=== PATIENT | female | born 1940 | race Caucasian/White ===

== ENCOUNTER 2019-07-29 11:47 | Outpatient (CLI) | payer MEDICARE, SELFPAY ==
--- NOTE | ~2019-07-29 | MM_ITS ---
MM screen RT diag LT w mariano DATE: 07/29/2019 12:14 INDICATION: Microcalcification follow-up TECHNIQUE: Digital ML, MLO and cc Tomosynthesis with composite 2-D views. COMPARISON: 03/07/2019, 08/14/2018 left diagnostic digital mammogram examinations 07/25/2018, 07/17/2017, 07/15/2016 bilateral digital screening mammogram examinations FINDINGS: Bilateral scattered benign calcifications including some regional secretory benign-appearin g calcifications on the left. No suspicious mass or architectural distortion, malignant calcification , skin thickening or retraction or significant new or developing density is detected. IMPRESSION: BI-RADS Category 2: Benign Recommendation: Routine mammographic screening Reviewed, dictated and finalized at Location A. Reviewed, dictated and finalized at location A. 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
== END 2019-07-29 11:48 | disposition home or self-care (01) ==
PROVIDERS: PCP Internal Medicine; Visit Provider Internal Medicine
DX: Z12.31 Encounter for screening mammogram for malignant neoplasm of breast (principal); R92.8 Other abnormal and inconclusive findings on diagnostic imaging of breast
CPT/HCPCS: 77063; 77065; 77067

== ENCOUNTER 2020-12-29 09:45 | Outpatient (CLI) | payer MEDICARE, SELFPAY ==
--- NOTE | ~2020-12-29 | MM_ITS ---
EXAMINATION: MM screening elicia BI w mariano HISTORY: Screening TECHNIQUE: Craniocaudal and mediolateral oblique 3-D tomosynthesis images were obtained and synthetic 2-D images were generated. CAD analysis was submitted and interpreted. COMPARISON: Comparison to multiple prior studies sequentially, with oldest reviewed study dated 06/29. BREAST PARENCHYMAL COMPOSITION: There are scattered areas of fibroglandular density. FINDINGS: There are developing clustered indeterminate calcifications upper outer quadrant of the rig ht breast. The left breast is stable without evidence for malignancy. IMPRESSION: 1. Developing clustered indeterminate right breast calcifications, upper outer quadrant. 2. Magnification views are recommended. BI-RADS Category 0: Incomplete: Needs additional imaging evaluation. Reviewed, dictated and finalized at location A.
--- NOTE | ~2020-12-29 | DEXA_ITS ---
CORRECTED REPORT Ordering provider changed to Josemanuel Huynh MD [id number] Bone Density Report Name: Roselyn Otero Age: 80 Sex: Female Ethnicity: White Date of : 1940 Indication: postmenopausal; height loss; hysterectomy; Referring Provider: Mick, Magalie Hickman Study: Bone densitometry was performed. Exam Date: December 29, 2020 Accession number: [id number] Bone Density: Region BMD T-score Z-score Classification AP Spine (L1-L4) 0.980 -0.6 2.1 Normal Femoral Neck (Left) 0.611 -2.1 0.2 Osteopenia Total Hip (Left) 0.764 -1.5 0.7 Osteopenia Total Hip Bilateral Avg 0.744 -1.7 0.6 Osteopenia Femoral Neck (Right) 0.676 -1.6 0.8 Osteopenia Total Hip (Right) 0.724 -1.8 0.4 Osteopenia World Health Organization criteria for BMD impression classify patients as: Normal (T-score at or above -1.0), Osteopenia (T-score between -1.0 and -2.5), or Osteoporosis (T-score at or below -2.5). 10-year Fracture Risk(1): Major Osteoporotic Fracture 16% Hip Fracture 5.1% Reported Risk Factors: [place] (), Neck BMD=0.611, BMI=28.6 (1) FRAX(R) Version 3.08. Fracture probability calculated for an untreated patient. Fracture probability may be lower if the patient has received treatment. Previous Exams: Region Exam Age BMD T-score BMD Change BMD Change Date g/cm2 vs Baseline vs Previous AP Spine(L1-L4) 12/29/2020 80 0.980 -0.6 0.009(0.9%)# 0.009(0.9%)# 08/23/2013 73 0.971 -0.7 Total Hip(Left) 12/29/2020 80 0.764 -1.5 -0.126(-14.1%) -0.126(-14.1%) 08/23/2013 73 0.889 -0.4 Total Hip(Right) 12/29/2020 80 0.724 -1.8 -0.177(-19.6%) -0.177(-19.6%) 08/23/2013 73 0.901 -0.3 *Denotes significance at 95% confidence level, LSC for AP Spine = 0.022 g/cm2, LSC for Total Hip = 0.027 g/cm2 Clinical Information Provided by Patient: Has the following medical conditions: Hysterectomy, PRIMARY BILIARY CIRRHOSIS Patient maximum height was 64 Menopause Age: 49 No regular weight bearing exercise Does not regularly consume dairy products Drinks caffeinated beverages Onset of menses at age 10 Number of children 2 Impression: The patient has low bone mass, based on the Left Femoral Neck T-score. The patient has an estimated ten-year risk of hip fracture of 5.1% and an estimated ten-year risk of major fracture of 16%, based on the WHO FRAX algorithm. No significant bone loss was observed. D
== END 2020-12-29 09:46 | disposition home or self-care (01) ==
PROVIDERS: PCP Internal Medicine; Visit Provider Nurse Practitioner Obstetrics & Gynecology
DX: Z12.31 Encounter for screening mammogram for malignant neoplasm of breast (principal); Z78.0 Asymptomatic menopausal state; K74.3 Primary biliary cirrhosis; R92.8 Other abnormal and inconclusive findings on diagnostic imaging of breast; M85.852 Other specified disorders of bone density and structure, left thigh; M85.851 Other specified disorders of bone density and structure, right thigh; M85.88 Other specified disorders of bone density and structure, other site
CPT/HCPCS: 77063; 77067; 77080

== ENCOUNTER 2021-02-11 12:23 | Outpatient (CLI) | payer MEDICARE, SELFPAY ==
--- NOTE | ~2021-02-11 | MM_ITS ---
EXAMINATION: MM diagnostic mammo unilat RT HISTORY: Indeterminate right breast calcifications on screening mammogram TECHNIQUE: Additional views of the right breast were performed. CAD analysis was submitted and interp reted. COMPARISON: 12/29/2020, 09/05/2018, 07/25/2018 BREAST PARENCHYMAL COMPOSITION: The breasts are almost entirely fatty. FINDINGS: There are grouped calcifications in the far posterior third of the upper outer quadrant emiliano ast at 11:00 location 16 cm from the nipple which are too few in number to characterize morphological ly but appear to be round. No associated mass or architectural distortion is identified. IMPRESSION: 1. Probably benign right breast calcifications. 2. Recommend 6 month follow-up right diagnostic mammogram. BI-RADS category 3, probably benign findings. Reviewed, dictated and finalized at location A.
== END 2021-02-11 12:24 | disposition home or self-care (01) ==
LOC: ANHIMG 12:25
PROVIDERS: PCP Internal Medicine; Visit Provider Nurse Practitioner Obstetrics & Gynecology
DX: R92.8 Other abnormal and inconclusive findings on diagnostic imaging of breast (principal)
CPT/HCPCS: 77065

== ENCOUNTER 2021-10-28 12:26 | Outpatient (CLI) | payer MEDICARE, SELFPAY ==
--- NOTE | ~2021-10-28 | MM_ITS ---
EXAMINATION: MM diagnostic mammo unilat RT HISTORY: Six-month follow-up for probably benign right breast calcifications TECHNIQUE: Craniocaudal, mediolateral, and mediolateral oblique views of the right breast are obtaine d without and with magnification views. CAD analysis was submitted and interpreted. COMPARISON: 02/11/2021, 12/29/2020,07/25/2018 BREAST PARENCHYMAL COMPOSITION: The breasts are almost entirely fatty. FINDINGS: There are stable grouped calcifications in the far posterior third of the upper outer quadr ant of the breast at the 11:00 location 16 cm from the nipple. These appear to be round in morphology but remain too few in number to characterize. No associated mass or architectural distortion has dev eloped. IMPRESSION: 1. Probably benign right breast calcifications. 2. Recommend 6 month follow-up diagnostic mammogram. BI-RADS category 3, probably benign findings. Reviewed, dictated and finalized at location A. 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
== END 2021-10-28 12:27 | disposition home or self-care (01) ==
PROVIDERS: PCP Internal Medicine; Visit Provider Nurse Practitioner Obstetrics & Gynecology
DX: R92.8 Other abnormal and inconclusive findings on diagnostic imaging of breast (principal)
CPT/HCPCS: 77065

== ENCOUNTER 2022-02-27 14:56 | Emergency (ER) | payer MEDICARE, SELFPAY ==
--- NOTE | 2022-02-27 15:03 | ED.SOB ---
HPI - SOB/Dyspnea General Chief Complaint: Shortness of Breath/Dyspnea Stated Complaint: sob Time Seen by Provider: 02/27/22 15:03 Source: patient and RN notes reviewed Mode of arrival: ambulatory Limitations: no limitations History of Present Illness HPI Narrative: 81-year-old female presents to the [facility] with complaints of chest pain and shortness of breath that is been progressively getting worse over the last 5 to 7 days. Denies any cardiac history. denies any respiratory disease. Patient drove herself to the clinic, was unable to walk past the first chairs in waiting room, had to sit down and catch her breath. Patient sats in low 90s, patient tachypneic MD elicited complaint: shortness of breath and chest pain (Left-sided) Exacerbating factors: exertion and movement Related Data Home Medications Medication Instructions Recorded Confirmed colestipol 1 gram tablet 2 gm PO BID 08/07/19 02/14/22 magnesium oxide 400 mg PO DAILY 08/16/19 02/14/22 calcium carbonate 600 mg calcium 600 mg PO BID 07/17/20 02/14/22 (1,500 mg) tablet (Calcium) cholecalciferol (vitamin D3) 25 25 mcg PO DAILY 07/17/20 02/14/22 mcg (1,000 unit) capsule (Vitamin D3) ursodiol 300 mg capsule 600 mg PO BID 07/17/20 02/14/22 Allergies Allergy/AdvReac Type Severity Reaction Status Date / Time shrimp Allergy Mild nausea, Verified 02/27/22 15:52 vomiting SHELLFISH Allergy Unknown N&V Uncoded 02/27/22 15:52 Review of Systems Review of Systems: All systems reviewed & are unremarkable except as noted in HPI and below Constitutional: Constitutional: Reports no additional constitutional complaints, Denies chills and Denies fever(s) Eyes: Eyes: Reports no additional eye complaints ENT: Reports system reviewed and no additional complaints, except as documented Cardiovascular: Cardiovascular: Reports as per HPI, Reports chest pain and Reports rapid heart rate Respiratory: Respiratory: Reports as per HPI, Denies cough, Reports dyspnea, Reports dyspnea on exertion, Denies stridor and Denies wheezing Gastrointestinal: Gastrointestinal: Reports no additional gastrointestinal complaints Musculoskeletal: Musculoskeletal: Reports no additional musculoskeletal complaints Integumentary/Breasts: Skin/Breast: Reports system reviewed and no additional complaints, except as docu Neurologic: Reports system reviewed and no additional complaints, except as documented Psychiatric: Psychiatric: Reports no additional psychiatric complaints Allergic/Immunologic: Allergic/Immunologic: Reports no additional allergic/immunologic complaints [facility] Past Medical History Medical History Adult hypothyroidism Benign essential hypertension Carpal tunnel syndrome Fatigue Personal history of gout Primary biliary cholangitis Sleep apnea, unspecified Surgical History Surgical History H/O: hysterectomy History of bladder surgery History of cholecystectomy History of colon resection History of total right knee replacement Family History Family History Sibling Family history of rheumatoid arthritis Family history of heart disease in male family member before age 55 Family history of obesity Hypertension Family history of diabetes mellitus in first degree relative Mother Family history of osteoarthritis Family history of congestive heart failure Hypertension Family history of arthritis Father Cerebrovascular accident Family history of diabetes mellitus in first degree relative Other Diabetes mellitus Family history of cardiovascular disease Social History Social History Smoking packs per day: 2 Smoking cigarettes per day: 40.0 Years smoked: 30 Smoking pack-years: 60.00 Smoking status: Former smoker Tobacco
[2022-02-27 15:04] VITALS: BP 115/56; PULSE 107; RESP 16; TEMP 36.5; O2SAT 94
--- NOTE | 2022-02-27 15:42 | PC.NURSE ---
requested son to be called and updated on status, transferred to [facility], and son given information.
== END 2022-02-27 15:24 | disposition short-term general hospital (02) ==
PROVIDERS: Emergency Provider Nurse Practitioner
DX: R07.9 Chest pain, unspecified (principal); R06.02 Shortness of breath; E03.9 Hypothyroidism, unspecified; I10 Essential (primary) hypertension; Z87.891 Personal history of nicotine dependence
CPT/HCPCS: 99215; G0463

== ENCOUNTER 2022-02-27 15:41 | Inpatient (IN) | payer MEDICARE, SELFPAY ==
[2022-02-27] VITALS (15 sets, daily range): BP systolic 101–137; BP diastolic 40–86; PULSE 89–149; RESP 18–28; TEMP 36.3–36.7; O2SAT 92–98; BMI 28.5
--- NOTE | ~2022-02-27 | US_ITS ---
EXAMINATION: US venous doppler [facility] DATE: 03/01/2022 10:45 INDICATION: Shortness of breath. Elevated d-dimer. TECHNIQUE: Grayscale ultrasound images without and with compression and Doppler ultrasound images of the bilateral lower extremity veins were obtained. COMPARISON: None. FINDINGS: The visualized portions of right common femoral vein, profunda (deep) femoral vein, femoral vein, pop liteal vein, posterior tibial veins, peroneal veins, gastrocnemius vein and greater saphenous vein ou tflow are patent. The visualized portions of left common femoral vein, profunda femoral vein, femoral vein, popliteal v ein, posterior tibial veins, peroneal veins, gastrocnemius vein and greater saphenous vein outflow ar e patent. IMPRESSION: 1. No deep venous thrombosis in either lower limb. Reviewed, dictated and finalized at location A.
--- NOTE | ~2022-02-27 | NM_ITS ---
EXAMINATION: NM pulmonary perfusion DATE: 03/01/2022 11:17 INDICATION: Soreness of breath with elevated d-dimer. TECHNIQUE: 5.6 mCi Tc-99m MAA by intravenous route. Scintigraphic images of the chest were obtained. COMPARISON: Chest radiograph dated 03/01/[address] dated 02/27/2022 FINDINGS: There is a large perfusion defect involving the anterior segment of the left upper lobe with correspo nding consolidation on prior chest radiograph and CT. Digital large unmatched perfusion defect in the anteromedial basilar segment of the left lower lobe. Unmatched moderate-sized perfusion defects in t he posterior aspect of the apical posterior segment of the left upper lobe and small in the superior segment of the left lower lobe. Moderate-sized unmatched perfusion defect at the superior segment of the right lower lobe and at the medial segment of the right middle lobe. IMPRESSION: 1. High probability for pulmonary embolism. Reviewed, dictated and finalized at location A.
--- NOTE | ~2022-02-27 | CT_ITS ---
EXAMINATION: CT diagnostic chest wo con DATE: 02/27/2022 17:42 INDICATION: abnormal chest xray TECHNIQUE: Computed tomography (CT) of the chest was performed without intravenous contrast. Automate d exposure control and iterative reconstruction technique were employed. The dose-length product was 135.82 mGy-cm. COMPARISON: X-ray chest, same date. CT chest 12/22/2016. FINDINGS: CHEST: Thoracic aorta: No dilation. Arch calcification. Lung parenchyma and airways: Motion artifact in the lungs. Consolidation with air bronchograms in the anterior segment of the left upper lobe. Background of possible mosaic attenuation and tree-in-bud o pacities, may reflect chronic changes such as bronchiolitis but poorly visualized due to motion. Thoracic inlet, axillae and chest wall: No thyroid or soft tissue mass. No axillary lymphadenopathy. Mediastinum: Mediastinal lymphadenopathy. Heart and pericardium: Normal heart size. No pericardial effusion. Coronary artery calcifications: Mild. Pleura: No effusion or mass. Upper abdomen: No significant finding. Thoracic bones: No acute osseous finding in the chest. IMPRESSION: Segmental left upper lobe consolidation, likely representing pneumonia. This finding should be follow ed to ensure resolution, after appropriate therapy and time interval. Reviewed, dictated and finalized at location K. IMPRESSION: Segmental left upper lobe consolidation, likely representing pneumonia. This fi nding should be followed to ensure resolution, after appropriate therapy and ti me interval.
--- NOTE | ~2022-02-27 | XR_ITS ---
EXAMINATION: XR chest 1V portable Exam Date/Time: 02/27/2022 15:55 CDT HISTORY: CP and SOB Comparison: X-ray chest 02/18/[address] chest 12/22/2016. RESULT: Lines, tubes, and devices: None. Lungs and pleura: Ill-defined left suprahilar consolidation. Emphysematous and senescent changes. Cardiomediastinal silhouette: Stable cardiomediastinal silhouette. Other: No acute osseous or upper abdominal finding. IMPRESSION: Left suprahilar opacity may reflect the consolidation of pneumonia or a suprahilar mass. Consider CT of the chest with contrast for further evaluation. Reviewed, dictated and finalized at location K. IMPRESSION: Left suprahilar opacity may reflect the consolidation of pneumonia or a suprahi lar mass. Consider CT of the chest with contrast for further evaluation.
--- NOTE | ~2022-02-27 | XR_ITS ---
EXAMINATION: XR chest 2V DATE: 03/01/2022 11:15 INDICATION: Shortness of breath TECHNIQUE: AP and lateral views of the chest are obtained. COMPARISON: 02/27/2022 FINDINGS: Left upper lobe airspace opacities persist with slight improvement. No pleural effusion or pneumothorax. The cardiomediastinal silhouette is normal. There is mild thoracic spondylosis. Calcifi ed pulmonary nodules and calcified left hilar lymph nodes are consistent with old granulomatous disea se. IMPRESSION: 1. Left upper lobe pneumonia with slight improvement. Reviewed, dictated and finalized at location B.
--- NOTE | 2022-02-27 15:51 | ECG_ITS ---
Measurements Intervals [place] Rate: 99 P: 73 AL: 145 QRS: -43 QRSD: 107 T: 84 QT: 332 QTc: 427 Interpretive Statements SINUS RHYTHM LEFT AXIS DEVIATION CANNOT RULE OUT SEPTAL INFARCT, AGE INDETERMINATE BORDERLINE ST-T WAVE ABNORMALITY- HIGH LATERAL LEADS BASELINE ARTIFACT- I, II, AVR ABNORMAL ECG Electronically Signed On 02-27-2022 17:25:12 CDT by Escobar Howell D.O.
[2022-02-27 16:02] LABS: Hematocrit 37.6 % (37.0-47.0); Mean Corpuscular HGB Conc 31.9 g/dl (32-36); Mean Corpuscular Hemoglobin 25.8 pg (26-34); Mean Corpuscular Volume 80.7 fl (80-100); Mean Platelet Volume 11.4 fl (7.4-10.4); Platelet Count Result 266 k/mm3 (150-375); Red Blood Count 4.66 M/mm3 (4.2-5.4); Red Cell Distribution Width 16.8 % (11.5-14.5); White Blood Count 45.7 K/mm3 (4.5-10.0)
[2022-02-27 16:11] LABS: Alanine Aminotransferase 18 U/L (6-35); Albumin Level 3.2 g/dL (3.5-5.1); Alkaline Phosphatase 172 U/L (38-126); Anion Gap 7 mmol/L (8-16); Aspartate Amino Transferase 20 U/L (14-36); Bilirubin,Total 1.1 mg/dL (0.2-1.3); Blood Urea Nitrogen 31 mg/dL (7-17); Calcium 9.6 mg/dL (8.4-10.2); Carbon Dioxide 23 mmol/L (22-30); Chloride 104 mmol/L (98-107); Estimated CRCL calculation 20 ml/min; Estimated Glomerular Filt Rate 27; Glucose 96 mg/dL (65-110); Lipase 12 U/L (23-300); Potassium 4.6 mmol/L (3.4-5.0); Sodium 134 mmol/L (137-145)
[2022-02-27 16:21] LABS: INR 1.2; Partial Thromboplastin Time 24.5 SECONDS (22.3-36.8); Prothrombin Time 14.7 Seconds (11.1-14.7)
[2022-02-27 16:23] LABS: Troponin I < 0.012 ng/mL (0.000-0.034)
[2022-02-27 16:37] LABS: Band Neutrophils Percent 9 % (0-6); Lymphocytes Absolute Manual 0.45 K/mm3 (1.1-4.5); Metamyelocytes Percent 2 %; Monocytes Absolute Manual 2.28 K/mm3 (0.1-0.90); Monocytes Percent Manual 5 % (3-9); Neutrophils Absolute Manual 42.04 K/mm3 (1.7-7.2); Neutrophils Percent Manual 83 % (46-73); Total Cells Counted 100
[2022-02-27 16:38] LABS: Anisocytosis 1+ (NORMAL); Burr Cells 1+ (NORMAL); Platelet Estimate Adequate (Adequate); SARS-CoV-2 RNA PCR Negative
[2022-02-27 16:49] LABS: NT Pro B Type Natriuretic Pept 4200 pg/mL (5-100)
[2022-02-27 17:02] LABS: Alveolar/Arterial O2 Gradient 52.8 mmHg; Base Excess ABG -4.4 mEq/l (+/-2.0); Fractional Inspired Oxygen 21 %; HCO3 ABG 19.6 mEq/l (22.0-26.0); Oxygen Content ABG 15.6 %vol (16.0-22.0); Oxygen Saturation ABG 90.2 % (95.0-100.0); Oxyhemoglobin 88.5 % THb (90.0-100.0); PCO2 ABG 32.8 mmHg (35.0-45.0); PO2 ABG 57.7 mmHg (80.0-100.0); PO2 FiO2 Ratio Arterial Blood 2.75 %; Total Hemoglobin 12.5 g/dL (12.0-18.0); pH ABG 7.394 (7.350-7.450)
[2022-02-27 17:03] LABS: Device ROOM AIR; Modified Allen's Test Pass; Site Drawn RIGHT RADIAL
[2022-02-27 17:19] LABS: D Dimer 2.69 ug/mL (<0.48)
--- NOTE | 2022-02-27 17:29 | PC.NURSE ---
Pt to CT scan via stretcher at this time.
[2022-02-27] MEDS: FUROSEMIDE INJ 40 MG/4 ML VIAL IV PUSH (17:36)
--- NOTE | 2022-02-27 17:47 | ED.CHESTPAIN ---
HPI - Chest Pain General Chief Complaint: Chest Pain Stated Complaint: CP LEFT SIDE FROM URGENT CARE Time Seen by Provider: 02/27/22 15:53 History of Present Illness HPI narrative: cp for a week with cough and sob getting worse wiht exertion went to [facility] and sent here for ? ekg chagspike but on arrival no ekg mayuri no fever/sick contacts or travel or leg pain or swelling Related Data Home Medications Medication Instructions Recorded Confirmed colestipol 1 gram tablet 2 gm PO BID 08/07/19 02/14/22 magnesium oxide 400 mg PO DAILY 08/16/19 02/14/22 calcium carbonate 600 mg calcium 600 mg PO BID 07/17/20 02/14/22 (1,500 mg) tablet (Calcium) cholecalciferol (vitamin D3) 25 25 mcg PO DAILY 07/17/20 02/14/22 mcg (1,000 unit) capsule (Vitamin D3) ursodiol 300 mg capsule 600 mg PO BID 07/17/20 02/14/22 Allergies Allergy/AdvReac Type Severity Reaction Status Date / Time shrimp Allergy Mild nausea, Verified 02/27/22 15:52 vomiting SHELLFISH Allergy Unknown N&V Uncoded 02/27/22 15:52 Review of Systems Constitutional: Comments: CONSTITUTIONAL: Denies fever, chills, or sweats. EYES: Denies visual changes, redness, or discharge. ENT: Denies rhinorrhea, congestion, sore throat, or otalgia. CARDIOVASCULAR: has chest pain, palpitations, or edema. RESPIRATORY: hascough or dyspnea. GASTROINTESTINAL: Denies abdominal pain, nausea, vomiting, or diarrhea. GENITOURINARY: Denies dysuria or hematuria. SKIN: Denies rash or itching. MUSCULOSKELETAL: Denies back pain, joint pain, or myalgia. NEUROLOGIC: Denies headache, numbness, or weakness. PSYCHIATRIC: Denies anxiety or depression. [facility] Past Medical History Medical History Adult hypothyroidism Benign essential hypertension Carpal tunnel syndrome Fatigue Personal history of gout Primary biliary cholangitis Sleep apnea, unspecified Surgical History Surgical History H/O: hysterectomy History of bladder surgery History of cholecystectomy History of colon resection History of total right knee replacement Family History Family History Sibling Family history of rheumatoid arthritis Family history of heart disease in male family member before age 55 Family history of obesity Hypertension Family history of diabetes mellitus in first degree relative Mother Family history of osteoarthritis Family history of congestive heart failure Hypertension Family history of arthritis Father Cerebrovascular accident Family history of diabetes mellitus in first degree relative Other Diabetes mellitus Family history of cardiovascular disease Social History Social History Smoking packs per day: 2 Smoking cigarettes per day: 40.0 Years smoked: 30 Smoking pack-years: 60.00 Smoking status: Former smoker Tobacco type: cigarettes Second hand tobacco smoke exposure: No Smoking end date: 08/28/87 Alcohol intake: former Substance use: never Substance use type: does not use Exam Const: Other: APPEARANCE: Well appearing, no pain in distress, well-nourished. Head normocephalic atraumtaic. EYES: PERRLA/EOMI, conjunctivae very clear. NOSE: Normal no drainage EARS:TMS clear Harry Mendez, with good light reflex. THROAT: Pharynx clear, no exudate. NECK: Supple. No adenopathy, no masses. RESPIRATORY: Airway patent, repsirations nonlabored. Clear to auscultation bilaterally, no rales, rhonchi, wheezing. CARDIOVASCULAR: Regular rate and rhythm without murmurs rubs or gallops. ABDOMINAL: Soft, nontender, nondistended, no hepatosplenomegally MUSCULOSKELETAl: Moves all extremities. Strenght/ROM intact, No edema, No calf tenderness. NEURO: Alert. Cranial nerves II through XII intact. Good gait. Good coordination SKIN:: Warm, dry. Normal Color PSY
--- NOTE | 2022-02-27 18:02 | PM.IMHP ---
H&P: HPI History of Present Illness Date/Time: Patient was placed observation status for expected length of stay less than 23 hours for management, will plan to re-evaluate tomorrow for improvement. 02/27/22 18:02 Chief Complaint: Shortness of breath Narrative: Ms. Otero is a is here old female who presented to an outside urgent care with complaints of chest discomfort and shortness of breath. Patient was sent here to the emergency room for questionable EKG changes. Upon arrival to emergency room never no significant EKG changes. Patient's main complaint was shortness of breath. Patient states she has had shortness of breath with exertion for years, but since Monday she has had shortness of breath at rest. Patient denies any abnormal cough. Patient states she has a chronic dry cough with no sputum production. Patient denies any fever or chills at home. Patient states that she does have a constant pain to her left breast from the lateral breast over to her nipple and coughing makes the pain worse. Patient denies any history of COPD or asthma. Patient denies any history of coronary artery disease or myocardial infarction. Patient denies any sick contacts and any recent travel. Patient states she has been taking all medication without any difficulty. Upon evaluation emergency room patient was noted to have a significantly elevated white blood cell count of 45.7. Patient denies any history of cancer or any leukemia or lymphoma. Patient had chest x-ray that showed left suprahilar opacity may reflect the consolidation of pneumonia or suprahilar mass. Consider CT of the chest with contrast for further evaluation. Patient was unable to undergo CT the chest with contrast secondary to kidney function, so she did undergo CT without contrast. CTA chest without contrast shows segmental left upper lobe consolidation, likely representing pneumonia. This finding should be followed to ensure resolution, after appropriate therapy and time interval. Patient has a known history of hypothyroidism, hypertension, chronic fatigue, gout, and history of tobacco abuse. Review of Systems Review of Systems: A 12 point review of systems was completed patient all pertinent positive and negative per HPI the remainder are unremarkable. [facility] Past Medical History Medical History Adult hypothyroidism Benign essential hypertension Carpal tunnel syndrome Fatigue Personal history of gout Primary biliary cholangitis Sleep apnea, unspecified Surgical History Surgical History H/O: hysterectomy History of bladder surgery History of cholecystectomy History of colon resection History of total right knee replacement Family History Family History Sibling Family history of rheumatoid arthritis Family history of heart disease in male family member before age 55 Family history of obesity Hypertension Family history of diabetes mellitus in first degree relative Mother Family history of osteoarthritis Family history of congestive heart failure Hypertension Family history of arthritis Father Cerebrovascular accident Family history of diabetes mellitus in first degree relative Other Diabetes mellitus Family history of cardiovascular disease Social History Social History Smoking packs per day: 2.5 Smoking cigarettes per day: 50.0 Years smoked: 35 Smoking pack-years: 87.50 Smoking status: Former smoker Tobacco type: cigarettes Second hand tobacco smoke exposure: No Smoking end date: 08/28/87 Alcohol intake: never Substance use: never Substance use type: does not use Spiritual care concerns: No Meds Home Medications and Allergies Home Medications Medication Instructions Recorded Confirmed Type col
[2022-02-27] MEDS: ENOXAPARIN 80 MG/0.8 ML SYRINGE 70 MG SUB-Q (18:16)
[2022-02-27 18:26] LABS: CRP 24.6 mg/dL (<1.0)
[2022-02-27 18:26] LABS: Lactic Acid Reflex 3.1 mmol/L (0.7-2.0)
[2022-02-27 18:39] LABS: Troponin I < 0.012 ng/mL (0.000-0.034)
--- NOTE | 2022-02-27 19:15 | PC.NURSE ---
Assumed care of pt at this time. Pt alert and upright on stretcher, updated on POC.
--- NOTE | 2022-02-27 19:45 | ADMGEN ---
This patient, Roselyn Otero, was admitted to IMU Room 213-01. Patient/family oriented to hospital policies and general routines including ID bracelet, bed and alarms, visiting hours, pain management, procedures, bathroom and other care routines, personal items, smoking policy, room service/diet, and visiting hours. Information on how to activate the Rapid Response Team has been discussed. Patient/Family are encouraged to report perceived risks to care and to ask questions if they do not understand what they are told or what they should do.
[2022-02-27] MEDS: IPRATROPIUM BR 0.02% INH SOLN 0.5 MG/2.5 ML VIAL INHALATION (21:05)
[2022-02-27] MEDS: ALBUTEROL SULFATE NEB 2.5 MG/3 ML INH INHALATION (21:05)
[2022-02-27 21:15] LABS: Reflex Lactic Acid Yes or No Add Lactic
[2022-02-27] MEDS: SODIUM CHLORIDE 0.9% IV 1,000 ML 100 ML IV CONT (21:51)
[2022-02-27 21:59] LABS: Lactic Acid 4.2 mmol/L (0.7-2.0)
[2022-02-27 22:06] LABS: Troponin I < 0.012 ng/mL (0.000-0.034)
[2022-02-28] VITALS (30 sets, daily range): BP systolic 89–122; BP diastolic 49–66; PULSE 61–150; RESP 16–115; TEMP 36.2–36.7; O2SAT 88–98
[2022-02-28] MEDS: COLESTIPOL HCL 1 GM TABLET PO ×2 (02:39→20:43)
[2022-02-28] MEDS: IPRATROPIUM BR 0.02% INH SOLN 0.5 MG/2.5 ML VIAL INHALATION ×4 (02:45→21:09)
[2022-02-28] MEDS: ALBUTEROL SULFATE NEB 2.5 MG/3 ML INH INHALATION ×4 (02:45→21:09)
--- NOTE | 2022-02-28 02:53 | ECG_ITS ---
Measurements Intervals [place] Rate: 129 P: FL: 0 QRS: -42 QRSD: 114 T: 92 QT: 306 QTc: 449 Interpretive Statements ATRIAL FIBRILLATION WITH RAPID VENTRICULAR RESPONSE LEFT AXIS DEVIATION INTRAVENTRICULAR CONDUCTION DELAY DELAYED PRECORDIAL R/S TRANSITION ST-T WAVE ABNORMALITY IN HIGH LATERAL LEADS- CONSIDER ISCHEMIA ABNORMAL ECG Electronically Signed On 03-03-2022 8:19:35 CDT by Escobar Howell D.O.
--- NOTE | 2022-02-28 03:47 | ECG_ITS ---
Measurements Intervals [place] Rate: 79 P: 64 KS: 159 QRS: -40 QRSD: 113 T: 75 QT: 377 QTc: 433 Interpretive Statements SINUS RHYTHM LEFT AXIS DEVIATION INTRAVENTRICULAR CONDUCTION DELAY BASELINE ARTIFACT- I, II, AVR, AVL BORDERLINE ECG Electronically Signed On 02-28-2022 7:42:08 CDT by Escobar Hwoell D.O.
[2022-02-28 04:30] LABS: Hematocrit 33.1 % (37.0-47.0); Hemoglobin 10.5 g/dL (12.0-15.0); Mean Corpuscular HGB Conc 31.7 g/dl (32-36); Mean Corpuscular Hemoglobin 25.6 pg (26-34); Mean Corpuscular Volume 80.7 fl (80-100); Mean Platelet Volume 12.3 fl (7.4-10.4); Platelet Count Result 181 k/mm3 (150-375); Red Cell Distribution Width 16.5 % (11.5-14.5); White Blood Count 39.2 K/mm3 (4.5-10.0)
[2022-02-28] MEDS: AMIODARONE 150 MG/D5W 100 ML 150 MG/100 ML BAG 600 MG IV CONT (04:37)
[2022-02-28 04:42] LABS: Lactic Acid Reflex 1.7 mmol/L (0.7-2.0)
[2022-02-28 04:44] LABS: Anion Gap 5 mmol/L (8-16); Blood Urea Nitrogen 39 mg/dL (7-17); Calcium 8.5 mg/dL (8.4-10.2); Carbon Dioxide 23 mmol/L (22-30); Chloride 104 mmol/L (98-107); Estimated CRCL calculation 19 ml/min; Estimated Glomerular Filt Rate 27; Glucose 90 mg/dL (65-110); Magnesium 1.5 mg/dL (1.6-2.3); Potassium 4.8 mmol/L (3.4-5.0); Sodium 132 mmol/L (137-145)
[2022-02-28] MEDS: AMIODARONE 360 MG/D5W 200 ML 360 MG/200 ML BAG 33.33 MG IV CONT (04:48)
[2022-02-28 04:56] LABS: Band Neutrophils Percent 12 % (0-6); Eosinophils Absolute Manual 0.39 K/mm3 (0.02-0.5); Eosinophils Percent Manual 1 % (0-4); Lymphocytes Absolute Manual 1.56 K/mm3 (1.1-4.5); Monocytes Absolute Manual 0.78 K/mm3 (0.1-0.90); Monocytes Percent Manual 2 % (3-9); Neutrophils Absolute Manual 36.45 K/mm3 (1.7-7.2); Neutrophils Percent Manual 81 % (46-73); Platelet Estimate Adequate (Adequate); Total Cells Counted 100
[2022-02-28 04:57] LABS: Burr Cells 2+ (NORMAL)
[2022-02-28] MEDS: LEVOTHYROXINE SODIUM 100 MCG TABLET BY MOUTH (06:55)
[2022-02-28] MEDS: SODIUM CHLORIDE 0.9% IV 1,000 ML 100 ML IV CONT ×2 (07:46→17:03)
[2022-02-28] MEDS: allopurinoL 100 MG TABLET PO (07:58)
[2022-02-28] MEDS: ursodioL 300 MG CAPSULE 600 MG PO ×2 (07:59→17:04)
[2022-02-28] MEDS: PANTOPRAZOLE 40 MG TABLET PO ×2 (07:59→17:03)
[2022-02-28] MEDS: MAGNESIUM OXIDE 400 MG TABLET PO (07:59)
[2022-02-28] MEDS: ENOXAPARIN 80 MG/0.8 ML SYRINGE 70 MG SUB-Q (08:00)
[2022-02-28] MEDS: AMIODARONE 360 MG/D5W 200 ML 360 MG/200 ML BAG 16.67 MG IV CONT ×2 (09:51→20:45)
--- NOTE | 2022-02-28 13:15 | PM.IMPN ---
Progress Note: A&P Assessment and Plan (1) Left-sided chest pain: Code(s): R07.9 - Chest pain, unspecified Status: Inactive Assessment and Plan: Troponin x3 are negative. EKG shows no acute changes. Patient's chest discomfort sounds more pleuritic in nature since it is worse with coughing. (2) Pneumonia: Code(s): J18.9 - Pneumonia, unspecified organism Status: Acute Assessment and Plan: Patient received azithromycin as well as Rocephin in the emergency room. Will continue with current regimen and monitor patient's laboratories. Will have urine for Legionella and strep pneumoniae performed. Will also place patient on nebulizer treatments every 6 hours routinely. (3) D-dimer, elevated: Code(s): R79.89 - Other specified abnormal findings of blood chemistry Status: Acute Assessment and Plan: Patient is on room air and is not hypoxic. Patient denies any recent travel. Unable to have CT with contrast secondary to patient's kidney function. Will have V/Q scan as well as venous Dopplers performed. Patient will be continued on full-dose Lovenox until these tests can be performed. (4) CKD (chronic kidney disease), stage III: Code(s): N18.30 - Chronic kidney disease, stage 3 unspecified Status: Acute Assessment and Plan: Patient's kidney function is mildly elevated above baseline. Patient's baseline creatinine is 1.1-1.2. Today's creatinine is 1.8. Will gently hydrate patient continue to monitor. Plan Shortness of breath/chest pain Abnormal EKG questionable at urgent care. EKG repeat here with acute findings Atypical chest pain troponin x3 is negative. EKG with no acute changes. Chest pain either musculoskeletal or pleuritic in origin Leukocytosis significantly elevated at 45.7 left shift with bandemia noted Left upper lobe pneumonia. Initial chest x-ray with left suprahilar opacity may reflect a consultation of pneumonia or suprahilar mass. CT chest done 02/27/2022 with segmental left upper lobe consolidation likely representing pneumonia. Patient started on Rocephin and azithromycin. Strep and Legionella ordered nebs treatment. He D-dimer elevated unable to do CT with contrast secondary to renal function. Venous Doppler and V/Q scan performed. On full-dose Lovenox for now. ABG 7.39/32/57/19. COVID swab is negative urine new pneumococcus and Legionella pending. Will order mycoplasma influenza and also a respiratory pathogen panel. Recent travel to [place]. Atrial fibrillation with rapid ventricular rate new onset. Likely related to her underlying sepsis and pneumonia. Was started on amiodarone drip. Back to sinus rhythm since 5:00 a.m. on full-dose Lovenox. Echo ordered. Cardiology consult. Elevated BNP 4200. No prior history of cardiac disorder. Get echo Elevated D-dimer V/Q scan and venous Doppler pending. Continue full-dose Lovenox until ruled out Lactic acidosis at 4.21 at admission. Normalized this morning. Sepsis related to pneumonia. Hypo magnesemia replace KASSANDRA on CKD stage 3 baseline creatinine 1.1-1.2. Admission creatinine 1.8. IV fluid started. Hypertension not on any medications at home Hypothyroidism Chronic fatigue syndrome Gout Former smoker smoked 35 years 2.5 packs per day COVID-19 88 Sleep apnea DVT prophylaxis on Lovenox Code status full code Discussed with the patient and her son at bedside. Subjective Date/time seen: 02/28/22 13:15 Interval history: HPI:Ms. Otero is a is here old female who presented to an outside urgent care with complaints of chest discomfort and shortness of breath.? Patient was sent here to the emergency room for questionable EKG changes.? Upon arrival to emergency room never no significant EKG changes.? Patient's main complaint was shortness of breath.? Patient states she has had shortness of breath with exertion for years, but since Monday she has had shortness of breath at rest.? Patient denies any ab
[2022-02-28] MEDS: MAGNESIUM SULF 1 GM/D5W 100 ML 1 GM/100 ML BAG IVPB (14:19)
[2022-02-28] MEDS: ACETAMINOPHEN 325 MG TABLET 650 MG PO (17:36)
[2022-03-01] VITALS (24 sets, daily range): BP systolic 141–152; BP diastolic 56–83; PULSE 56–86; RESP 16–32; TEMP 36.4–37.3; O2SAT 93–99
--- NOTE | 2022-03-01 | ECHO_ITS ---
Patient Info Name: Roselyn Otero Age: 81 years : 1940 Gender: Female Ht: 61 in Wt: 142 lbs BSA: 1.68 m2 HR: 67 bpm BP: 143 / 64 mmHg Heart Rhythm: Sinus Rhythm Exam Date: 03/01/2022 1:18 PM Exam Location: [facility] Patient Status: Inpatient Admit Date: 02/28/2022 Staff Ordering Physician: Jameson Sifuentes MD [employer] Hand: Yury Levine, RAFFICS, RT Attending Provider: Jameson Sifuentes MD Exam Type: CA echo doppler color flow Study Info Indications I50.9 - Heart failure, unspecified Complete two-dimensional, color flow and Doppler transthoracic echocardiogram is performed. Strain analysis performed. Summary 1. Complete two-dimensional, color flow and Doppler transthoracic echocardiogram is performed. 2. Left ventricular chamber dimension is normal. 3. Left ventricular systolic function is normal, estimated at 55-60%. 4. Right ventricular chamber dimension is normal. 5. Very small amounts of tricuspid and pulmonic valve regurgitation were noted. Left Ventricle Left ventricular chamber dimension is normal. Left ventricular systolic function is normal, estimated at 55-60%. The left ventricular diastolic function is normal. Right Ventricle Right ventricular chamber dimension is normal. Left Atria Left atrial chamber dimension is mildly enlarged. Right Atria Right atrial chamber dimension is normal. Aortic Valve The aortic valve is normal. Pulmonic Valve The pulmonic valve is normal. There is mild pulmonic regurgitation. Mitral Valve The mitral valve has normal leaflets. Tricuspid Valve The tricuspid valve leaflets are normal. There is trace tricuspid valve regurgitation. Pericardium/Pleural The pericardium appears normal. Aorta The aortic root size at the sinus of Valsalva is normal. Left Ventricular Outflow Tract Name Value Normal LVOT 2D LVOT Diameter 2.0 cm LVOT Doppler LVOT Peak Gradient 4 mmHg LVOT Mean Gradient 2 mmHg LVOT VTI 21 cm LVOT VTI/AV VTI Ratio 0.7 LVOT Stroke Volume 69 ml LVOT CO 3.6 l/min LVOT CI 2.1 l/min/m2 Mitral Valve Name Value Normal MV Doppler MV Decel [place] 363 cm/s2 MV PHT 81 ms MV Area (PHT) 2.7 cm2 4.0-5.0 MV Diastolic Function MV E Peak Velocity 101 cm/s MV A Peak Velocity 105 cm/s MV E/A 1.0 MV Decel Time 278 ms MV Annular TDI
[2022-03-01] MEDS: IPRATROPIUM BR 0.02% INH SOLN 0.5 MG/2.5 ML VIAL INHALATION ×4 (02:25→20:00)
[2022-03-01] MEDS: ALBUTEROL SULFATE NEB 2.5 MG/3 ML INH INHALATION ×4 (02:25→20:00)
[2022-03-01 05:22] LABS: Hematocrit 29.9 % (37.0-47.0); Hemoglobin 9.6 g/dL (12.0-15.0); Mean Corpuscular HGB Conc 32.1 g/dl (32-36); Mean Corpuscular Hemoglobin 25.6 pg (26-34); Mean Corpuscular Volume 79.7 fl (80-100); Mean Platelet Volume 11.2 fl (7.4-10.4); Platelet Count Result 224 k/mm3 (150-375); Red Blood Count 3.75 M/mm3 (4.2-5.4); White Blood Count 22.1 K/mm3 (4.5-10.0)
[2022-03-01 05:31] LABS: Alanine Aminotransferase 10 U/L (6-35); Albumin Level 2.3 g/dL (3.5-5.1); Alkaline Phosphatase 115 U/L (38-126); Anion Gap 7 mmol/L (8-16); Aspartate Amino Transferase 14 U/L (14-36); Bilirubin,Total 0.2 mg/dL (0.2-1.3); Blood Urea Nitrogen 36 mg/dL (7-17); Calcium 8.1 mg/dL (8.4-10.2); Carbon Dioxide 20 mmol/L (22-30); Chloride 105 mmol/L (98-107); Estimated CRCL calculation 20 ml/min; Estimated Glomerular Filt Rate 27; Glucose 112 mg/dL (65-110); Magnesium 1.8 mg/dL (1.6-2.3); Potassium 3.3 mmol/L (3.4-5.0); Sodium 132 mmol/L (137-145)
[2022-03-01 05:45] LABS: Band Neutrophils Percent 5 % (0-6); Eosinophils Absolute Manual 0.22 K/mm3 (0.02-0.5); Eosinophils Percent Manual 1 % (0-4); Lymphocytes Absolute Manual 1.32 K/mm3 (1.1-4.5); Monocytes Absolute Manual 0.66 K/mm3 (0.1-0.90); Monocytes Percent Manual 3 % (3-9); Neutrophils Absolute Manual 19.89 K/mm3 (1.7-7.2); Neutrophils Percent Manual 85 % (46-73); Platelet Estimate Adequate (Adequate); Total Cells Counted 100
[2022-03-01] MEDS: LEVOTHYROXINE SODIUM 100 MCG TABLET BY MOUTH (05:53)
[2022-03-01] MEDS: SODIUM CHLORIDE 0.9% IV 1,000 ML 100 ML IV CONT ×3 (06:58→23:04)
--- NOTE | 2022-03-01 08:11 | PM.CNCAR ---
Assessment and Plan Assessment and plan (1) Atrial fibrillation with RVR: Code(s): I48.91 - Unspecified atrial fibrillation Status: Acute Plan This is an 81-year-old lady hospitalized with left upper lobe pneumonia. She has a longstanding history of heavy cigarette smoking undoubtedly has previously undiagnosed COPD as well. She had an episode of asymptomatic atrial fibrillation yesterday in this setting. She was then treated with the IV amiodarone and is back in sinus rhythm at this time. At this moment I am going to recommend stopping the IV amiodarone if we need to use antiarrhythmic drug therapy will pick an alternative agent. We she should be started on an oral anticoagulant which I will start today. Echocardiography will be requested and we will follow up with you. Alan Chou MD [facility] History of Present Illness History of Present Illness Consult date/time: 03/01/22 08:11 Consult reason: atrial fibrillation Reason For Visit: Pneumonia, CP, Elevated BNP and DDIMER Narrative: This is an 81-year-old lady am seeing today at the request of the hospitalist because of atrial fibrillation. The patient has no prior cardiac history and is unknown to me prior to this encounter. She entered the hospital with weekend with complaints of shortness of breath and has been found to have left upper lobe pneumonia. She is on antibiotic treatment of this and has been feeling a little bit better in the last 48 hours. She has longstanding history of heavy cigarette smoking. Yesterday while in the hospital she was on telemetry and it was noted that she went into atrial fibrillation with rapid ventricular response. She was unaware of this and did not feel the sense of tachycardia or palpitations chest pain or any other new symptomatology. She was treated with intravenous amiodarone and after a brief time went back into sinus rhythm. She still has IV amiodarone running this morning and is being seen in that situation. She has no prior history of cardiac problems she denies any exertional chest pain pressure or heaviness. She says that she has to autoimmune diseases including lichen planus and hepatic cirrhosis for which she follows with the the specialist at [facility]. She denies any knowledge of hypertension or diabetes. Despite a long history of heavy smoking she says she is not known to have obvious COPD. Her chest x-ray/CT of the chest suggested a left hilar mass versus pneumonia. Follow-up imaging of this of course was recommended as well. Patient's electrocardiogram shows sinus rhythm with left anterior superior hemiblock Review of Systems Constitutional: Constitutional: Reports no additional constitutional complaints Eyes: Eyes: Reports no additional eye complaints ENT: Reports system reviewed and no additional complaints, except as documented Cardiovascular: Cardiovascular: Reports no additional cardiovascular complaints Respiratory: Respiratory: Reports dyspnea Gastrointestinal: Gastrointestinal: Reports no additional gastrointestinal complaints Musculoskeletal: Musculoskeletal: Reports no additional musculoskeletal complaints Integumentary/Breasts: Skin/Breast: Reports system reviewed and no additional complaints, except as docu Neurologic: Reports system reviewed and no additional complaints, except as documented Endocrine: Endocrine: Reports no additional endocrine complaints Hematologic/Lymphatic: Hematologic/Lymphatic: Reports no additional hematologic/lymphatic complaints Allergic/Immunologic: Allergic/Immunologic: Reports no additional allergic/immunologic complaints PMFSH Past Medical History Medical History Adult hypothyroidism Benign essential hypertension Carpal tunnel syndrome Fatigue Personal history of gout Primary biliary cholangitis Sleep apnea, unspecified Surgical History Surgical History (Reviewed 02/27/22 @ 15:
[2022-03-01] MEDS: allopurinoL 100 MG TABLET PO (09:14)
[2022-03-01] MEDS: MAGNESIUM OXIDE 400 MG TABLET PO (09:14)
[2022-03-01] MEDS: ursodioL 300 MG CAPSULE 600 MG PO ×2 (09:14→17:53)
[2022-03-01] MEDS: PANTOPRAZOLE 40 MG TABLET PO ×2 (09:14→17:54)
[2022-03-01] MEDS: POTASSIUM CHLORIDE 20 MEQ TABLET 40 MEQ PO (09:16)
--- NOTE | 2022-03-01 11:29 | PM.IMPN ---
Progress Note: A&P Assessment and Plan (1) Left-sided chest pain: Code(s): R07.9 - Chest pain, unspecified Status: Inactive Assessment and Plan: Troponin x3 are negative. EKG shows no acute changes. Patient's chest discomfort sounds more pleuritic in nature since it is worse with coughing. (2) Pneumonia: Code(s): J18.9 - Pneumonia, unspecified organism Status: Acute Assessment and Plan: Patient received azithromycin as well as Rocephin in the emergency room. Will continue with current regimen and monitor patient's laboratories. Will have urine for Legionella and strep pneumoniae performed. Will also place patient on nebulizer treatments every 6 hours routinely. (3) D-dimer, elevated: Code(s): R79.89 - Other specified abnormal findings of blood chemistry Status: Acute Assessment and Plan: Patient is on room air and is not hypoxic. Patient denies any recent travel. Unable to have CT with contrast secondary to patient's kidney function. Will have V/Q scan as well as venous Dopplers performed. Patient will be continued on full-dose Lovenox until these tests can be performed. (4) CKD (chronic kidney disease), stage III: Code(s): N18.30 - Chronic kidney disease, stage 3 unspecified Status: Acute Assessment and Plan: Patient's kidney function is mildly elevated above baseline. Patient's baseline creatinine is 1.1-1.2. Today's creatinine is 1.8. Will gently hydrate patient continue to monitor. Plan # Shortness of breath/chest pain presenting complaint # Abnormal EKG questionable at urgent care. EKG repeat here with acute findings # Atypical chest pain troponin x3 is negative. EKG with no acute changes. Chest pain either musculoskeletal or pleuritic in origin # Leukocytosis significantly elevated at 45.7 left shift with bandemia noted. Continues to improve down to 22,000 today # Left upper lobe pneumonia. Initial chest x-ray with left suprahilar opacity may reflect a consultation of pneumonia or suprahilar mass. CT chest done 02/27/2022 with segmental left upper lobe consolidation likely representing pneumonia. Patient started on Rocephin and azithromycin. Strep and Legionella ordered nebs treatment. He D-dimer elevated unable to do CT with contrast secondary to renal function. Venous Doppler and V/Q scan performed. On full-dose Lovenox for now. ABG 7.39/32/57/19. COVID swab is negative urine new pneumococcus and Legionella pending. Will order mycoplasma influenza and also a respiratory pathogen panel. Recent travel to [place]. Venous Doppler duplex is negative. V/Q scan pending today on full-dose Lovenox. Which she also requires for atrial fibrillation. # Atrial fibrillation with rapid ventricular rate new onset. Likely related to her underlying sepsis and pneumonia. Was started on amiodarone drip. Back to sinus rhythm since 5:00 a.m. 02/28/2022. On full-dose Lovenox. Echo ordered. Cardiology consulted and appreciate their recommendations. # Elevated BNP 4200. No prior history of cardiac disorder. Get echo # Elevated D-dimer V/Q scan and venous Doppler pending. Continue full-dose Lovenox until ruled out venous duplex is negative V/Q scan done pending results # Lactic acidosis at 4.21 at admission. Normalized 02/28/2022 # Sepsis related to pneumonia. # Hypo magnesemia replace # KASSANDRA on CKD stage 3 baseline creatinine 1.1-1.2. Admission creatinine 1.8. IV fluid started. Creatinine remains at 1.8. Continue to monitor # Hypertension not on any medications at home # Hypothyroidism # Chronic fatigue syndrome # Gout # Former smoker smoked 35 years 2.5 packs per day COVID-19 88 # Sleep apnea # DVT prophylaxis on Lovenox # Code status full code Subjective Date/time seen: 03/01/22 11:29 Interval history: HPI:Ms. Otero is a is here old female who presented to an outside urgent care with complaints of chest discomfort and shortness of breath.? Patien
[2022-03-01] MEDS: RIVAROXABAN 15 MG TABLET PO (17:54)
[2022-03-01] MEDS: CALCIUM CARBONATE (TUMS) 500 MG (200 MG ELEMENTAL) 400 MG PO (20:14)
[2022-03-01] MEDS: COLESTIPOL HCL 1 GM TABLET PO (20:14)
--- NOTE | 2022-03-01 20:56 | PC.NURSE ---
Report given to Zuleika TOM on med surg. Patient to room 348. All belongings taken with patient.
[2022-03-02] VITALS (16 sets, daily range): BP systolic 148–158; BP diastolic 55–78; PULSE 64–93; RESP 12–18; TEMP 36.4–36.8; O2SAT 93–100
[2022-03-02] MEDS: LEVOTHYROXINE SODIUM 100 MCG TABLET BY MOUTH (05:50)
[2022-03-02 06:26] LABS: Hematocrit 30.2 % (37.0-47.0); Mean Corpuscular HGB Conc 33.1 g/dl (32-36); Mean Corpuscular Hemoglobin 25.7 pg (26-34); Mean Corpuscular Volume 77.6 fl (80-100); Mean Platelet Volume 11.2 fl (7.4-10.4); Platelet Count Result 258 k/mm3 (150-375); Red Blood Count 3.89 M/mm3 (4.2-5.4); Red Cell Distribution Width 16.4 % (11.5-14.5); White Blood Count 14.1 K/mm3 (4.5-10.0)
[2022-03-02 07:01] LABS: Alanine Aminotransferase 11 U/L (6-35); Albumin Level 2.3 g/dL (3.5-5.1); Alkaline Phosphatase 127 U/L (38-126); Anion Gap 5 mmol/L (8-16); Aspartate Amino Transferase 26 U/L (14-36); Bilirubin,Total 0.1 mg/dL (0.2-1.3); Blood Urea Nitrogen 24 mg/dL (7-17); Carbon Dioxide 21 mmol/L (22-30); Chloride 111 mmol/L (98-107); Estimated CRCL calculation 23 ml/min; Estimated Glomerular Filt Rate 39; Glucose 96 mg/dL (65-110); Magnesium 1.8 mg/dL (1.6-2.3); Potassium 3.9 mmol/L (3.4-5.0); Sodium 137 mmol/L (137-145)
--- NOTE | 2022-03-02 07:05 | PM.PNCARD ---
Progress Note: A&P Assessment and Plan (1) Atrial fibrillation with RVR: Code(s): I48.91 - Unspecified atrial fibrillation Status: Acute Plan asymptomatic paroxysmal atrial fibrillation in this 81-year-old lady hospitalized with left upper lobe pneumonia. She also has autoimmune disorders that are chronic as well as she mentioned in the HPI. She has been anticoagulated and is maintaining sinus rhythm. If she has recurrences of atrial fibrillation we will need to resume some antiarrhythmic therapy. At this time we will see how she does while in the hospital. As I mentioned in my consult note I did not wish to keep this lady with chronic pulmonary problems on amiodarone. Alan Chou MD [facility] Subjective Date/time seen: date of service:03/02/22 07:05 Interval history: Follow-up visit in this 81-year-old woman with: Paroxysmal atrial fibrillation which is asymptomatic. She was converted to sinus rhythm with amiodarone which I stopped and she is maintaining sinus rhythm on telemetry. She was systemically anticoagulated with renally adjusted dose of Xarelto. No cardiovascular complaints this morning. Exam Const: General: comfortable and no acute distress HENMT: Mouth: Yes dry mucous membranes Eyes: Sclera: sclerae normal Neck: Neck: supple and no JVD Resp: Effort & Inspection: normal respiratory effort Other: Scant crackles at the left mid lung field, no wheezing Cardio: Rate: regular rate Rhythm: regular rhythm GI: GI Palp: Yes Soft to palpation Auscultation: normal bowel sounds Skin: General skin exam: normal color Neuro: Other: normal cognition Extrem: General: normal to inspection Objective Data Vital Signs Vital Signs: Vital Signs - 24 hr 03/01/22 08:18 03/01/22 08:10 03/01/22 08:19 Temperature Pulse Rate 70 72 Respiratory Rate 16 16 Blood Pressure Pulse Oximetry 94 Oxygen Delivery Room Air Oxygen Flow Rate 03/01/22 08:00 03/01/22 11:31 03/01/22 12:00 Temperature 37.0 C 36.4 C Pulse Rate 68 56 L Respiratory Rate 20 32 H Blood Pressure 150/83 H 146/56 H Pulse Oximetry 94 98 Oxygen Delivery Nasal Cannula Oxygen Flow Rate 1 03/01/22 12:00 03/01/22 08:00 03/01/22 12:00 Temperature Pulse Rate Respiratory Rate Blood Pressure 141/61 H Pulse Oximetry 98 98 Oxygen Delivery Nasal Cannula Nasal Cannula Oxygen Flow Rate 1 1 03/01/22 14:00 03/01/22 14:15 03/01/22 14:23 Temperature Pulse Rate 73 72 Respiratory Rate 16 16 Blood Pressure Pulse Oximetry Oxygen Delivery Nasal Cannula Oxygen Flow Rate 2 03/01/22 08:00 03/01/22 12:00 03/01/22 10:00 Temperature Pulse Rate 68 61 66 Respiratory Rate Blood Pressure Pulse Oximetry Oxygen Delivery Oxygen Flow Rate 03/01/22 14:00 03/01/22 16:00 03/01/22 16:00 Temperature 36.7 C Pulse Rate 67 77 77 Respiratory Rate 20 Blood Pressure 145/69 H Pulse Oximetry 99 Oxygen Delivery Oxygen Flow Rate 03/01/22 19:33 03/01/22 20:00 03/01/22 20:17 Temperature 36.8 C Pulse Rate 86 86 Respiratory Rate 28 H 18 Blood Pressure 145/66 H Pulse Oximetry 94 96 Oxygen Delivery Nasal Cannula Oxygen Flow Rate 1 03/01/22 20:10 03/01/22 20:00 03/01/22 20:00 Temperature Pulse Rate 81 81 84 Respiratory Rate 18 18 Blood Pressure Pulse Oximetry 96 Oxygen Delivery Nasal Cannula Oxygen Flow Rate 1 03/01/22 21:35 03/01/22 21:48 03/02/22 00:00 Temperature 37.3 C Pulse Rate 82 63 76 Respiratory Rate 22 H Blood Pressure 152/66 H Pulse Oximetry 97 Oxygen Delivery Oxygen Flow Rate 03/02/22 04:00 03/02/22 04:00 Temperature 36.7 C Pulse Rate 71 64 Respiratory Rate 16 Blood Pressure 148/78 H Pulse Oximetry 99 Oxygen Delivery Oxygen Flow Rate Intake/Output Intake/Output: Intake & Output 02/27/22 02/28/22 03/01/22 03/02/22 23:59 23:59 23:59 23:59 In
[2022-03-02 07:44] LABS: Band Neutrophils Percent 2 % (0-6); Basophils Absolute Manual 0.14 K/mm3 (0.0-0.1); Basophils Percent Manual 1 % (0-1); Eosinophils Absolute Manual 0.14 K/mm3 (0.02-0.5); Eosinophils Percent Manual 1 % (0-4); Lymphocytes Absolute Manual 2.25 K/mm3 (1.1-4.5); Metamyelocytes Percent 2 %; Monocytes Absolute Manual 0.84 K/mm3 (0.1-0.90); Monocytes Percent Manual 6 % (3-9); Neutrophils Absolute Manual 10.43 K/mm3 (1.7-7.2); Neutrophils Percent Manual 72 % (46-73); Platelet Estimate Adequate (Adequate); Total Cells Counted 100
[2022-03-02] MEDS: ursodioL 300 MG CAPSULE 600 MG PO ×2 (08:22→17:16)
[2022-03-02] MEDS: allopurinoL 100 MG TABLET PO (08:22)
[2022-03-02] MEDS: PANTOPRAZOLE 40 MG TABLET PO ×2 (08:22→17:17)
[2022-03-02] MEDS: MAGNESIUM OXIDE 400 MG TABLET PO (08:23)
[2022-03-02] MEDS: SODIUM CHLORIDE 0.9% IV 1,000 ML 100 ML IV CONT ×2 (08:23→22:11)
[2022-03-02] MEDS: ALBUTEROL SULFATE NEB 2.5 MG/3 ML INH INHALATION ×3 (10:06→20:11)
[2022-03-02] MEDS: IPRATROPIUM BR 0.02% INH SOLN 0.5 MG/2.5 ML VIAL INHALATION ×3 (10:06→20:12)
[2022-03-02] MEDS: RIVAROXABAN 15 MG TABLET PO (17:17)
--- NOTE | 2022-03-02 18:43 | PM.IMPN ---
Progress Note: A&P Assessment and Plan (1) Left-sided chest pain: Code(s): R07.9 - Chest pain, unspecified Status: Inactive Assessment and Plan: Troponin x3 are negative. EKG shows no acute changes. Patient's chest discomfort sounds more pleuritic in nature since it is worse with coughing. 03/02: asymptomatic (2) Pneumonia: Code(s): J18.9 - Pneumonia, unspecified organism Status: Acute Assessment and Plan: Patient received azithromycin as well as Rocephin in the emergency room. Will continue with current regimen and monitor patient's laboratories. Will have urine for Legionella and strep pneumoniae performed. Will also place patient on nebulizer treatments every 6 hours routinely. 03/02: cont abx (3) D-dimer, elevated: Code(s): R79.89 - Other specified abnormal findings of blood chemistry Status: Acute Assessment and Plan: Patient is on room air and is not hypoxic. Patient denies any recent travel. Unable to have CT with contrast secondary to patient's kidney function. Will have V/Q scan as well as venous Dopplers performed. Patient will be continued on full-dose Lovenox until these tests can be performed. 03/02: High probability of PE noted on V/Q scan, Dopplers negative, cont xarelto, dc lovenox (4) CKD (chronic kidney disease), stage III: Code(s): N18.30 - Chronic kidney disease, stage 3 unspecified Status: Acute Assessment and Plan: Patient's kidney function is mildly elevated above baseline. Patient's baseline creatinine is 1.1-1.2. Today's creatinine is 1.8. Will gently hydrate patient continue to monitor. 03/02: Creatinine down to 1.3 today, was 1.8 yesterday baseline appears to be between 1.1-1.3 Plan Comorbidities: 1. Hypertension not on any medications at home 2. Hypothyroidism 3. Chronic fatigue syndrome 4. Gout 5. Former smoker smoked 35 years 2.5 packs per day COVID-19 88 6. Sleep apnea DVT prophylaxis on Lovenox Code status full code Subjective Date/time seen: 03/02/22 18:43 Interval history: Patient states she feels much better than when she came in. No overnight events noted. No chest pain or shortness of breath. No nausea, vomiting or diarrhea. No fevers or chills. Review of Systems Review of Systems: 12 point review of systems was assessed and was negative except as noted in the HPI Exam Narrative: General: No acute distress, alert and oriented per baseline HEENT: Atraumatic, normocephalic, mucous membranes moist CV: Regular rate and rhythm, S1, S2 Lungs: Good air entry, crackles in left lobe Abdomen: Soft, nontender, nondistended Extremities: Normal to inspection, no edema noted Skin: No rashes noted, no lesions or wounds seen Psych: Euthymic, normal affect Objective Data Vital Signs Vital Signs: Vital Signs - 24 hr 03/01/22 19:33 03/01/22 20:00 03/01/22 20:17 Temperature 98.2 F Pulse Rate 86 86 Respiratory Rate 28 H 18 Blood Pressure 145/66 H Pulse Oximetry 94 96 Oxygen Delivery Nasal Cannula Oxygen Flow Rate 1 03/01/22 20:10 03/01/22 20:00 03/01/22 20:00 Temperature Pulse Rate 81 81 84 Respiratory Rate 18 18 Blood Pressure Pulse Oximetry 96 Oxygen Delivery Nasal Cannula Oxygen Flow Rate 1 03/01/22 21:35 03/01/22 21:48 03/02/22 00:00 Temperature 99.1 F Pulse Rate 82 63 76 Respiratory Rate 22 H Blood Pressure 152/66 H Pulse Oximetry 97 Oxygen Delivery Oxygen Flow Rate 03/02/22 04:00 03/02/22 04:00 03/02/22 10:06 Temperature 98.1 F Pulse Rate 71 64 74 Respiratory Rate 16 12 Blood Pressure 148/78 H Pulse Oximetry 99 Oxygen Delivery Oxygen Flow Rate 03/02/22 10:09 03/02/22 08:00 03/02/22 12:05 Temperature Pulse Rate 83 70 Respiratory Rate 12 Blood Pressure Pulse Oximetry 95 Oxygen Delivery Nasal Cannula Oxygen Flow Rate 1 03/02/22 08:04 03/02/22 14:34 03/02/22 14:39 Tem
[2022-03-02] MEDS: COLESTIPOL HCL 1 GM TABLET PO (20:04)
[2022-03-02 20:12] LABS: Pneumococcal Antigen Urine Not Detected (Not Detected)
[2022-03-02] MEDS: guaiFENesin/DEXTROMETHORPHAN 10 ML UDC PO (22:09)
[2022-03-03] VITALS (16 sets, daily range): BP systolic 156–160; BP diastolic 64–72; PULSE 65–94; RESP 16–20; TEMP 36.8–37.2; O2SAT 93–100
[2022-03-03] MEDS: IPRATROPIUM BR 0.02% INH SOLN 0.5 MG/2.5 ML VIAL INHALATION ×3 (02:14→20:31)
[2022-03-03] MEDS: ALBUTEROL SULFATE NEB 2.5 MG/3 ML INH INHALATION ×3 (02:14→20:31)
[2022-03-03 03:55] LABS: Legionella pneumophila Ag Ur Not Detected (Not Detected)
[2022-03-03] MEDS: LEVOTHYROXINE SODIUM 100 MCG TABLET BY MOUTH (05:44)
[2022-03-03 06:40] LABS: Estimated CRCL calculation 28 ml/min; Estimated Glomerular Filt Rate 39
--- NOTE | 2022-03-03 07:47 | PM.IMPN ---
Progress Note: A&P Assessment and Plan (1) Left-sided chest pain: Code(s): R07.9 - Chest pain, unspecified Status: Inactive Assessment and Plan: Troponin x3 are negative. EKG shows no acute changes. Patient's chest discomfort sounds more pleuritic in nature since it is worse with coughing. 03/02: asymptomatic, cardio s/o (2) Pneumonia: Code(s): J18.9 - Pneumonia, unspecified organism Status: Acute Assessment and Plan: Patient received azithromycin as well as Rocephin in the emergency room. Will continue with current regimen and monitor patient's laboratories. Will have urine for Legionella and strep pneumoniae performed. Will also place patient on nebulizer treatments every 6 hours routinely. 03/02: cont abx 03/03: 1/2 bld cx + s.pneumo, repeat bld cx pending today, vanc d/c, start levaquin 750 mg Q48h to complete 14 day course after blood cultures negative, will also need repeat chest imaging to confirm resolution in 6-8 weeks (3) D-dimer, elevated: Code(s): R79.89 - Other specified abnormal findings of blood chemistry Status: Acute Assessment and Plan: Patient is on room air and is not hypoxic. Patient denies any recent travel. Unable to have CT with contrast secondary to patient's kidney function. Will have V/Q scan as well as venous Dopplers performed. Patient will be continued on full-dose Lovenox until these tests can be performed. 03/02: High probability of PE noted on V/Q scan, Dopplers negative, cont xarelto, dc lovenox 03/03: elevated d-dimer + abnormal VQ, a/c with xarelto for at least 6 months, consider outpatient hypercoag workup (4) CKD (chronic kidney disease), stage III: Code(s): N18.30 - Chronic kidney disease, stage 3 unspecified Status: Acute Assessment and Plan: Patient's kidney function is mildly elevated above baseline. Patient's baseline creatinine is 1.1-1.2. Today's creatinine is 1.8. Will gently hydrate patient continue to monitor. 03/02: Creatinine down to 1.3 today, was 1.8 yesterday baseline appears to be between 1.1-1.3 03/03: labs pending Plan Comorbidities: 1. Hypertension not on any medications at home 2. Hypothyroidism 3. Chronic fatigue syndrome 4. Gout 5. Former smoker smoked 35 years 2.5 packs per day COVID-19 88 6. Sleep apnea DVT prophylaxis on Lovenox Code status full code Subjective Date/time seen: 03/03/22 07:47 Interval history: No overnight events noted. No chest pain or shortness of breath. No nausea, vomiting or diarrhea. No fevers or chills. Review of Systems Review of Systems: All systems reviewed & are unremarkable except as noted in HPI and below Exam Narrative: General: No acute distress, alert and oriented per baseline HEENT: Atraumatic, normocephalic, mucous membranes moist CV: Regular rate and rhythm, S1, S2 Lungs: Clear to auscultation bilaterally, no rales or crackles noted, no wheezes, good air entry Abdomen: Soft, nontender, nondistended Extremities: Normal to inspection Skin: No rashes noted, no lesions or wounds seen Psych: Euthymic, normal affect Objective Data Vital Signs Vital Signs: Vital Signs - 24 hr 03/02/22 10:06 03/02/22 10:09 03/02/22 08:00 Temperature Pulse Rate 74 83 Respiratory Rate 12 12 Blood Pressure Pulse Oximetry 95 Oxygen Delivery Nasal Cannula Oxygen Flow Rate 1 03/02/22 12:05 03/02/22 08:04 03/02/22 14:34 Temperature Pulse Rate 70 93 81 Respiratory Rate 14 Blood Pressure Pulse Oximetry Oxygen Delivery Oxygen Flow Rate 03/02/22 14:39 03/02/22 14:00 03/02/22 16:04 Temperature 98.2 F Pulse Rate 80 79 72 Respiratory Rate 12 18 Blood Pressure 158/56 H Pulse Oximetry 100 Oxygen Delivery Oxygen Flow Rate 03/02/22 20:37 03/02/22 20:00 03/03/22 00:00 Temperature 97.6 F Pulse Rate 72 75 83 Respiratory Rate 18 Blood Pressure 152/55 H Pulse Oximetry 97 Ox
[2022-03-03 07:56] LABS: Hematocrit 31.2 % (37.0-47.0); Hemoglobin 10.1 g/dL (12.0-15.0); Mean Corpuscular HGB Conc 32.4 g/dl (32-36); Mean Corpuscular Hemoglobin 25.4 pg (26-34); Mean Corpuscular Volume 78.4 fl (80-100); Mean Platelet Volume 11.1 fl (7.4-10.4); Platelet Count Result 275 k/mm3 (150-375); Red Blood Count 3.98 M/mm3 (4.2-5.4); Red Cell Distribution Width 16.4 % (11.5-14.5); White Blood Count 10.5 K/mm3 (4.5-10.0)
[2022-03-03 08:03] LABS: Alanine Aminotransferase 11 U/L (6-35); Albumin Level 2.2 g/dL (3.5-5.1); Alkaline Phosphatase 96 U/L (38-126); Anion Gap 4 mmol/L (8-16); Aspartate Amino Transferase 20 U/L (14-36); Bilirubin,Total 0.2 mg/dL (0.2-1.3); Blood Urea Nitrogen 18 mg/dL (7-17); Calcium 8.1 mg/dL (8.4-10.2); Carbon Dioxide 22 mmol/L (22-30); Chloride 111 mmol/L (98-107); Estimated CRCL calculation 30 ml/min; Estimated Glomerular Filt Rate 43; Glucose 97 mg/dL (65-110); Potassium 3.8 mmol/L (3.4-5.0); Sodium 137 mmol/L (137-145)
[2022-03-03] MEDS: ursodioL 300 MG CAPSULE 600 MG PO ×2 (08:12→17:41)
[2022-03-03] MEDS: allopurinoL 100 MG TABLET PO (08:12)
[2022-03-03] MEDS: PANTOPRAZOLE 40 MG TABLET PO ×2 (08:12→17:41)
[2022-03-03] MEDS: MAGNESIUM OXIDE 400 MG TABLET PO (08:12)
[2022-03-03 08:27] LABS: Band Neutrophils Percent 3 % (0-6); Eosinophils Absolute Manual 0.42 K/mm3 (0.02-0.5); Eosinophils Percent Manual 4 % (0-4); Lymphocytes Absolute Manual 1.57 K/mm3 (1.1-4.5); Monocytes Absolute Manual 0.52 K/mm3 (0.1-0.90); Monocytes Percent Manual 5 % (3-9); Neutrophils Absolute Manual 7.98 K/mm3 (1.7-7.2); Neutrophils Percent Manual 73 % (46-73); Total Cells Counted 100
[2022-03-03 08:28] LABS: Anisocytosis 1+ (NORMAL); Hypochromasia 1+ (NORMAL); Platelet Estimate Adequate (Adequate)
[2022-03-03 09:06] LABS: Procalcitonin 0.4 ng/mL
--- NOTE | 2022-03-03 09:56 | PM.PNCARD ---
Progress Note: A&P Assessment and Plan (1) Atrial fibrillation with RVR: Code(s): I48.91 - Unspecified atrial fibrillation Status: Acute Assessment and Plan: Asymptomatic paroxysmal atrial fibrillation in this 81-year-old lady hospitalized with left upper lobe pneumonia. She also has autoimmune disorders that are chronic as well as she mentioned in the HPI. She has been anticoagulated and is maintaining sinus rhythm. If she has recurrences of atrial fibrillation we will need to resume some antiarrhythmic therapy. We will continue to monitor her on telemetry while she is here in the hospital. Subjective Date/time seen: 03/03/22 09:56 Interval history: Sitting up on the edge of the bed comfortable and in no distress. She is feeling well. Denies any shortness of breath, chest pain. Maintaining sinus rhythm. Review of Systems Constitutional: Constitutional: Reports no additional constitutional complaints Eyes: Eyes: Reports no additional eye complaints ENT: Reports system reviewed and no additional complaints, except as documented Cardiovascular: Cardiovascular: Reports no additional cardiovascular complaints and Reports dyspnea Respiratory: Respiratory: Reports dyspnea Gastrointestinal: Gastrointestinal: Reports no additional gastrointestinal complaints Musculoskeletal: Musculoskeletal: Reports no additional musculoskeletal complaints Integumentary/Breasts: Skin/Breast: Reports system reviewed and no additional complaints, except as docu Neurologic: Reports system reviewed and no additional complaints, except as documented Endocrine: Endocrine: Reports no additional endocrine complaints Hematologic/Lymphatic: Hematologic/Lymphatic: Reports no additional hematologic/lymphatic complaints Allergic/Immunologic: Allergic/Immunologic: Reports no additional allergic/immunologic complaints Exam Const: General: comfortable and no acute distress HENMT: Head: normal to inspection Mouth: Yes moist mucous membranes and Yes dry mucous membranes Eyes: Sclera: sclerae normal Neck: Neck: supple and no JVD Resp: Effort & Inspection: normal respiratory effort Auscultation: crackles on the left and localized Cardio: Rate: regular rate Rhythm: regular rhythm Heart sounds: no murmurs GI: Auscultation: normal bowel sounds Skin: General skin exam: normal color Neuro: General: patient oriented x3 Other: normal cognition Extrem: General: normal to inspection Other: Normal pulses no edema Objective Data Vital Signs Vital Signs: Vital Signs - 24 hr 03/02/22 10:06 03/02/22 10:09 03/02/22 12:05 Temperature Pulse Rate 74 83 70 Respiratory Rate 12 12 Blood Pressure Pulse Oximetry Oxygen Delivery 03/02/22 14:34 03/02/22 14:39 03/02/22 14:00 Temperature 36.8 C Pulse Rate 81 80 79 Respiratory Rate 14 12 18 Blood Pressure 158/56 H Pulse Oximetry 100 Oxygen Delivery 03/02/22 16:04 03/02/22 20:37 03/02/22 20:00 Temperature 36.4 C Pulse Rate 72 72 75 Respiratory Rate 18 Blood Pressure 152/55 H Pulse Oximetry 97 Oxygen Delivery 03/03/22 00:00 03/03/22 02:16 03/02/22 20:13 Temperature Pulse Rate 83 82 74 Respiratory Rate 16 16 Blood Pressure Pulse Oximetry Oxygen Delivery 03/02/22 20:29 03/03/22 02:28 03/02/22 20:12 Temperature Pulse Rate 77 83 Respiratory Rate 16 16 Blood Pressure Pulse Oximetry 93 Oxygen Delivery Room Air 03/03/22 04:00 03/03/22 04:33 Temperature 36.8 C Pulse Rate 72 83 Respiratory Rate 16 Blood Pressure 160/70 H Pulse Oximetry 98 Oxygen Delivery Intake/Output Intake/Output: Intake & Output 02/28/22 03/01/22 03/02/22 03/03/22 23:59 23:59 23:59 23:59 Intake Total 4090 4462 2970 590 Output Total 2250 2050 2050 800 Balance 1840 2412 920 210 Meds/Results Medications: Active Medications Generic Name Dose Route Start Last Admin Trade Name Freq CT
[2022-03-03] MEDS: levoFLOXacin 750 MG TABLET PO (10:16)
[2022-03-03] MEDS: SODIUM CHLORIDE 0.9% IV 1,000 ML 100 ML IV CONT (10:16)
[2022-03-03] MEDS: guaiFENesin/DEXTROMETHORPHAN 10 ML UDC PO (13:23)
[2022-03-03] MEDS: LOPERAMIDE HCL 2 MG CAPSULE PO (13:23)
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
[2022-03-03] MEDS: RIVAROXABAN 15 MG TABLET PO (17:41)
[2022-03-03] MEDS: COLESTIPOL HCL 1 GM TABLET PO (20:18)
[2022-03-03 20:59] LABS: Mycoplasma IgM Antibody Titer 350 U/mL (<770)
[2022-03-04] VITALS (16 sets, daily range): BP systolic 130–179; BP diastolic 68–87; PULSE 68–86; RESP 16–18; TEMP 36.6–36.9; O2SAT 93–97
[2022-03-04] MEDS: guaiFENesin/DEXTROMETHORPHAN 10 ML UDC PO (01:05)
[2022-03-04] MEDS: LEVOTHYROXINE SODIUM 100 MCG TABLET BY MOUTH (06:05)
[2022-03-04 06:19] LABS: Hematocrit 32.2 % (37.0-47.0); Hemoglobin 10.6 g/dL (12.0-15.0); Mean Corpuscular HGB Conc 32.9 g/dl (32-36); Mean Corpuscular Hemoglobin 25.5 pg (26-34); Mean Corpuscular Volume 77.4 fl (80-100); Mean Platelet Volume 10.3 fl (7.4-10.4); Platelet Count Result 318 k/mm3 (150-375); Red Blood Count 4.16 M/mm3 (4.2-5.4); Red Cell Distribution Width 16.2 % (11.5-14.5); White Blood Count 11.1 K/mm3 (4.5-10.0)
[2022-03-04 06:29] LABS: Alanine Aminotransferase 12 U/L (6-35); Albumin Level 2.6 g/dL (3.5-5.1); Alkaline Phosphatase 101 U/L (38-126); Anion Gap 3 mmol/L (8-16); Aspartate Amino Transferase 20 U/L (14-36); Bilirubin,Total 0.3 mg/dL (0.2-1.3); Blood Urea Nitrogen 14 mg/dL (7-17); Calcium 8.6 mg/dL (8.4-10.2); Carbon Dioxide 25 mmol/L (22-30); Chloride 110 mmol/L (98-107); Estimated CRCL calculation 30 ml/min; Estimated Glomerular Filt Rate 43; Glucose 94 mg/dL (65-110); Potassium 4.2 mmol/L (3.4-5.0); Sodium 138 mmol/L (137-145)
[2022-03-04 06:57] LABS: Band Neutrophils Percent 11 % (0-6); Basophils Absolute Manual 0.11 K/mm3 (0.0-0.1); Basophils Percent Manual 1 % (0-1); Eosinophils Absolute Manual 0.33 K/mm3 (0.02-0.5); Eosinophils Percent Manual 3 % (0-4); Lymphocytes Absolute Manual 1.44 K/mm3 (1.1-4.5); Metamyelocytes Percent 4 %; Monocytes Absolute Manual 0.44 K/mm3 (0.1-0.90); Monocytes Percent Manual 4 % (3-9); Neutrophils Absolute Manual 8.32 K/mm3 (1.7-7.2); Neutrophils Percent Manual 64 % (46-73); Platelet Estimate Adequate (Adequate); Total Cells Counted 100
[2022-03-04] MEDS: ALBUTEROL SULFATE NEB 2.5 MG/3 ML INH INHALATION ×3 (07:48→20:05)
[2022-03-04] MEDS: IPRATROPIUM BR 0.02% INH SOLN 0.5 MG/2.5 ML VIAL INHALATION ×3 (07:48→20:05)
[2022-03-04] MEDS: PANTOPRAZOLE 40 MG TABLET PO ×2 (09:35→17:47)
[2022-03-04] MEDS: allopurinoL 100 MG TABLET PO (09:35)
[2022-03-04] MEDS: MAGNESIUM OXIDE 400 MG TABLET PO (09:35)
[2022-03-04] MEDS: ursodioL 300 MG CAPSULE 600 MG PO ×2 (09:35→17:47)
--- NOTE | 2022-03-04 17:14 | PM.IMPN ---
Progress Note: A&P Assessment and Plan (1) Left-sided chest pain: Code(s): R07.9 - Chest pain, unspecified Status: Inactive Assessment and Plan: Troponin x3 are negative. EKG shows no acute changes. Patient's chest discomfort sounds more pleuritic in nature since it is worse with coughing. 03/02: asymptomatic, cardio s/o (2) Pneumonia: Code(s): J18.9 - Pneumonia, unspecified organism Status: Acute Assessment and Plan: Patient received azithromycin as well as Rocephin in the emergency room. Will continue with current regimen and monitor patient's laboratories. Will have urine for Legionella and strep pneumoniae performed. Will also place patient on nebulizer treatments every 6 hours routinely. 03/02: cont abx 03/03: 1/2 bld cx + s.pneumo, repeat bld cx pending today, vanc d/c, start levaquin 750 mg Q48h to complete 14 day course after blood cultures negative, will also need repeat chest imaging to confirm resolution in 6-8 weeks 03/04: Repeat blood cultures negative, Link Castellon for coughing fits (3) D-dimer, elevated: Code(s): R79.89 - Other specified abnormal findings of blood chemistry Status: Acute Assessment and Plan: Patient is on room air and is not hypoxic. Patient denies any recent travel. Unable to have CT with contrast secondary to patient's kidney function. Will have V/Q scan as well as venous Dopplers performed. Patient will be continued on full-dose Lovenox until these tests can be performed. 03/02: High probability of PE noted on V/Q scan, Dopplers negative, cont xarelto, dc lovenox 03/03: Elevated d-dimer + abnormal VQ, a/c with xarelto for at least 6 months, consider outpatient hypercoag workup 03/04: Pulmonology consult planning to look into possible CTA to confirm PE or not, continue Xarelto for now (4) CKD (chronic kidney disease), stage III: Code(s): N18.30 - Chronic kidney disease, stage 3 unspecified Status: Acute Assessment and Plan: Patient's kidney function is mildly elevated above baseline. Patient's baseline creatinine is 1.1-1.2. Today's creatinine is 1.8. Will gently hydrate patient continue to monitor. 03/02: Creatinine down to 1.3 today, was 1.8 yesterday baseline appears to be between 1.1-1.3 03/03: Creatinine 1.2, at baseline 03/04: Creatinine 1.2 today, unchanged (5) Foot pain: Code(s): M79.673 - Pain in unspecified foot Status: Acute Assessment and Plan: Unsure of etiology of the patient's foot pain, her description sounds like ?neuropathic pain, no physical manifestations of abnormalities, no erythema or rashes seen, will give a dose of gabapentin tonight before bed assess response and symptoms in the morning (6) Hypertension: Code(s): I10 - Essential (primary) hypertension Status: Acute Assessment and Plan: Asymptomatic, she has never been on blood pressure medications before, blood pressures have been ranging from 140s to 170s systolic over 50s to 80s diastolic, due to her age, I would not treat asymptomatic hypertension in this range, continue to monitor Plan Comorbidities: 1. Hypertension not on any medications at home 2. Hypothyroidism 3. Chronic fatigue syndrome 4. Gout 5. Former smoker smoked 35 years 2.5 packs per day COVID-19 88 6. Sleep apnea DVT prophylaxis on Xarelto, add SCDs Code status full code Subjective Date/time seen: 03/04/22 17:14 Interval history: Patient states she has several complaints today. Overnight, she had some worsening foot pain and swelling. She described as a burning sensation over the top of her forefoot bilaterally. Nothing seems to make it better or worse. There was no rash or erythema noted. He did not get worse with weight-bearing. She states she has never had any symptoms like this before. Patient is also complaining of frequent urination. She states it does not burn or hurt when she urinates but she feels like she has t
[2022-03-04] MEDS: RIVAROXABAN 15 MG TABLET PO (17:47)
[2022-03-04] MEDS: BENZONATATE 100 MG CAPSULE 200 MG PO (17:47)
[2022-03-04] MEDS: COLESTIPOL HCL 1 GM TABLET PO (20:36)
[2022-03-04] MEDS: GABAPENTIN 100 MG CAPSULE PO (20:37)
[2022-03-05] VITALS (14 sets, daily range): BP systolic 156–170; BP diastolic 60–84; PULSE 62–88; RESP 16–18; TEMP 36–36.6; O2SAT 92–98
[2022-03-05] MEDS: ALBUTEROL SULFATE NEB 2.5 MG/3 ML INH INHALATION ×3 (03:20→19:44)
[2022-03-05] MEDS: IPRATROPIUM BR 0.02% INH SOLN 0.5 MG/2.5 ML VIAL INHALATION ×3 (03:21→19:44)
[2022-03-05 05:58] LABS: Hematocrit 31.4 % (37.0-47.0); Hemoglobin 9.9 g/dL (12.0-15.0); Mean Corpuscular HGB Conc 31.5 g/dl (32-36); Mean Corpuscular Hemoglobin 25.3 pg (26-34); Mean Corpuscular Volume 80.1 fl (80-100); Mean Platelet Volume 10.4 fl (7.4-10.4); Platelet Count Result 305 k/mm3 (150-375); Red Blood Count 3.92 M/mm3 (4.2-5.4); Red Cell Distribution Width 16.4 % (11.5-14.5); White Blood Count 8.8 K/mm3 (4.5-10.0)
[2022-03-05 06:15] LABS: Alanine Aminotransferase 10 U/L (6-35); Albumin Level 2.3 g/dL (3.5-5.1); Alkaline Phosphatase 86 U/L (38-126); Anion Gap 5 mmol/L (8-16); Aspartate Amino Transferase 18 U/L (14-36); Bilirubin,Total 0.2 mg/dL (0.2-1.3); Blood Urea Nitrogen 11 mg/dL (7-17); Calcium 8.2 mg/dL (8.4-10.2); Carbon Dioxide 26 mmol/L (22-30); Chloride 107 mmol/L (98-107); Estimated CRCL calculation 32 ml/min; Estimated Glomerular Filt Rate 48; Glucose 97 mg/dL (65-110); Potassium 3.9 mmol/L (3.4-5.0); Sodium 138 mmol/L (137-145)
[2022-03-05 06:55] LABS: Band Neutrophils Percent 2 % (0-6); Eosinophils Absolute Manual 0.52 K/mm3 (0.02-0.5); Eosinophils Percent Manual 6 % (0-4); Monocytes Absolute Manual 0.17 K/mm3 (0.1-0.90); Monocytes Percent Manual 2 % (3-9); Neutrophils Absolute Manual 5.89 K/mm3 (1.7-7.2); Neutrophils Percent Manual 65 % (46-73); Platelet Estimate Adequate (Adequate); Total Cells Counted 100
[2022-03-05] MEDS: LEVOTHYROXINE SODIUM 100 MCG TABLET BY MOUTH (07:47)
[2022-03-05] MEDS: BENZONATATE 100 MG CAPSULE 200 MG PO ×3 (09:08→17:02)
[2022-03-05] MEDS: allopurinoL 100 MG TABLET PO (09:08)
[2022-03-05] MEDS: PANTOPRAZOLE 40 MG TABLET PO ×2 (09:09→17:02)
[2022-03-05] MEDS: MAGNESIUM OXIDE 400 MG TABLET PO (09:09)
[2022-03-05] MEDS: levoFLOXacin 750 MG TABLET PO (09:09)
[2022-03-05] MEDS: ursodioL 300 MG CAPSULE 600 MG PO ×2 (09:09→17:02)
--- NOTE | 2022-03-05 09:13 | PM.IMPN ---
Progress Note: A&P Assessment and Plan (1) Pneumonia: Code(s): J18.9 - Pneumonia, unspecified organism Status: Acute Assessment and Plan: Patient received azithromycin as well as Rocephin in the emergency room. Will continue with current regimen and monitor patient's laboratories. Will have urine for Legionella and strep pneumoniae performed. Will also place patient on nebulizer treatments every 6 hours routinely. 03/02: cont abx 03/03: 1/2 bld cx + s.pneumo, repeat bld cx pending today, vanc d/c, start levaquin 750 mg Q48h to complete 14 day course after blood cultures negative, will also need repeat chest imaging to confirm resolution in 6-8 weeks 03/04: Repeat blood cultures negative, Link Castellon for coughing fits 03/05: cont levaquin for 14 days after neg blood cx on 03/03/22, end date for levquin 750 mg Q48h is March 17, 2022 (2) D-dimer, elevated: Code(s): R79.89 - Other specified abnormal findings of blood chemistry Status: Acute Assessment and Plan: Patient is on room air and is not hypoxic. Patient denies any recent travel. Unable to have CT with contrast secondary to patient's kidney function. Will have V/Q scan as well as venous Dopplers performed. Patient will be continued on full-dose Lovenox until these tests can be performed. 03/02: High probability of PE noted on V/Q scan, Dopplers negative, cont xarelto, dc lovenox 03/03: Elevated d-dimer + abnormal VQ, a/c with xarelto for at least 6 months, consider outpatient hypercoag workup 03/04: Pulmonology consult planning to look into possible CTA to confirm PE or not, continue Xarelto for now 03/05: CTA pending, r/o PE (3) CKD (chronic kidney disease), stage III: Code(s): N18.30 - Chronic kidney disease, stage 3 unspecified Status: Acute Assessment and Plan: Patient's kidney function is mildly elevated above baseline. Patient's baseline creatinine is 1.1-1.2. Today's creatinine is 1.8. Will gently hydrate patient continue to monitor. 03/02: Creatinine down to 1.3 today, was 1.8 yesterday baseline appears to be between 1.1-1.3 03/03: Creatinine 1.2, at baseline 03/04: Creatinine 1.2 today, unchanged 03/05: Creat cont to improve, 1.1 today, consult nephrology for reduced cr clearance and need for contrast study (4) Foot pain: Code(s): M79.673 - Pain in unspecified foot Status: Acute Assessment and Plan: Unsure of etiology of the patient's foot pain, her description sounds like ?neuropathic pain, no physical manifestations of abnormalities, no erythema or rashes seen, will give a dose of gabapentin tonight before bed assess response and symptoms in the morning 03/05: resolved (5) Hypertension: Code(s): I10 - Essential (primary) hypertension Status: Acute Assessment and Plan: Asymptomatic, she has never been on blood pressure medications before, blood pressures have been ranging from 140s to 170s systolic over 50s to 80s diastolic, due to her age, I would not treat asymptomatic hypertension in this range, continue to monitor 03/05: improved Plan Comorbidities: 1. Hypertension not on any medications at home 2. Hypothyroidism 3. Chronic fatigue syndrome 4. Gout 5. Former smoker smoked 35 years 2.5 packs per day COVID-19 88 6. Sleep apnea DVT prophylaxis on Xarelto, add SCDs Code status full code Subjective Date/time seen: 03/05/22 09:13 Interval history: 03/05: Patient states that her foot pain and sensation is unchanged, but is no longer reproducible with palpation. Urinary symptoms are unchanged. Diarrhea remains resolved. Coughing significantly improved on Tessalon Perles. No overnight events noted. No chest pain or shortness of breath. No nausea, vomiting or diarrhea. No fevers or chills. 03/04: Patient states she has several complaints today. Overnight, she had some worsening foot pain and swelling. She described as a burning sensation over the top of her forefoot bila
[2022-03-05 13:10] LABS: Appearance Urine Clear (Clear); Bilirubin Urine Negative (Negative); Blood Urine Negative (Negative); Color Urine Yellow (Yellow); Glucose Urine UA Negative (Negative); Ketones Urine Negative (Negative); Leukocyte Esterase Ur Negative LEU/UL (NEGATIVE); Nitrate Urine Negative (Negative); Protein Urine Negative (Negative); Specific Grav Ur 1.015 (1.001-1.035); Urobilinogen Urine 0.2 mg/dL (<2.0); pH Urine 6.5 (5.0-9.0)
[2022-03-05 13:25] LABS: Add Urine Microscopic? NO
[2022-03-05] MEDS: RIVAROXABAN 15 MG TABLET PO (17:02)
--- NOTE | 2022-03-05 20:34 | PC.NURSE ---
Patient went down for CTA scan. This nurse flushed IV in left upper arm prior to leaving the floor successfully with proper blood return. Marianne from CT called up as patient was in scan and said patients IV had blown due to the pressure from the contrast. Patient arrived back to the floor with infiltration of contrast in upper arm and I removed the IV from her arm. Patient is refusing to have another IV placed at this time.
[2022-03-05] MEDS: COLESTIPOL HCL 1 GM TABLET PO (20:46)
[2022-03-05] MEDS: GABAPENTIN 100 MG CAPSULE PO (20:46)
[2022-03-06] VITALS (11 sets, daily range): BP systolic 153–164; BP diastolic 63–76; PULSE 61–95; RESP 16–18; TEMP 36.1–36.8; O2SAT 93
--- NOTE | 2022-03-06 02:04 | PCRCNOTE ---
PT REFUSING 0200 UPD ON 03/06. PT STATED SHE DID NOT WANT TO BE WOKEN UP. RT INFORMED PT TO CALL FOR TREATMENT IF ONE WAS NEEDED.
[2022-03-06 06:01] LABS: Basophils Absolute Auto 0.1 K/mm3 (0.0-0.1); Basophils Percent Auto 0.8 % (0.2-1.2); Eosinophils Absolute Auto 0.2 K/mm3 (0-0.3); Eosinophils Percent Auto 2.2 % (0-4.4); Hematocrit 34.1 % (37.0-47.0); Hemoglobin 10.9 g/dL (12.0-15.0); Immature Granulocyte Absolute 0.58 K/mm3 (0.00-0.031); Immature Granulocyte Percent A 6.4 % (0-0.5); Lymphocytes Absolute Auto 1.75 K/mm3 (0.9-3.2); Lymphocytes Percent Auto 19.3 % (18.3-44.2); Mean Corpuscular Hemoglobin 25.5 pg (26-34); Mean Corpuscular Volume 79.9 fl (80-100); Mean Platelet Volume 9.9 fl (7.4-10.4); Monocytes Absolute Auto 0.8 K/mm3 (0.1-0.6); Monocytes Percent Auto 8.6 % (2.6-8.5); Neutrophils Absolute Auto 5.7 K/mm3 (1.3-6.7); Neutrophils Percent Auto 62.7 % (45.5-73.1); Platelet Count Result 367 k/mm3 (150-375); Red Blood Count 4.27 M/mm3 (4.2-5.4); Red Cell Distribution Width 16.6 % (11.5-14.5); White Blood Count 9.1 K/mm3 (4.5-10.0)
[2022-03-06] MEDS: LEVOTHYROXINE SODIUM 100 MCG TABLET BY MOUTH (06:09)
[2022-03-06 06:10] LABS: Alanine Aminotransferase 12 U/L (6-35); Albumin Level 2.7 g/dL (3.5-5.1); Alkaline Phosphatase 94 U/L (38-126); Anion Gap 3 mmol/L (8-16); Aspartate Amino Transferase 20 U/L (14-36); Bilirubin,Total 0.2 mg/dL (0.2-1.3); Blood Urea Nitrogen 15 mg/dL (7-17); Calcium 8.4 mg/dL (8.4-10.2); Carbon Dioxide 29 mmol/L (22-30); Chloride 104 mmol/L (98-107); Estimated CRCL calculation 29 ml/min; Estimated Glomerular Filt Rate 43; Glucose 101 mg/dL (65-110); Potassium 4.3 mmol/L (3.4-5.0); Sodium 136 mmol/L (137-145)
[2022-03-06] MEDS: IPRATROPIUM BR 0.02% INH SOLN 0.5 MG/2.5 ML VIAL INHALATION ×2 (07:21→14:11)
[2022-03-06] MEDS: ALBUTEROL SULFATE NEB 2.5 MG/3 ML INH INHALATION ×2 (07:21→14:11)
[2022-03-06] MEDS: ursodioL 300 MG CAPSULE 600 MG PO ×2 (08:45→17:35)
[2022-03-06] MEDS: BENZONATATE 100 MG CAPSULE 200 MG PO ×3 (08:46→17:35)
[2022-03-06] MEDS: PANTOPRAZOLE 40 MG TABLET PO ×2 (08:46→17:35)
[2022-03-06] MEDS: allopurinoL 100 MG TABLET PO (08:46)
[2022-03-06] MEDS: MAGNESIUM OXIDE 400 MG TABLET PO (08:46)
[2022-03-06] MEDS: RIVAROXABAN 15 MG TABLET PO (17:36)
--- NOTE | 2022-03-12 11:35 | PM.DS ---
DS: Admitting Diagnosis Discharge Date 03/06/22 DS: Discharge Diagnosis Discharge Diagnosis (1) Pneumonia: Code(s): J18.9 - Pneumonia, unspecified organism Status: Acute (2) D-dimer, elevated: Code(s): R79.89 - Other specified abnormal findings of blood chemistry Status: Acute (3) CKD (chronic kidney disease), stage III: Code(s): N18.30 - Chronic kidney disease, stage 3 unspecified Status: Acute (4) Foot pain: Code(s): M79.673 - Pain in unspecified foot Status: Acute (5) Hypertension: Code(s): I10 - Essential (primary) hypertension Status: Acute DS: Summary Time Spent with Patient Time attestation: Total time spent providing and/or coordinating discharge services: Discharge Plan Discharge Attending physician on discharge: Alan Campos Consulting providers: Sara Hammer ; Juvenal Hilario ; Alan Chou ; Joaquín Aguilar ; Cliff Peterson ; Escobar Howell ; Yi Gay ; India Browning ; Jameson Sifuentes Discharging Clinician: Alan Campos Patient Disposition: Home, Self-Care Activity: no preference Diet: as tolerated Patient Instructions: Antibiotic Form, Rivaroxaban (By mouth), Hypothyroidism (DC), COPD (Chronic Obstructive Pulmonary Disease) (DC), Community Acquired Pneumonia (DC), Safe Use of Anticoagulants (GEN) Stand Alone Forms: General Discharge Information Follow-up/Referrals: Shubham Sesay DO [Primary Care Provider] - Discharge Medications: Continued ursodiol 300 mg capsule 600 mg PO BID calcium carbonate [Calcium 600] 600 mg calcium (1,500 mg) tablet 600 mg PO BID Calcium With Vitamin D3 See Rx Instructions .ROUTE .COMPLEX Rx Instructions: calcium 600 mg + vitamin D3 20 mcg BID clobetasol See Rx Instructions .ROUTE .COMPLEX Rx Instructions: four times a day during a flare up magnesium oxide 500 mg 500 mg PO DAILY nystatin 5 mg See Rx Instructions .ROUTE .COMPLEX Rx Instructions: 5 mg orally QID PRN during a flare up triamcinolone acetonide See Rx Instructions .ROUTE .COMPLEX Rx Instructions: on vaginal opening BID allopurinol 100 mg tablet 100 mg PO DAILY levothyroxine 100 mcg tablet 100 mcg DAILY omeprazole 20 mg capsule,delayed release(DR/EC) 20 mg PO BID colestipol 1 gram tablet 1 gm PO HS No Action Xarelto 15 mg tablet 15 mg PO DAILY@1700 Qty: 30 5RF levofloxacin 750 mg tablet 750 mg PO Q48H 8 Days Qty: 4 0RF Date of admission: 02/28/22 18:00 Primary Care Provider: Shubham Sesay Admitting Provider: Robin Saleh Attending physician on admission: Lidia Zapata Condition: Stable Quality VTE Prophylaxis VTE prophylaxis: mechanical ordered and pharmacologic ordered
--- NOTE | 2022-03-12 12:29 | PM.DS ---
DS: Admitting Diagnosis Discharge Date 03/06/22 Admitting Diagnosis Chest pain and shortness of breath DS: Discharge Diagnosis Discharge Diagnosis Plan (1) Pneumonia: ?Code(s): J18.9 - Pneumonia, unspecified organism ?Status:?Acute ?Assessment and Plan: Patient received azithromycin as well as Rocephin in the emergency room.? Will continue with current regimen and monitor patient's laboratories.? Will have urine for Legionella and strep pneumoniae performed.? Will also place patient on nebulizer treatments every 6 hours routinely. 03/02: cont abx 03/03: 1/2 bld cx + s.pneumo, repeat bld cx pending today, vanc d/c, start levaquin 750 mg Q48h to complete 14 day course after blood cultures negative, will also need repeat chest imaging to confirm resolution in 6-8 weeks 03/04:? Repeat blood cultures negative, Tessalon Perles for coughing fits 03/05: cont levaquin for 14 days after neg blood cx on 03/03/22, end date for levquin 750 mg Q48h is March 17, 2022 (2) D-dimer, elevated: ?Code(s): R79.89 - Other specified abnormal findings of blood chemistry ?Status:?Acute ?Assessment and Plan: Patient is on room air and is not hypoxic.? Patient denies any recent travel.? Unable to have CT with contrast secondary to patient's kidney function.? Will have V/Q scan as well as venous Dopplers performed.? Patient will be continued on full-dose Lovenox until these tests can be performed. 03/02:? High probability of PE noted on V/Q scan, Dopplers negative, cont xarelto, dc lovenox 03/03:? Elevated d-dimer + abnormal VQ, a/c with xarelto for at least 6 months, consider outpatient hypercoag workup 03/04:? Pulmonology consult planning to look into possible CTA to confirm PE or not, continue Xarelto for now 03/05:? CTA pending, r/o PE (3) CKD (chronic kidney disease), stage III: ?Code(s): N18.30 - Chronic kidney disease, stage 3 unspecified ?Status:?Acute ?Assessment and Plan: Patient's kidney function is mildly elevated above baseline.? Patient's baseline creatinine is 1.1-1.2.? Today's creatinine is 1.8.? Will gently hydrate patient continue to monitor. 03/02:? Creatinine down to 1.3 today, was 1.8 yesterday baseline appears to be between 1.1-1.3 03/03:? Creatinine 1.2, at baseline 03/04:? Creatinine 1.2 today, unchanged 03/05:? Creat cont to improve, 1.1 today, consult nephrology for reduced cr clearance and need for contrast study (4) Foot pain: ?Code(s): M79.673 - Pain in unspecified foot ?Status:?Acute ?Assessment and Plan: Unsure of etiology of the patient's foot pain, her description sounds like ?neuropathic pain, no physical manifestations of abnormalities, no erythema or rashes seen, will give a dose of gabapentin tonight before bed assess response and symptoms in the morning 03/05: resolved (5) Hypertension: ?Code(s): I10 - Essential (primary) hypertension ?Status:?Acute ?Assessment and Plan: Asymptomatic, she has never been on blood pressure medications before, blood pressures have been ranging from 140s to 170s systolic over 50s to 80s diastolic, due to her age, I would not treat asymptomatic hypertension in this range, continue to monitor 03/05: improved Plan Comorbidities: 1. Hypertension not on any medications at home 2. Hypothyroidism 3. Chronic fatigue syndrome 4. Gout 5. Former smoker smoked 35 years 2.5 packs per day COVID-19 88 6. Sleep apnea DVT prophylaxis on Xarelto, add SCDs Code status full code DS: Summary Hospital Course Hospital Course: See above Time Spent with Patient Time attestation: Total time spent providing and/or coordinating discharge services: Discharge Plan Discharge Attending physician on discharge: Alan Campos Consulting providers: Sara Hammer ; Juvenal Hilario ; Alan Chou ; Joaquín Aguilar ; Cliff Peterson ; Escobar Howell ; Yi Gay ; India Browning ; Jameson Sifuentes Discharging Clinician: Alan Campos
== END 2022-03-06 18:15 | disposition home or self-care (01) | DRG 193 ==
LOC: ANHED 17:54 → ANHIMU 19:28 → ANH3MED 03-02 08:59 → ANHIMU 03-08 08:52
PROVIDERS: Emergency Medicine; Internal Medicine; Nurse Practitioner Adult Health; Admitting Provider Internal Medicine; Emergency Provider Emergency Medicine; PCP Internal Medicine; Visit Provider Student in an Organized Health Care Education/Training Program
DX: J18.9 Pneumonia, unspecified organism; I26.99 Other pulmonary embolism without acute cor pulmonale; N17.9 Acute kidney failure, unspecified; Z20.822 Contact with and (suspected) exposure to COVID-19; R05.3 Chronic cough; R53.82 Chronic fatigue, unspecified; E03.9 Hypothyroidism, unspecified; E83.42 Hypomagnesemia; G47.30 Sleep apnea, unspecified; I12.9 Hypertensive chronic kidney disease with stage 1 through stage 4 chronic kidney disease, or unspecified chronic kidney disease; I48.0 Paroxysmal atrial fibrillation; J44.9 Chronic obstructive pulmonary disease, unspecified; K74.60 Unspecified cirrhosis of liver; L43.9 Lichen planus, unspecified; M79.673 Pain in unspecified foot; M10.9 Gout, unspecified; N18.30 Chronic kidney disease, stage 3 unspecified; R79.89 Other specified abnormal findings of blood chemistry; Z90.710 Acquired absence of both cervix and uterus; Z90.49 Acquired absence of other specified parts of digestive tract; Z96.651 Presence of right artificial knee joint; Z87.891 Personal history of nicotine dependence
CPT/HCPCS: 36415; 36600; 71045; 71046; 71250; 78580; 80048; 80053; 80202; 81003; 82565; 82805; 83605; 83690; 83735; 83880; 84145; 84484; 85025; 85380; 85610; 85730; 86140; 86738; 87040; 87147; 87186; 87449; 87899; 93005; 93306; 93970; 94640; 96365; 96366; 96367; 96372; 96375; 97110; 97162; 97165; 97530; 97535; 99285; A9270; A9540; C9803; G0378; J0282; J0456; J0696; J1650; J1940; J3370; J3475; J7030; U0003; U0005

== ENCOUNTER 2022-03-15 10:26 | Outpatient (CLI) | payer MEDICARE, SELFPAY ==
--- NOTE | ~2022-03-15 | XR_ITS ---
EXAMINATION: XR chest 2V 03/15/2022 10:45 INDICATION: Follow-up pneumonia PROCEDURE: 2 view chest COMPARISON: Comparison to multiple prior studies sequentially, with oldest reviewed study dated 02/18. FINDINGS: The lungs are clear. The cardiomediastinal silhouette is within normal limits. There are no pleural effusions. There is no pneumothorax suspected. There is calcified left hilar lymph nodes and lung nodules, consistent with chronic granulomatous disease. The lungs are hyperinflated which i s consistent with, but not diagnostic of chronic obstructive pulmonary disease. IMPRESSION: 1: NO ACUTE CARDIOPULMONARY DISEASE. Reviewed, dictated and finalized at location A.
== END 2022-03-15 10:27 | disposition home or self-care (01) ==
PROVIDERS: PCP Internal Medicine; Visit Provider Nurse Practitioner
DX: J18.9 Pneumonia, unspecified organism (principal)
CPT/HCPCS: 71046

== ENCOUNTER 2022-05-09 13:51 | Outpatient (CLI) | payer MEDICARE, SELFPAY ==
--- NOTE | ~2022-05-09 | MM_ITS ---
EXAMINATION: MM diagnostic elicia RT w mariano HISTORY: Microcalcifications TECHNIQUE: ML, MLO and CC 3-D tomosynthesis images of the right breast were performed and synthetic 2 -D images were generated. ML, MLO and CC magnification views. CAD analysis was submitted and interpre juan carlos. COMPARISON: 10/28/2021 diagnostic right mammogram 02/11/2021 diagnostic right mammogram ilateral screening mammogram BREAST PARENCHYMAL COMPOSITION: The breasts are almost entirely fatty. FINDINGS: There are scattered benign microcalcifications. No malignant features are identified at any of the sites of calcification. No suspicious mass or architectural distortion, malignant calcification, skin thickening or retractio n or significant new or developing density is detected. IMPRESSION: 1. Benign calcifications 2. Routine mammographic screening is recommended BI-RADS Category 2: Benign finding(s). Reviewed, dictated and finalized at location A.
== END 2022-05-09 13:52 | disposition home or self-care (01) ==
PROVIDERS: PCP Internal Medicine; Visit Provider Nurse Practitioner Obstetrics & Gynecology
DX: R92.8 Other abnormal and inconclusive findings on diagnostic imaging of breast (principal)
CPT/HCPCS: 77061; 77065; G0279

== ENCOUNTER 2022-07-13 08:43 | Outpatient (CLI) | payer MEDICARE, SELFPAY ==
--- NOTE | ~2022-07-13 | MM_ITS ---
EXAMINATION: MM screening elicia BI w mariano HISTORY: Screening TECHNIQUE: Craniocaudal and mediolateral oblique 3-D tomosynthesis images were obtained and synthetic 2-D images were generated. CAD analysis was submitted and interpreted. COMPARISON: Comparison to multiple prior studies sequentially, with oldest reviewed study dated 03/07. BREAST PARENCHYMAL COMPOSITION: The breasts are almost entirely fatty. FINDINGS: Stable benign-appearing bilateral breast calcifications. There is no evidence of suspicious mass, calcification, or architectural distortion to suggest malignancy in either breast. There has b een no suspicious interval change. IMPRESSION: 1. No mammographic evidence of malignancy. 2. Recommend routine screening mammography in one year. BI-RADS Category 2: Benign finding(s). Reviewed, dictated and finalized at location A. 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
== END 2022-07-13 08:44 | disposition home or self-care (01) ==
LOC: ANHIMG 08:45
PROVIDERS: PCP Internal Medicine; Visit Provider Nurse Practitioner Obstetrics & Gynecology
DX: Z12.31 Encounter for screening mammogram for malignant neoplasm of breast (principal)
CPT/HCPCS: 77063; 77067

== ENCOUNTER 2022-11-09 08:08 | Outpatient (CLI) | payer MEDICARE, SELFPAY ==
--- NOTE | ~2022-11-09 | XR_ITS ---
EXAMINATION: XR chest 2V DATE: 11/09/2022 08:26 INDICATION: Soreness breath and dry cough TECHNIQUE: PA and lateral views of the chest were obtained. COMPARISON: Chest radiograph dated 03/15/2022 FINDINGS: Calcified nodule at the left costophrenic angle and calcified left hilar and mediastinal lymph nodes consistent with old granulomatous disease. The cardiomediastinal silhouette is normal. Post cystectom y clips in right upper quadrant. Moderate thoracic and lumbar spondylosis. IMPRESSION: 1. No acute cardiopulmonary disease. Reviewed, dictated and finalized at location A.
== END 2022-11-09 08:09 | disposition home or self-care (01) ==
PROVIDERS: PCP Internal Medicine; Visit Provider Nurse Practitioner
DX: R06.02 Shortness of breath (principal); R05.9 Cough, unspecified
CPT/HCPCS: 71046

== ENCOUNTER 2023-03-30 14:46 | Emergency (ER) | payer MEDICARE, SELFPAY ==
--- NOTE | ~2023-03-30 | XR_ITS ---
EXAMINATION: XR foot RT min 3V DATE: 03/30/2023 15:15 INDICATION: Right foot injury. Fall. TECHNIQUE: 4 views of right foot were obtained. COMPARISON: None. FINDINGS: There is a nondisplaced transverse fracture of base of fifth metatarsal. There is mild oste oarthritis of first metatarsophalangeal joint and some of the interphalangeal joints. There are enthe sophytes at the posterior and plantar aspects of calcaneal tuberosity. IMPRESSION: 1. Nondisplaced transverse fracture of base of fifth metatarsal. Reviewed, dictated and finalized at location L.
[2023-03-30 15:01] VITALS: BP 136/59; PULSE 81; RESP 12; TEMP 36.8; O2SAT 100
[2023-03-30 15:02] VITALS: BP 136/59; PULSE 81; RESP 12; TEMP 36.8; O2SAT 100
--- NOTE | 2023-03-30 15:38 | ED.LOWEXIN ---
HPI - Extremity Injury (Lower) General Chief Complaint: Extremity Injury, Lower Stated Complaint: Fell, injured right foot and ankle Time Seen by Provider: 03/30/23 15:38 Source: patient Mode of arrival: ambulatory Limitations: no limitations History of Present Illness HPI Narrative: 82 y/o female presented for c/o right foot pain and swelling after fall at home today. States she tripped when her shoes 'didn't move but she did' while walking. Pain is the lateral aspect of the right foot and radiates up the ankle. Pain is worse with ambulating or moving the foot. States she fell landing on the right side. Denies hip pain, neck or back pain. Denies hitting her head or LOC. Patient went to lunch as planned after the fall [employer], and has not taken anything for pain. Has used cane and walker but reports difficulty ambulating and bearing due to the pain. Related Data Home Medications Medication Instructions Recorded Confirmed colestipol 1 gram tablet 1 gm PO HS 08/07/19 03/30/23 ursodiol 300 mg capsule 600 mg PO BID 07/17/20 03/30/23 Calcium With Vitamin D3 See Rx Instructions .Route .COMPLEX 02/27/22 03/30/23 clobetasol See Rx Instructions .Route .COMPLEX 02/27/22 03/30/23 magnesium oxide 500 mg PO DAILY 02/27/22 03/30/23 nystatin See Rx Instructions .Route .COMPLEX 02/27/22 03/30/23 triamcinolone acetonide See Rx Instructions .Route .COMPLEX 02/27/22 03/30/23 Allergies Allergy/AdvReac Type Severity Reaction Status Date / Time shrimp Allergy Mild nausea, Verified 03/30/23 15:01 vomiting prednisone Allergy Mild Dizziness Uncoded 03/30/23 15:01 Tramadol Allergy Mild Dizziness Uncoded 03/30/23 15:01 SHELLFISH Allergy Unknown N&V Uncoded 03/30/23 15:01 Review of Systems Review of Systems: CONSTITUTIONAL: Denies body aches, fever, chills EYES: Denies visual changes ENT: Denies rhinorrhea, congestion CARDIOVASCULAR: Denies chest pain, palpitations, or edema. RESPIRATORY: Denies cough or dyspnea. GASTROINTESTINAL: Denies abdominal pain, nausea, vomiting, or diarrhea. SKIN: Denies rash, itching, or wounds. MUSCULOSKELETAL: Reports right foot pain, swelling Denies back pain, or myalgia. NEUROLOGIC: Denies headache, numbness, tingling, or weakness. PSYCH: Denies depression or anxiety. All systems reviewed & are unremarkable except as noted in HPI and below PMFSH Past Medical History Medical History Adult hypothyroidism Arthritis of knee, left Arthritis of knee, right Atrial fibrillation with RVR Benign essential hypertension Carpal tunnel syndrome Chronic diarrhea CKD (chronic kidney disease), stage III Cramp of toe Fatigue Hiatal hernia Hypertrophic lichen planus of vulva Leg cramping Numbness of toes Personal history of gout Plantar fasciitis Primary biliary cholangitis Pulmonary embolism Sleep apnea, unspecified Vertigo Surgical History Surgical History H/O: hysterectomy History of bladder surgery History of bladder suspension procedure History of bowel resection History of carpal tunnel surgery History of cataract surgery History of cholecystectomy History of colon resection History of cystoscopy History of total right knee replacement Family History Family History Sibling Family history of rheumatoid arthritis Family history of heart disease in male family member before age 55 Family history of obesity Hypertension Family history of diabetes mellitus in first degree relative Mother Family history of osteoarthritis Family history of congestive heart failure Hypertension Family history of arthritis Father Cerebrovascular accident Family history of diabetes mellitus in first degree relative Other Diabetes mellitus Family history of cardiovascular disease Social History Social History (Reviewed 03/30/23 @ 15:57 by Yudelka
== END 2023-03-30 16:27 | disposition home or self-care (01) ==
PROVIDERS: Emergency Provider Nurse Practitioner Family; PCP Family Medicine
DX: S92.354A Nondisplaced fracture of fifth metatarsal bone, right foot, initial encounter for closed fracture (principal); W01.0XXA Fall on same level from slipping, tripping and stumbling without subsequent striking against object, initial encounter; E03.9 Hypothyroidism, unspecified; M17.0 Bilateral primary osteoarthritis of knee; I48.91 Unspecified atrial fibrillation; I12.9 Hypertensive chronic kidney disease with stage 1 through stage 4 chronic kidney disease, or unspecified chronic kidney disease; N18.30 Chronic kidney disease, stage 3 unspecified; M10.9 Gout, unspecified; Z86.711 Personal history of pulmonary embolism; Z96.651 Presence of right artificial knee joint
CPT/HCPCS: 73630; 99213; G0463

== ENCOUNTER 2023-05-03 09:35 | Outpatient (CLI) | payer MEDICARE, SELFPAY ==
--- NOTE | ~2023-05-03 | DEXA_ITS ---
Bone Density Report Name: RIKKI ALFREDO Age: 82 Sex: Female Ethnicity: White Date of : 1940 Indication: osteopenia; height loss; prior fracture; asthma or emphysema; hysterectomy; postmenopausal Referring Provider: MICHELLE FIGUEROA Study: Bone densitometry was performed. Exam Date: May 03, 2023 Accession number: [id number] Bone Density: Region BMD T-score Z-score Classification AP Spine(L1-L4) 0.944 -0.9 1.9 Normal Femoral Neck (Left) 0.636 -1.9 0.6 Osteopenia Total Hip (Left) 0.756 -1.5 0.7 Osteopenia Femoral Neck (Right) 0.619 -2.1 0.4 Osteopenia Total Hip (Right) 0.688 -2.1 0.2 Osteopenia Total Hip Mean 0.722 -1.8 0.5 Osteopenia World Health Organization criteria for BMD impression classify patients as: Normal (T-score at or above -1.0), Osteopenia (T-score between -1.0 and -2.5), or Osteoporosis (T-score at or below -2.5). 10-year Fracture Risk(1): Major Osteoporotic Fracture 23% Hip Fracture 6.6% Reported Risk Factors: [place] (), Neck BMD=0.619, BMI=27.0, previous fracture (1) FRAX(R) Version 3.08. Fracture probability calculated for an untreated patient. Fracture probability may be lower if the patient has received treatment. Previous Exams: Region Exam Age BMD T-score BMD Change BMD Change Date g/cm2 vs Baseline vs Previous AP Spine (L1-L4) 05/03/2023 82 0.944 -0.9 -0.036 (-3.6%) -0.036 (-3.6%) 12/29/2020 80 0.980 -0.6 Total Hip(Left) 05/03/2023 82 0.756 -1.5 -0.008 (-1.0%) -0.008 (-1.0%) 12/29/2020 80 0.764 -1.5 Total Hip(Right) 05/03/2023 82 0.688 -2.1 -0.036 (-5.0%) -0.036 (-5.0%) 12/29/2020 80 0.724 -1.8 *Denotes significance at 95% confidence level, LSC for AP Spine = 0.022 g/cm2, LSC for Total Hip = 0.027 g/cm2 Clinical Information Provided by Patient: Has had a low trauma fracture Has used the following medications: Vitamin D, Calcium Has the following medical conditions: Asthma or Emphysema, Hysterectomy Patient maximum height was 64 Menopause Age: 49 No regular weight bearing exercise Does not regularly consume dairy products Onset of menses at age 13 Number of children 2 Impression: The patient has low bone mass, based on the Right Total Hip T-score. The patient has an estimated ten-year risk of hip fracture of 6.6% and an estimated ten-year risk of major fracture of 23%, based on the WHO FRAX algorithm. The patient has risk factors, including: previo
== END 2023-05-03 09:36 | disposition home or self-care (01) ==
LOC: ANHIMG 09:36
PROVIDERS: PCP Family Medicine; Visit Provider Nurse Practitioner Family
DX: Z13.820 Encounter for screening for osteoporosis (principal); M85.852 Other specified disorders of bone density and structure, left thigh; M85.851 Other specified disorders of bone density and structure, right thigh
CPT/HCPCS: 77080

== ENCOUNTER 2023-05-11 08:56 | Outpatient (CLI) | payer MEDICARE, SELFPAY ==
--- NOTE | 2023-05-11 13:35 | P.PCNPFT_ITS ---
PFT Procedure Performed PFT Procedure Performed Spirometry with Pre/Post Bronchodilator Plethysmography (Lung Vol) Diffusing Cap (DLCO) Flow Vol Loop PFT Interpretation Lung volumes were measured with the body plethysmography method. The across the board elevated lung volumes are most likely related to to patient's inability to cooperate during the plethysmography measurements as noticed by the pharmacy technician instructor. Spirometry showed diminished expiratory flow rates and borderline low FEV1 to FVC ratio 65% suggestive of obstructive airway disease. Following administration of a bronchodilator there was no significant increase in the expiratory flow rates. Lung diffusion capacity is mildly reduced at 61% predicted. In comparison to previous study in 2017, there is now an airway obstructive airway defect as shown by decrement of each FVC and FEV1 by approximately 0.5 L and decreased FEV1 to FVC ratio from 79% to 65%. Lung diffusion capacity is similarly diminished from previous value of 83% down to 61%.. The flow-volume loop is consistent with obstructive airway disease. Impression: Probable mild obstructive airway disease with no response to bronchodilators, new since previous study of 2017. Mildly reduced lung diffusion capacity.
== END 2023-05-11 08:57 | disposition home or self-care (01) ==
LOC: ANHPFT 08:56
PROVIDERS: PCP Family Medicine; Visit Provider Nurse Practitioner Family
DX: J44.9 Chronic obstructive pulmonary disease, unspecified (principal); R94.2 Abnormal results of pulmonary function studies
CPT/HCPCS: 94060; 94726; 94729

== ENCOUNTER 2023-05-23 15:16 | Emergency (ER) | payer MEDICARE, SELFPAY ==
[2023-05-23 15:26] VITALS: BP 90/59; PULSE 107; RESP 20; TEMP 37.2; O2SAT 97
--- NOTE | 2023-05-23 15:53 | ED.URI ---
HPI - URI/Sore Throat General Chief Complaint: Upper Respiratory Infection Stated Complaint: Cough/Bodyaches Time Seen by Provider: 05/23/23 15:50 Source: patient Mode of arrival: ambulatory Limitations: no limitations History of Present Illness HPI Narrative: Roselyn is an 82-year-old female patient presenting to the clinic today with complaints of fever, cough, and body aches x2 days. She reports she was trying to get a COVID test at the local pharmacies and they were out. She would like to be tested for COVID today in the clinic. She denies any known exposure. Was supposed to get her COVID booster shot yesterday but had fever so she was unable to get that at that time. She denies any chest pain or shortness of breath. MD elicited complaint: cough, sore throat, nasal congestion and other (Body aches) Related Data Home Medications Medication Instructions Recorded Confirmed colestipol 1 gram tablet 1 gm PO HS 08/07/19 05/23/23 ursodiol 300 mg capsule 600 mg PO BID 07/17/20 05/23/23 Calcium With Vitamin D3 See Rx Instructions .Route .COMPLEX 02/27/22 05/23/23 clobetasol See Rx Instructions .Route .COMPLEX 02/27/22 05/23/23 magnesium oxide 500 mg PO DAILY 02/27/22 05/23/23 nystatin See Rx Instructions .Route .COMPLEX 02/27/22 05/23/23 triamcinolone acetonide See Rx Instructions .Route .COMPLEX 02/27/22 05/23/23 Allergies Allergy/AdvReac Type Severity Reaction Status Date / Time shrimp Allergy Mild nausea, Verified 05/23/23 15:36 vomiting prednisone Allergy Mild Dizziness Uncoded 05/23/23 15:36 Tramadol Allergy Mild Dizziness Uncoded 05/23/23 15:36 SHELLFISH Allergy Unknown N&V Uncoded 05/23/23 15:36 Review of Systems Review of Systems: Pertinent positives per HPI. Patient denies any rash, headache, visual changes, dizziness, shortness of breath, chest pain, palpitations, nausea, vomiting, diarrhea, constipation, abdominal pain, or any urinary issues. PMFSH Past Medical History Medical History Adult hypothyroidism Arthritis of knee, left Arthritis of knee, right Atrial fibrillation with RVR Benign essential hypertension Carpal tunnel syndrome Chronic diarrhea CKD (chronic kidney disease), stage III Cramp of toe Fatigue Hiatal hernia Hypertrophic lichen planus of vulva Leg cramping Numbness of toes Personal history of gout Plantar fasciitis Primary biliary cholangitis Pulmonary embolism Sleep apnea, unspecified Vertigo Surgical History Surgical History H/O: hysterectomy History of bladder surgery History of bladder suspension procedure History of bowel resection History of carpal tunnel surgery History of cataract surgery History of cholecystectomy History of colon resection History of cystoscopy History of total right knee replacement Family History Family History Sibling Family history of rheumatoid arthritis Family history of heart disease in male family member before age 55 Family history of obesity Hypertension Family history of diabetes mellitus in first degree relative Mother Family history of osteoarthritis Family history of congestive heart failure Hypertension Family history of arthritis Father Cerebrovascular accident Family history of diabetes mellitus in first degree relative Other Diabetes mellitus Family history of cardiovascular disease Social History Social History Smoking packs per day: 2.5 Smoking cigarettes per day: 50.0 Years smoked: 35 Smoking pack-years: 87.50 Smoking status: Former smoker Tobacco type: cigarettes Second hand tobacco smoke exposure: No Smoking end date: 08/28/87 Alcohol intake: never Substance use: never Substance use type: does not use Lack of Transportation: No Lack of Food: Lui sE
== END 2023-05-23 16:00 | disposition home or self-care (01) ==
PROVIDERS: Emergency Provider Nurse Practitioner Family; PCP Family Medicine
DX: U07.1 COVID-19 (principal); E03.9 Hypothyroidism, unspecified; M17.0 Bilateral primary osteoarthritis of knee; I48.91 Unspecified atrial fibrillation; I12.9 Hypertensive chronic kidney disease with stage 1 through stage 4 chronic kidney disease, or unspecified chronic kidney disease; N18.30 Chronic kidney disease, stage 3 unspecified; Z86.711 Personal history of pulmonary embolism; Z96.651 Presence of right artificial knee joint
CPT/HCPCS: 87426; 87804; 99213; C9803; G0463

== ENCOUNTER 2023-06-19 09:03 | Outpatient (CLI) | payer MEDICARE, SELFPAY ==
[2023-06-19 09:22] LABS: Basophils Absolute Auto 0.1 K/mm3 (0.0-0.1); Basophils Percent Auto 1.4 % (0.2-1.2); Eosinophils Absolute Auto 0.2 K/mm3 (0-0.3); Eosinophils Percent Auto 3.8 % (0-4.4); Hematocrit 38.2 % (37.0-47.0); Hemoglobin 11.6 g/dL (12.0-15.0); Immature Granulocyte Absolute 0.03 K/mm3 (0.00-0.031); Immature Granulocyte Percent A 0.5 % (0-0.5); Lymphocytes Percent Auto 29.4 % (18.3-44.2); Mean Corpuscular HGB Conc 30.4 g/dl (32-36); Mean Corpuscular Hemoglobin 24.7 pg (26-34); Mean Corpuscular Volume 81.3 fl (80-100); Mean Platelet Volume 11.1 fl (7.4-10.4); Monocytes Absolute Auto 0.6 K/mm3 (0.1-0.6); Monocytes Percent Auto 10.7 % (2.6-8.5); Neutrophils Absolute Auto 3.1 K/mm3 (1.3-6.7); Neutrophils Percent Auto 54.2 % (45.5-73.1); Platelet Count Result 238 k/mm3 (150-375); Red Cell Distribution Width 22.1 % (11.5-14.5); White Blood Count 5.8 K/mm3 (4.5-10.0)
[2023-06-19 09:37] LABS: Iron 121 ug/dL (37-170)
[2023-06-19 09:47] LABS: Percent Iron Saturation 36 % (20-50)
[2023-06-19 10:00] LABS: Platelet Estimate Adequate (Adequate)
[2023-06-19 10:01] LABS: Anisocytosis 1+ (NORMAL); Schistocytes None Seen (NORMAL)
== END 2023-06-19 09:04 | disposition home or self-care (01) ==
LOC: ANHLAB 09:04
PROVIDERS: PCP Family Medicine; Visit Provider Nurse Practitioner Family
DX: D64.9 Anemia, unspecified (principal)
CPT/HCPCS: 36415; 83540; 83550; 85025

== ENCOUNTER 2023-06-29 12:26 | Outpatient (CLI) | payer MEDICARE, SELFPAY ==
--- NOTE | ~2023-06-29 | NM_ITS ---
EXAMINATION: NM lung vent and perfusion DATE: 06/29/2023 13:16 INDICATION: Other forms of dyspnea. TECHNIQUE: 29 mCi xenon-133 by inhalation and 5.4 mCi Tc-99m MAA by intravenous route. Scintigraphic images of the chest were obtained. COMPARISON: Chest radiograph dated 06/29/2023 FINDINGS: There is homogeneous radiotracer activity throughout the lungs on the single breath ventilation seque nce. There is however diffuse delayed washout consistent with obstructive pulmonary disease. There ar e small perfusion defects along the basilar left and right lower lobes, the posterior left lower lobe and at the posterior right upper lobe. No moderate or large perfusion defects. IMPRESSION: 1. Low probability for pulmonary embolism with delayed washout ventilatory images consistent with ob structive pulmonary disease. Reviewed, dictated and finalized at location A. IMPRESSION: 1. Low probability for pulmonary embolism with delayed washout ventilatory corina ges consistent with obstructive pulmonary disease.
--- NOTE | ~2023-06-29 | XR_ITS ---
XR chest 2V 06/29/2023 12:52 Indication: Dyspnea and shortness of breath Procedure: 2 view chest Comparison: Comparison to multiple prior studies sequentially, with oldest reviewed study dated 12/2021. Findings: Heart size normal. No focal air space disease, pulmonary edema, pleural effusion or suspect ed pneumothorax. There is evidence of chronic granulomatous disease, stable. Impression: 1: No acute cardiopulmonary disease. Reviewed, dictated and finalized at location A. Impression: 1: No acute cardiopulmonary disease.
== END 2023-06-29 12:27 | disposition home or self-care (01) ==
PROVIDERS: PCP Family Medicine; Visit Provider Nurse Practitioner Family
DX: R06.09 Other forms of dyspnea (principal)
CPT/HCPCS: 71046; 78582; A9540; A9558

== ENCOUNTER 2023-07-05 07:24 | Outpatient (CLI) | payer MEDICARE, SELFPAY ==
--- NOTE | 2023-07-05 07:35 | ECHO_ITS ---
Patient Info Name: Roselyn Otero Age: 83 years : 1940 Gender: Female Ht: 62 in Wt: 140 lbs BSA: 1.68 m2 HR: 83 bpm BP: 156 / 95 mmHg Heart Rhythm: Sinus Rhythm Technical Quality: Good Exam Date: 07/05/2023 7:46 AM Exam Location: Echo Lab Patient Status: Outpatient Admit Date: 07/05/2023 Staff Ordering Physician: Arnulfo Michelle APRN Wood Carver: Nicole Sosa RDCS Attending Provider: Arnulfo Michelle APRN Referring Physician: Miguel Angel CARROLL; Exam Type: CA echo doppler color flow Study Info Indications R06.09 - Other forms of dyspnea Complete two-dimensional, color flow and Doppler transthoracic echocardiogram is performed. Summary 1. Complete two-dimensional, color flow and Doppler transthoracic echocardiogram is performed. 2. Left ventricular chamber dimension is normal. 3. Left ventricular systolic function is normal, estimated at 55-60%. 4. There is mildly increased left ventricular wall thickness. 5. The left ventricular diastolic function is grade I diastolic dysfunction. 6. Right ventricular systolic function is normal. 7. There is mild tricuspid valve regurgitation. 8. Estimated pulmonary arterial systolic pressure is 41 mmHg. Left Ventricle Left ventricular chamber dimension is normal. Left ventricular systolic function is normal, estimated at 55-60%. There is mildly increased left ventricular wall thickness. The left ventricular diastolic function is grade I diastolic dysfunction. Right Ventricle Right ventricular chamber dimension is normal. Right ventricular systolic function is normal. Left Atria Left atrial chamber dimension is normal. Right Atria Right atrial chamber dimension is normal. Atrial Septum Intact interatrial septum visualized by color flow imaging. Aortic Valve The aortic valve is trileaflet. There is no aortic valve stenosis. There is no aortic valve regurgitation. Pulmonic Valve The pulmonic valve is not well visualized. There is trace pulmonic regurgitation. Mitral Valve There is trace mitral valve regurgitation. Tricuspid Valve There is mild tricuspid valve regurgitation. Estimated pulmonary arterial systolic pressure is 41 mmHg. Pericardium/Pleural The pericardium appears epicardial fat pad. There is no pericardial effusion. Inferior Vena Cava Normal inferior vena cava with >50% collapse upon inspiration consistent with normal right atrial pressure, 3 mmHg. Aorta The aortic root size at the sinus of Valsalva is normal. Left Ventricular Outflow Tract Name Value Normal LVOT 2D LVOT Diameter 2.0 cm LVOT Doppler LVOT Peak Gradient 5 mmHg LVOT Mean Gradient 2 mmHg LVOT VTI 22 cm LVOT VTI/AV VTI Ratio 0.8 LVOT Stroke Volume 69 ml LVOT CO 5.2 l/min LVOT CI 3.1 l/min/m2 Pulmonic Valve Name Value Normal RVOT Doppler
== END 2023-07-05 07:25 | disposition home or self-care (01) ==
PROVIDERS: PCP Family Medicine; Visit Provider Nurse Practitioner Family
DX: R06.09 Other forms of dyspnea (principal); I07.1 Rheumatic tricuspid insufficiency; R93.1 Abnormal findings on diagnostic imaging of heart and coronary circulation
CPT/HCPCS: 93306

== ENCOUNTER 2023-08-10 15:55 | Outpatient (CLI) | payer MEDICARE, SELFPAY ==
--- NOTE | ~2023-08-10 | MM_ITS ---
EXAMINATION: MM screening elicia BI w mariano HISTORY: Screening TECHNIQUE: Craniocaudal and mediolateral oblique 3-D tomosynthesis images were obtained and synthetic 2-D images were generated. CAD analysis was submitted and interpreted. COMPARISON: Comparison to multiple prior studies sequentially, with oldest reviewed study dated 09/2018. BREAST PARENCHYMAL COMPOSITION: There are scattered areas of fibroglandular density. FINDINGS: There is no evidence of suspicious mass, calcification, or architectural distortion to sugg est malignancy in either breast. There has been no suspicious interval change. IMPRESSION: 1. No mammographic evidence of malignancy. 2. Recommend routine screening mammography in one year. BI-RADS Category 1: Negative Reviewed, dictated and finalized at location A. ASSESSMENT CONSULTANT
== END 2023-08-10 15:56 | disposition home or self-care (01) ==
PROVIDERS: PCP Family Medicine; Visit Provider Family Medicine
DX: Z12.31 Encounter for screening mammogram for malignant neoplasm of breast (principal)
CPT/HCPCS: 77063; 77067

== ENCOUNTER 2023-08-11 13:26 | Outpatient (CLI) | payer MEDICARE, SELFPAY ==
--- NOTE | ~2023-08-11 | XR_ITS ---
EXAMINATION: XR barium swallow modified DATE: 08/11/2023 14:19 INDICATION: Dysphagia. TECHNIQUE: The patient was given barium-containing material of multiple consistencies to swallow by t he speech pathologist while I performed fluoroscopy. Fluoroscopy exposure time was 1.0 minutes. The n umber of fluoroscopy images saved to the PACS was 1. Dose-area product was 0.637 Gy-cm^2. FINDINGS: There is trace to mild laryngeal penetration with uncontrolled thin liquids exiting with the swallow. IMPRESSION: 1. Trace to mild laryngeal penetration with uncontrolled thin liquids. 2. Please refer to the speech therapy report for recommendations. Reviewed, dictated and finalized at location A. GER EMPLOYMENT
--- NOTE | 2023-08-11 14:38 | REHSTMBS ---
Assessment and note entered by Sara Camejo, [employer] OPERATOR Modified Barium Swallow Evaluation Feeding Type Recommended Oral Food Consistency Regular, Level 7 Liquid Consistency Thin (0) ST Clinical Summary MODIFIED BARIUM SWALLOW STUDY (MBS) This patient was seen for a Modified Barium Swallow study at the request of Dr. Hammer. Patient reports that she has difficulty swallowing chicken and other dry meat and that occasionally pills hang up in her throat. She was asked if liquids cause her to tickle or cough and she stated only if she has consumed solid food that she feels is still in her throat and not clearing from the base of the throat but if she is drinking liquids away from a meal, she has no difficulty. Patient was viewed in the lateral position to the level of C5/C6. She was presented with uncontrolled thin liquid contrast medium per cup and then per straw, pudding mixed with semi-solid contrast medium, and then fruit pieces and ervin cracker pieces both coated with the semi-solid mixture. Patient exhibited quick swallows with uncontrolled liquid material consistently reaching just inside the upper laryngeal vestibule, then clearing with the swallows. There was no laryngeal residue after each swallow and not at the end of the evaluation. Patient tolerated pudding material and solid pieces with no additional penetration noted. Results indicate this patient may be at mild risk for aspiration however this would indicate possibly on thin liquids. Patient may also benefit from a referral to a japanese tutor to further assess cricopharyngeal function to see if that may be contributing to her complaints. Patient may remain on Regular Liquids and Diet however she was instructed in the use of head flexion to facilitate the prevention of aspiration, and she was instructed to avoid dry foods or add moisture including sauces, gravies, cream soups, etc. and to cut foods into small pieces. She voiced understanding of recommendations. No further Speech Therapy is indicated at this time.
== END 2023-08-11 13:27 | disposition home or self-care (01) ==
LOC: ANHIMG 13:28
PROVIDERS: PCP Family Medicine; Visit Provider Internal Medicine Critical Care Medicine
DX: R13.10 Dysphagia, unspecified (principal)
CPT/HCPCS: 92611

== ENCOUNTER 2023-12-05 10:02 | Emergency (ER) | payer MEDICARE, SELFPAY ==
[2023-12-05 10:14] VITALS: BP 164/73; PULSE 67; RESP 16; TEMP 36.6; O2SAT 98
--- NOTE | 2023-12-05 10:15 | ED.NECK ---
HPI - Neck Pain/Injury General Chief Complaint: Extremity Injury, Upper Stated Complaint: Neck Pain/Right Hand Thumb Pain Time Seen by Provider: 12/05/23 10:15 Source: patient Mode of arrival: ambulatory Limitations: no limitations History of Present Illness HPI Narrative: Roselyn is an 83-year-old female patient presenting to the clinic today with complaints right sided neck/shoulder pain and right thumb discomfort. She reports that she noticed a cut to her right thumb about 3 weeks ago. States the area is swollen and tender to palpation. Has been applying topical antibiotic to the thumb. States that she injured her shoulder/neck back in July when she fell. Had not seen a any provider at the time of injury. Denies any radiation of pain going down her arm. Denies hitting her head or any loss of consciousness at that time. Related Data Home Medications Medication Instructions Recorded Confirmed colestipol 1 gram tablet 1 gm PO HS 08/07/19 12/05/23 ursodiol 300 mg capsule 600 mg PO BID 07/17/20 12/05/23 Calcium With Vitamin D3 See Rx Instructions .Route .COMPLEX 02/27/22 12/05/23 clobetasol See Rx Instructions .Route .COMPLEX 02/27/22 12/05/23 magnesium oxide 500 mg PO DAILY 02/27/22 12/05/23 nystatin See Rx Instructions .Route .COMPLEX 02/27/22 12/05/23 triamcinolone acetonide See Rx Instructions .Route .COMPLEX 02/27/22 12/05/23 albuterol sulfate 90 mcg/actuation 1 puff inhalation Q4H PRN 06/08/23 12/05/23 aerosol inhaler (ProAir HFA) Shortness Of Breath Or Wheezing propylene glycol 0.6 % eye drops 1 drp EACH EYE DAILY PRN Dry Eyes 08/02/23 12/05/23 (Systane Balance) Allergies Allergy/AdvReac Type Severity Reaction Status Date / Time shrimp Allergy Mild nausea, Verified 10/09/23 13:10 vomiting prednisone Allergy Mild Dizziness Uncoded 09/19/23 13:57 Tramadol Allergy Mild Dizziness Uncoded 09/19/23 13:57 SHELLFISH Allergy Unknown N&V Uncoded 09/19/23 13:57 Review of Systems Review of Systems: Pertinent positives per HPI. Patient denies any fever, chills, rash, headache, visual changes, dizziness, cough, shortness of breath, chest pain, palpitations, nausea, vomiting, diarrhea, constipation, abdominal pain, or any urinary issues. [facility] Past Medical History Medical History Abnormal barium swallow Adult hypothyroidism Arthritis of knee, left Arthritis of knee, right Atrial fibrillation with RVR Benign essential hypertension Carpal tunnel syndrome Chronic diarrhea CKD (chronic kidney disease), stage III Cramp of toe Fatigue Hiatal hernia Hypertrophic lichen planus of vulva Leg cramping Numbness of toes Paroxysmal atrial fibrillation Personal history of gout Plantar fasciitis Primary biliary cholangitis Pulmonary embolism Sleep apnea, unspecified Vertigo Surgical History Surgical History H/O: hysterectomy History of bladder surgery History of bladder suspension procedure History of bowel resection History of carpal tunnel surgery History of cataract surgery History of cholecystectomy History of colon resection History of cystoscopy History of total right knee replacement Family History Family History Sibling Family history of rheumatoid arthritis Family history of heart disease in male family member before age 55 Family history of obesity Hypertension Family history of diabetes mellitus in first degree relative Mother Family history of osteoarthritis Family history of congestive heart failure Hypertension Family history of arthritis Father Cerebrovascular accident Family history of diabetes mellitus in first degree relative Other Diabetes mellitus Family history of cardiovascular disease Social History Social History Smoking packs per day:
== END 2023-12-05 10:32 | disposition home or self-care (01) ==
PROVIDERS: Emergency Provider Nurse Practitioner Family; PCP Family Medicine
DX: S16.1XXA Strain of muscle, fascia and tendon at neck level, initial encounter (principal); W19.XXXA Unspecified fall, initial encounter; R22.31 Localized swelling, mass and lump, right upper limb; Z87.891 Personal history of nicotine dependence; E03.9 Hypothyroidism, unspecified; M17.0 Bilateral primary osteoarthritis of knee; I48.91 Unspecified atrial fibrillation; I13.10 Hypertensive heart and chronic kidney disease without heart failure, with stage 1 through stage 4 chronic kidney disease, or unspecified chronic kidney disease; N18.30 Chronic kidney disease, stage 3 unspecified; I48.0 Paroxysmal atrial fibrillation; Z86.711 Personal history of pulmonary embolism; Z96.651 Presence of right artificial knee joint
CPT/HCPCS: 99213; G0463

== ENCOUNTER 2024-01-12 14:01 | Emergency (ER) | payer MEDICARE, SELFPAY ==
[2024-01-12] VITALS (13 sets, daily range): BP systolic 153–195; BP diastolic 60–96; PULSE 48–108; RESP 13–20; TEMP 36.5; O2SAT 96–100
--- NOTE | ~2024-01-12 | CT_ITS ---
EXAMINATION: CT brain wo con DATE: 01/12/2024 15:54 INDICATION: Dizziness. Headache. TECHNIQUE: Computed tomography (CT) of the head was performed without intravenous contrast. The mA wa s adjusted according to patient size. Iterative reconstruction technique was employed. The dose-lengt h product was 605.33 mGy-cm. COMPARISON: None FINDINGS: There is no intracranial hemorrhage, acute infarction, or abnormal intracranial mass lesion . The ventricles are normal in size. There are likely changes of ocular lens replacement surgeries. T he paranasal sinuses are clear. The mastoid air cells are normal. IMPRESSION: 1. Normal brain. Reviewed, dictated and finalized at location E. IMPRESSION: 1. Normal brain.
--- NOTE | ~2024-01-12 | XR_ITS ---
EXAMINATION: XR chest 1V portable DATE: 01/12/2024 15:41 INDICATION: Dizziness. TECHNIQUE: A single frontal view of the chest was obtained. COMPARISON: Chest 2 views 06/29/2023 FINDINGS: Calcified left lung nodules and calcified left hilar and mediastinal lymph nodes are consis tent with old granulomatous disease. No pleural effusion or pneumothorax. The heart size is normal. IMPRESSION: 1. No acute cardiopulmonary disease. Reviewed, dictated and finalized at location E.
--- NOTE | 2024-01-12 15:12 | ED.GENADULT ---
HPI - General Adult General Chief complaint: Recheck/Abnormal Lab/Rx Stated complaint: headache, nausea Time Seen by Provider: 01/12/24 15:11 Source: patient Mode of arrival: ambulatory Limitations: no limitations History of Present Illness HPI narrative: 84 YEARS OLD WHITE FEMALE DROVE HERSELF TO THE EMERGENCY ROOM COMPLAINING OF GENERALIZED DULL ACHING HEADACHE, DIZZINESS WHILE SITTING. PATIENT REPORTED THE THIS NEEDS IMAGING HIS PAINS ASSOCIATED WITH NAUSEA WORSE WITH AND HEAD OR BODY MOVEMENT, BETTER IF SHE REMAINS STILL. HISTORY OF HYPERTENSION A BONE MEDICINE FOR HOME USE, WAS TOLD BY HER FAMILY PHYSICIAN THAT SHE DOES NOT NEED ANY MOVE. LAST TIME WAS SEEN BY HER FAMILY PHYSICIAN JULY 2003 AND WAS TOLD THAT HER BLOOD PRESSURE IS OKAY. THE AREA IS HISTORY OF AGAIN THE CA AND LIVER AND A DOES NOT DRINK PAST DRUGS. Related Data Home Medications Medication Instructions Recorded Confirmed colestipol 1 gram tablet 1 gm PO HS 08/07/19 01/09/24 ursodiol 300 mg capsule 600 mg PO BID 07/17/20 01/09/24 Calcium With Vitamin D3 See Rx Instructions .Route .COMPLEX 02/27/22 01/09/24 clobetasol See Rx Instructions .Route .COMPLEX 02/27/22 01/09/24 magnesium oxide 500 mg PO DAILY 02/27/22 01/09/24 nystatin See Rx Instructions .Route .COMPLEX 02/27/22 01/09/24 triamcinolone acetonide See Rx Instructions .Route .COMPLEX 02/27/22 01/09/24 albuterol sulfate 90 mcg/actuation 1 puff inhalation Q4H PRN 06/08/23 01/09/24 aerosol inhaler (ProAir HFA) Shortness Of Breath Or Wheezing propylene glycol 0.6 % eye drops 1 drp EACH EYE DAILY PRN Dry Eyes 08/02/23 01/09/24 (Systane Balance) Allergies Allergy/AdvReac Type Severity Reaction Status Date / Time shrimp Allergy Mild nausea, Verified 10/09/23 13:10 vomiting prednisone Allergy Mild Dizziness Uncoded 09/19/23 13:57 Tramadol Allergy Mild Dizziness Uncoded 09/19/23 13:57 SHELLFISH Allergy Unknown N&V Uncoded 09/19/23 13:57 Review of Systems Review of Systems: All systems reviewed & are unremarkable except as noted in HPI and below PMFSH Past Medical History Medical History Abnormal barium swallow Adult hypothyroidism Arthritis of knee, left Arthritis of knee, right Atrial fibrillation with RVR Benign essential hypertension Carpal tunnel syndrome Chronic diarrhea CKD (chronic kidney disease), stage III Cramp of toe Fatigue Hiatal hernia Hypertrophic lichen planus of vulva Leg cramping Numbness of toes Paroxysmal atrial fibrillation Personal history of gout Plantar fasciitis Primary biliary cholangitis Pulmonary embolism Sleep apnea, unspecified Vertigo Surgical History Surgical History H/O: hysterectomy History of bladder surgery History of bladder suspension procedure History of bowel resection History of carpal tunnel surgery History of cataract surgery History of cholecystectomy History of colon resection History of cystoscopy History of total right knee replacement Family History Family History Sibling Family history of rheumatoid arthritis Family history of heart disease in male family member before age 55 Family history of obesity Hypertension Family history of diabetes mellitus in first degree relative Mother Family history of osteoarthritis Family history of congestive heart failure Hypertension Family history of arthritis Father Cerebrovascular accident Family history of diabetes mellitus in first degree relative Other Diabetes mellitus Family history of cardiovascular disease Social History Social History Smoking packs per day: 2.5 Smoking cigarettes per day: 50.0 Years smoked: 35 Smoking pack-years: 87.50 Smoking status: Former smoker Tobacco type: cigarettes Second hand tobacco smoke exposure: No Smokin
--- NOTE | 2024-01-12 15:18 | ECG_ITS ---
SEE SCANNED COPY FOR CONFIRMED REPORT MTDD
[2024-01-12 15:42] LABS: Basophils Percent Auto 0.7 % (0.2-1.2); Eosinophils Absolute Auto 0.1 K/mm3 (0-0.3); Hematocrit 39.7 % (37.0-47.0); Hemoglobin 12.5 g/dL (12.0-15.0); Immature Granulocyte Absolute 0.01 K/mm3 (0.00-0.031); Immature Granulocyte Percent A 0.2 % (0-0.5); Lymphocytes Percent Auto 31.4 % (18.3-44.2); Mean Corpuscular HGB Conc 31.5 g/dl (32-36); Mean Corpuscular Hemoglobin 26.8 pg (26-34); Mean Corpuscular Volume 85.2 fl (80-100); Mean Platelet Volume 10.5 fl (7.4-10.4); Monocytes Absolute Auto 0.5 K/mm3 (0.1-0.6); Monocytes Percent Auto 7.8 % (2.6-8.5); Neutrophils Absolute Auto 3.4 K/mm3 (1.3-6.7); Neutrophils Percent Auto 58.9 % (45.5-73.1); Platelet Count Result 189 k/mm3 (150-375); Red Blood Count 4.66 M/mm3 (4.2-5.4); White Blood Count 5.7 K/mm3 (4.5-10.0)
[2024-01-12 15:58] LABS: Alanine Aminotransferase 15 U/L (6-35); Albumin Level 4.1 g/dL (3.5-5.1); Alkaline Phosphatase 125 U/L (38-126); Anion Gap 7 mmol/L (4-12); Aspartate Amino Transferase 26 U/L (14-36); Bilirubin,Total 0.5 mg/dL (0.2-1.3); Blood Urea Nitrogen 24 mg/dL (7-17); Calcium 9.4 mg/dL (8.4-10.2); Carbon Dioxide 23 mmol/L (22-30); Chloride 108 mmol/L (98-107); Estimated CRCL calculation 23 ml/min; Estimated Glomerular Filt Rate 36; Glucose 110 mg/dL (65-110); Potassium 4.2 mmol/L (3.4-5.0); Sodium 138 mmol/L (137-145)
[2024-01-12 15:59] LABS: Prothrombin Time 13.7 Seconds (11.1-14.7)
[2024-01-12 16:00] LABS: Partial Thromboplastin Time 28.9 Seconds (22.3-36.8)
[2024-01-12 16:09] LABS: Troponin I < 0.012 ng/mL (0.000-0.034)
[2024-01-12] MEDS: ONDANSETRON INJ 4 MG/2 ML VIAL 8 MG IV PUSH (16:20)
[2024-01-12] MEDS: MECLIZINE HCL 25 MG TABLET PO (16:20)
[2024-01-12] MEDS: diazePAM (*CRX) 5 MG TABLET 2.5 MG PO (16:20)
[2024-01-12 16:24] LABS: Erythrocyte Sedimentation Rate 35 mm/hr (0-20)
[2024-01-12 17:30] LABS: Appearance Urine Clear (Clear); Bilirubin Urine Negative (Negative); Blood Urine Negative (Negative); Color Urine Yellow (Yellow); Glucose Urine UA Negative (Negative); Ketones Urine Negative (Negative); Leukocyte Esterase Ur Negative LEU/UL (Negative); Nitrate Urine Negative (Negative); Protein Urine Negative (Negative); Specific Grav Ur 1.009 (1.001-1.035); Urobilinogen Urine 0.2 mg/dL (<2.0)
[2024-01-12 17:32] LABS: Add Urine Microscopic? YES
[2024-01-12] MEDS: hydrALAZINE HCL 20 MG/ML VIAL 10 MG IV PUSH (17:40)
== END 2024-01-12 19:01 | disposition home or self-care (01) ==
PROVIDERS: Emergency Provider Emergency Medicine; PCP Family Medicine
DX: R42 Dizziness and giddiness (principal); I12.9 Hypertensive chronic kidney disease with stage 1 through stage 4 chronic kidney disease, or unspecified chronic kidney disease; N18.30 Chronic kidney disease, stage 3 unspecified; I48.0 Paroxysmal atrial fibrillation; E03.9 Hypothyroidism, unspecified; M10.9 Gout, unspecified; M17.0 Bilateral primary osteoarthritis of knee; K44.9 Diaphragmatic hernia without obstruction or gangrene; Z96.651 Presence of right artificial knee joint; Z86.711 Personal history of pulmonary embolism; Z87.891 Personal history of nicotine dependence; Z90.710 Acquired absence of both cervix and uterus; Z90.49 Acquired absence of other specified parts of digestive tract; R00.1 Bradycardia, unspecified; I45.9 Conduction disorder, unspecified
CPT/HCPCS: 36415; 70450; 71045; 80053; 81001; 84484; 85025; 85610; 85652; 85730; 93005; 96374; 96375; 99284; A9270; J0360; J2405

== ENCOUNTER 2024-01-18 14:04 | Outpatient (CLI) | payer MEDICARE, SELFPAY ==
--- NOTE | ~2024-01-18 | XR_ITS ---
EXAMINATION: [id number]_[id number]_CR DATE: 01/18/2024 14:23 INDICATION: Neck pain. TECHNIQUE: 3 views of cervical spine were obtained. COMPARISON: None. FINDINGS: There is 6 degrees levocurvature of cervical spine. There is kyphosis of cervical spine. Th ere is 2 mm anterolisthesis of C4 on C5 and 2 mm retrolisthesis of C5 on C6. Vertebral body heights a re normal. There is moderately decreased disc height at C4-C5 and severely decreased disc height at C 5-C6 and C6-C7. There is multilevel facet joint osteoarthritis, severe on the right at C4-C5. There i s mild central canal stenosis at C5-C6. No prevertebral soft tissue swelling. IMPRESSION: 1. Severe cervical spondylosis. Reviewed, dictated and finalized at location A.
== END 2024-01-18 14:05 | disposition home or self-care (01) ==
LOC: ANHIMG 14:05
PROVIDERS: PCP Family Medicine; Visit Provider Nurse Practitioner Family
DX: M47.892 Other spondylosis, cervical region (principal)
CPT/HCPCS: 72040

== ENCOUNTER 2024-07-17 23:39 | Emergency (ER) | payer MEDICARE, SELFPAY ==
--- NOTE | ~2024-07-17 | CT_ITS ---
Non-contrast CT scan of the Abdomen and Pelvis Clinical indication: Abdominal pain Technique: 2.5 mm axial scans were obtained through the abdomen and pelvis without intravenous or or al contrast. Dose reduction technique was used on this scan by utilizing automated exposure control a nd iterative reconstruction technique. The dose-length product (DLP) was 383.90 mGy-cm. Findings: Images through the lung bases reveal moderate bibasilar emphysema. 6 mm nodule in the infe rior lingula likely represents a focal impacted airway (axial image 24). Calcified left lower lobe gr anuloma present.. There is no evidence of renal or ureteral calculi. The kidneys and the ureters are nondilated. There is relatively atrophic change of the right kidney as compared to left. Probable nodular contour, most notable at the inferior liver. Cholecystectomy clips are present. The spleen, pancreas, and adrenals appear normal. There are atherosclerotic calcifications of the aorta. . There is no evidence of bowel obstruction. Images through the pelvis were performed. There is no evidence of ascites or lymphadenopathy. Probabl e right-sided urinary bladder diverticulum. Status post hysterectomy. No pelvic mass evident. Impression: Probable cirrhotic morphology of liver. Relatively atrophic right kidney. Reviewed, dictated and finalized at location . DEVELOPER Impression: Probable cirrhotic morphology of liver. Relatively atrophic right kidney.
[2024-07-17 23:39] VITALS: BP 117/78; PULSE 99; RESP 15; O2SAT 96
[2024-07-18] VITALS (10 sets, daily range): BP systolic 102–118; BP diastolic 60–77; PULSE 79–88; RESP 15–20; O2SAT 94–97
[2024-07-18 00:19] LABS: Alanine Aminotransferase 16 U/L (6-35); Alkaline Phosphatase 131 U/L (38-126); Anion Gap 9 mmol/L (4-12); Aspartate Amino Transferase 28 U/L (14-36); Bilirubin,Total 0.6 mg/dL (0.2-1.3); Blood Urea Nitrogen 40 mg/dL (7-17); Calcium 9.6 mg/dL (8.4-10.2); Carbon Dioxide 20 mmol/L (22-30); Chloride 106 mmol/L (98-107); Estimated CRCL calculation 19 ml/min; Estimated Glomerular Filt Rate 27; Glucose 120 mg/dL (65-110); Lipase 48 U/L (23-300); Magnesium 1.9 mg/dL (1.6-2.3); Potassium 4.9 mmol/L (3.4-5.0); Sodium 135 mmol/L (137-145)
--- NOTE | 2024-07-18 00:34 | ED.NAVMDI ---
HPI - Nausea/Vomiting/Diarrhea General Chief complaint: Nausea/Vomiting/Diarrhea <Juvenal Montenegro PA-C - Last Filed: 07/24/24 09:34> Stated complaint: n/v <Juvenal Montenegro PA-C - Last Filed: 07/24/24 09:34> Time Seen by Provider: 07/17/24 23:53 <Juvenal Montenegro PA-C - Last Filed: 07/24/24 09:34> Source: patient <MARCIA Becerril Last Filed: 07/24/24 09:34> Mode of arrival: ambulatory <MARCIA Becerril Last Filed: 07/24/24 09:34> Limitations: no limitations <Juvenal Montenegro PA-C - Last Filed: 07/24/24 09:34> History of Present Illness HPI Narrative: This is an 84-year-old female who presents to the ED via EMS from home with chief complaint of abdominal pain and diarrhea for the past 12 hours. Patient reports that she has had numerous episodes of diarrhea since 1600 this afternoon. She reports she had some cramping and a couple loose stools earlier in the morning after she woke up but it really got bad this afternoon. Reports that she took 3 doses of Pepto-Bismol this afternoon. She was concerned as the last couple of bowel movements produce some black stools. She complains of nausea but no vomiting. Denies recent illness, fevers, chills, back pain, chest pain. Denies any GI bleeding history or use of blood thinners. Denies any known sick contacts. Denies recent antibiotic use or recent hospitalization. <Juvenal Montenegro PA-C - Last Filed: 07/24/24 09:34> Related Data Home medications: Home Medications Medication Instructions Recorded Confirmed colestipol 1 gram tablet 1 gm PO HS 08/07/19 04/15/24 ursodiol 300 mg capsule 600 mg PO BID 07/17/20 04/15/24 Calcium With Vitamin D3 See Rx Instructions .Route .COMPLEX 02/27/22 04/15/24 clobetasol See Rx Instructions .Route .COMPLEX 02/27/22 04/15/24 magnesium oxide 500 mg PO DAILY 02/27/22 04/15/24 nystatin See Rx Instructions .Route .COMPLEX 02/27/22 04/15/24 triamcinolone acetonide See Rx Instructions .Route .COMPLEX 02/27/22 04/15/24 propylene glycol 0.6 % eye drops 1 drp EACH EYE DAILY PRN Dry Eyes 08/02/23 04/15/24 (Systane Balance) <Juvenal Montenegro PA-C - Last Filed: 07/24/24 09:34> Allergies/Adverse reactions: Allergies Allergy/AdvReac Type Severity Reaction Status Date / Time shrimp Allergy Mild nausea, Verified 05/03/24 11:08 vomiting prednisone Allergy Mild Dizziness Uncoded 05/03/24 11:08 Tramadol Allergy Mild Dizziness Uncoded 05/03/24 11:08 SHELLFISH Allergy Unknown N&V Uncoded 05/03/24 11:08 <Juevnal Montenegro PA-C - Last Filed: 07/24/24 09:34> Review of Systems Review of Systems: All systems as dictated in HPI <Juvenal Montenegro PA-C - Last Filed: 07/24/24 09:34> PMFSH Past Medical History Medical History: Medical History Abnormal barium swallow Adult hypothyroidism Arthritis of knee, left Arthritis of knee, right Atrial fibrillation with RVR Benign essential hypertension Carpal tunnel syndrome Chronic diarrhea CKD (chronic kidney disease), stage III Cramp of toe Fatigue Hiatal hernia Hypertrophic lichen planus of vulva Leg cramping Numbness of toes Paroxysmal atrial fibrillation Personal history of gout Plantar fasciitis Primary biliary cholangitis Pulmonary embolism Sleep apnea, unspecified Vertigo <Juvenal Montenegro PA-C - Last Filed: 07/24/24 09:34> Surgical History Surgical History: Surgical History H/O: hysterectomy History of bladder surgery History of bladder suspension procedure History of bowel resection History of carpal tunnel surgery History of cataract surgery History of cholecystectomy History of colon resection History of cystoscopy History of total right knee replacement <Juvenal Montenegro PA-C - Last Filed: 07/24/24 09:34> Family History Family History: Family History Sibling Family history of rheumatoid arthritis Family history of heart disease in male family member before age 55 Family history of obesity Hypertension Family history of diabetes mellitus in first degree relative Mother Family history of osteoarthritis Family history of congestive heart failure Hypertension Family history of arthritis Father Cerebrovascular accident Family history of diabetes mellitus in first degree relative Other Diabetes mellitus Family history of cardiovascular disease <Juvenal Montenegro PA-C - Last Filed: 07/24/24 09:34> Social History Social History: Social History Smoking packs per day: 2.5 Smoking cigarettes per day: 50.0 Years smoked: 35 Smoking pack-years: 87.50 Smoking status: Former smoker Tobacco type: cigarettes Second hand tobacco smoke exposure: No Smoking end date: 08/28/87 Alcohol intake: never Substance use: never Substance use type: does not use Do You Feel Safe in your Home?: Yes Lack of Transportation: No Lack of Food: Never True Current Housing: I Have Housing Concerned About Future Housing: Decline to Answer Difficulty Paying Gas/Electric Bills: Decline to Answer Difficulty Paying for Meds: Decline to Answer Currently Unemployed: Decline to Answer Education: Decline to Answer Difficulty w/ Childcare or Family Care: Decline to Answer Living arrangements: alone Occupation/Education: retired 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 HEAD: Normocephalic, atraumatic. EYES: PERRLA and EOMI. ENT: Nares clear, no rhinorrhea or epistaxis. Mucous membranes moist. Oropharynx without tonsillar hypertrophy exudate or other lesions. NECK: Supple. No adenopathy or masses. CHEST: No respiratory distress. Clear to auscultation. No wheezes rales or rhonchi HEART: Regular rate and rhythm. No murmur heard. Normal peripheral pulses. ABDOMEN: Mild suprapubic tenderness. Soft, otherwise nontender, nondistended, normal active bowel sounds. Negative flank tenderness bilaterally MSK: Normal range of motion. No edema. SKIN: Warm, dry, no rash. NEURO: Alert and oriented x4. No focal deficits. PSYCH: Normal mood and affect. <Juvenal Montenegro PA-C - Last Filed: 07/24/24 09:34> Course Vital Signs Vital signs: Vital Signs Pulse Rate 99 07/17/24 23:39 Respiratory Rate 15 07/17/24 23:39 Blood Pressure 117/78 07/17/24 23:39 Pulse Oximetry 96 07/17/24 23:39 Oxygen Delivery Room Air 07/17/24 23:39 Pulse Rate 88 07/18/24 03:15 Respiratory Rate 17 07/18/24 03:15 Blood Pressure 108/60 07/18/24 02:46 Pulse Oximetry 96 07/18/24 03:15 Oxygen Delivery Room Air 07/17/24 23:39 <Juvenal Montenegro PA-C - Last Filed: 07/24/24 09:34> Vital Signs Pulse Rate 99 07/17/24 23:39 Respiratory Rate 15 07/17/24 23:39 Blood Pressure 117/78 07/17/24 23:39 Pulse Oximetry 96 07/17/24 23:39 Oxygen Delivery Room Air 07/17/24 23:39 Pulse Rate 88 07/18/24 03:15 Respiratory Rate 17 07/18/24 03:15 Blood Pressure 108/60 07/18/24 02:46 Pulse Oximetry 96 07/18/24 03:15 Oxygen Delivery Room Air 07/17/24 23:39 <Charan Devries MD - Last Filed: 07/18/24 03:10> MDM - Nausea/Vomiting/Diarrhea MDM Narrative Medical decision making narrative: This is a 84-year-old female who presents to the ED for chief complaint of persistent diarrhea x1 day with lower abdominal cramping.. Vitals are normal. Exam shows mild lower abdominal tenderness but otherwise benign. There was question of possible GI bleed due to observing black stools at home, however the patient did take 3 doses of Pepto-Bismol prior to this. Lab work shows normal white count and hemoglobin on the CBC. CMP remarkable for an elevated BUN of 40 and creatinine of 1.80, consistent with dehydration. Electrolytes intact. CRP is normal. Patient will be handed off to attending Dr. Devries at the time of shift change pending CT results. <Juvenal Montenegro PA-C - Last Filed: 07/24/24 09:34> This is a 84-year-old female who presents to the ED for chief complaint of persistent diarrhea x1 day with lower abdominal cramping.. Vitals are normal. Exam shows mild lower abdominal tenderness but otherwise benign. There was question of possible GI bleed due to observing black stools at home, however the patient did take 3 doses of Pepto-Bismol prior to this. Lab work shows normal white count and hemoglobin on the CBC. CMP remarkable for an elevated BUN of 40 and creatinine of 1.80, consistent with dehydration. Electrolytes intact. CRP is normal. Patient will be handed off to attending Dr. Devries at the time of shift change pending CT results. Ignaciobashir: Patient signed out to me pending CT abdomen and pelvis. CT was obtained revealing no acute process. Patient was informed of these findings at bedside. Patient states that she feels much better and would like to go home. She was informed that she does follow-up with her primary care physician within the next 3-5 days and return to the ED if any new or worsening symptoms develop. Patient is agreeable with this plan. She was discharged in stable condition. <Charan Devries MD - Last Filed: 07/18/24 03:10> Differential Diagnosis Differential diagnosis: Likely traveler's diarrhea, gastroenteritis and dehydration <Charan eDvries MD - Last Filed: 07/18/24 03:10> Lab Data Result diagrams: 07/18/24 01:20 07/18/24 00:00 <Juvenal Montenegro PA-C - Last Filed: 07/24/24 09:34> Labs: Lab Results 07/18/24 07/18/24 07/18/24 Range/Units 00:00 00:18 01:20 WBC 10.7 H (4.5-10.0) K/mm3 RBC 4.72 (4.2-5.4) M/mm3 Hgb 12.7 (12.0-15.0) g/dL Hct 39.8 (37.0-47.0) % MCV 84.3 (80-100) fl MCH 26.9 (26-34) pg MCHC 31.9 L (32-36) g/dl RDW 15.5 H (11.5-14.5) % Plt Count 208 (150-375) k/mm3 MPV 10.7 H (7.4-10.4) fl Immature Gran % (Auto) 0.3 (0-0.5) % Neut % (Auto) 85.4 H (45.5-73.1) % Lymph % (Auto) 7.6 L (18.3-44.2) % [place] % (Auto) 5.0 (2.6-8.5) % Eos % (Auto) 1.2 (0-4.4) % Baso % (Auto) 0.5 (0.2-1.2) % Lymph # (Auto) 0.81 L (0.9-3.2) K/mm3 [place] # (Auto) 0.5 (0.1-0.6) K/mm3 Eos # (Auto) 0.1 (0-0.3) K/mm3 Baso # (Auto) 0.1 (0.0-0.1) K/mm3 Abs Immat Gran (auto) 0.03 (0.00-0.031) K/mm3 Absolute Neuts (auto) 9.1 H (1.3-6.7) K/mm3 Absolute Nucleated RBC 0.000 (0.0-0.012) K/mm3 Nucleated RBC % 0.0 (0.0-0.2) % PT 13.9 (11.1-14.7) Seconds INR 1.0 APTT 25.4 (22.3-36.8) Seconds Sodium 135 L (137-145) mmol/L Potassium 4.9 (3.4-5.0) mmol/L Chloride 106 (98-107) mmol/L Carbon Dioxide 20 L (22-30) mmol/L Anion Gap 9 (4-12) mmol/L BUN 40 H D (7-17) mg/dL Creatinine 1.80 H (0.7-1.0) mg/dL Estim Creat Clear Calc 19 ml/min Estimated GFR 27 L (59 - ) Glucose 120 H (65-110) mg/dL Lactic Acid 1.1 (0.7-2.0) mmol/L Calcium 9.6 (8.4-10.2) mg/dL Magnesium 1.9 (1.6-2.3) mg/dL Total Bilirubin 0.6 (0.2-1.3) mg/dL Direct Bilirubin 0.0 (0-0.3) mg/dL AST 28 (14-36) U/L ALT 16 (6-35) U/L Alkaline Phosphatase 131 H (38-126) U/L C-Reactive Protein 1.0 (<1.0) mg/dL Total Protein 8.0 (6.3-8.2) g/dL Albumin 4.0 (3.5-5.1) g/dL Lipase 48 (23-300) U/L Blood Type A Positive Antibody Screen Negative <Juvenal Montenegro PA-C - Last Filed: 07/24/24 09:34> Lab Results 07/18/24 07/18/24 07/18/24 Range/Units 00:00 00:18 01:20 WBC 10.7 H (4.5-10.0) K/mm3 RBC 4.72 (4.2-5.4) M/mm3 Hgb 12.7 (12.0-15.0) g/dL Hct 39.8 (37.0-47.0) % MCV 84.3 (80-100) fl MCH 26.9 (26-34) pg MCHC 31.9 L (32-36) g/dl RDW 15.5 H (11.5-14.5) % Plt Count 208 (150-375) k/mm3 MPV 10.7 H (7.4-10.4) fl Immature Gran % (Auto) 0.3 (0-0.5) % Neut % (Auto) 85.4 H (45.5-73.1) % Lymph % (Auto) 7.6 L (18.3-44.2) % [place] % (Auto) 5.0 (2.6-8.5) % Eos % (Auto) 1.2 (0-4.4) % Baso % (Auto) 0.5 (0.2-1.2) % Lymph # (Auto) 0.81 L (0.9-3.2) K/mm3 [place] # (Auto) 0.5 (0.1-0.6) K/mm3 Eos # (Auto) 0.1 (0-0.3) K/mm3 Baso # (Auto) 0.1 (0.0-0.1) K/mm3 Abs Immat Gran (auto) 0.03 (0.00-0.031) K/mm3 Absolute Neuts (auto) 9.1 H (1.3-6.7) K/mm3 Absolute Nucleated RBC 0.000 (0.0-0.012) K/mm3 Nucleated RBC % 0.0 (0.0-0.2) % PT 13.9 (11.1-14.7) Seconds INR 1.0 APTT 25.4 (22.3-36.8) Seconds Sodium 135 L (137-145) mmol/L Potassium 4.9 (3.4-5.0) mmol/L Chloride 106 (98-107) mmol/L Carbon Dioxide 20 L (22-30) mmol/L Anion Gap 9 (4-12) mmol/L BUN 40 H D (7-17) mg/dL Creatinine 1.80 H (0.7-1.0) mg/dL Estim Creat Clear Calc 19 ml/min Estimated GFR 27 L (59 - ) Glucose 120 H (65-110) mg/dL Lactic Acid 1.1 (0.7-2.0) mmol/L Calcium 9.6 (8.4-10.2) mg/dL Magnesium 1.9 (1.6-2.3) mg/dL Total Bilirubin 0.6 (0.2-1.3) mg/dL Direct Bilirubin 0.0 (0-0.3) mg/dL AST 28 (14-36) U/L ALT 16 (6-35) U/L Alkaline Phosphatase 131 H (38-126) U/L C-Reactive Protein 1.0 (<1.0) mg/dL Total Protein 8.0 (6.3-8.2) g/dL Albumin 4.0 (3.5-5.1) g/dL Lipase 48 (23-300) U/L Blood Type A Positive Antibody Screen Negative <Charan Devries MD - Last Filed: 07/18/24 03:10> Discharge Plan Discharge Clinical Impression: Gastroenteritis <Juvenal Montenegro PA-C - Last Filed: 07/24/24 09:34> Patient Disposition: Home, Self-Care <Juvenal Montenegro PA-C - Last Filed: 07/24/24 09:34> Condition: Stable <Juvenal Montenegro PA-C - Last Filed: 07/24/24 09:34> Instructions: Antibiotic Form, Gastroenteritis (ED) <Juvenal Montenegro PA-C - Last Filed: 07/24/24 09:34> Additional Instructions: Please follow-up with your family doctor within the next 3-5 days. Return to the emergency department if any new or worsening symptoms develop. <Juvenal Montenegro PA-C - Last Filed: 07/24/24 09:34> Prescriptions: No Action Systane Balance 0.6 % drops 1 drp EACH EYE DAILY PRN (Reason: Dry Eyes) ursodiol 300 mg capsule 600 mg PO BID losartan 50 mg tablet 50 mg PO QHS Qty: 90 1RF cephalexin 500 mg capsule 500 mg PO Q12H 7 Days Qty: 14 0RF Calcium With Vitamin D3 See Rx Instructions .ROUTE .COMPLEX Rx Instructions: calcium 600 mg + vitamin D3 20 mcg BID clobetasol See Rx Instructions .ROUTE .COMPLEX Rx Instructions: four times a day during a flare up magnesium oxide 500 mg 500 mg PO DAILY nystatin 5 mg See Rx Instructions .ROUTE .COMPLEX Rx Instructions: 5 mg orally QID PRN during a flare up triamcinolone acetonide See Rx Instructions .ROUTE .COMPLEX Rx Instructions: on vaginal opening BID colestipol 1 gram tablet 1 gm PO HS allopurinol 100 mg tablet See Rx Instructions .ROUTE .COMPLEX Qty: 90 0RF Dose Instruction: Take 1 tablet by mouth once daily Rx Instructions: Take 1 tablet by mouth once daily levothyroxine 100 mcg tablet 100 mcg PO DAILY Qty: 90 1RF Anoro Ellipta 62.5-25 mcg/actuation blister with device See Rx Instructions .ROUTE .COMPLEX Qty: 60 5RF Hold Instructions: .Provider Order Dose Instruction: INHALE 1 PUFF BY MOUTH EVERY 24 HOURS Rx Instructions: INHALE 1 PUFF BY MOUTH EVERY 24 HOURS omeprazole 20 mg capsule,delayed release(DR/EC) See Rx Instructions .ROUTE .COMPLEX Qty: 180 0RF Dose Instruction: Take 1 capsule by mouth twice daily Rx Instructions: Take 1 capsule by mouth twice daily meclizine [Antivert] 25 mg tablet,chewable 25 mg PO TID Qty: 20 0RF <Juvenal Montenegro PA-C - Last Filed: 07/24/24 09:34> Follow-up/Referrals: Jose Moe MD [Primary Care Provider] - <Juvenal Montenegro PA-C - Last Filed: 07/24/24 09:34> Time of Disposition: 03:08 <Juvenal Montenegro PA-C - Last Filed: 07/24/24 09:34> 03:08 <Charan Devries MD - Last Filed: 07/18/24 03:10>
[2024-07-18 00:44] LABS: Prothrombin Time 13.9 Seconds (11.1-14.7)
[2024-07-18 00:45] LABS: Partial Thromboplastin Time 25.4 Seconds (22.3-36.8)
[2024-07-18] MEDS: ONDANSETRON INJ 4 MG/2 ML VIAL IV PUSH (01:25)
[2024-07-18] MEDS: SODIUM CHLORIDE 0.9% IV 1,000 ML 999 ML IV CONT (01:25)
[2024-07-18 01:26] LABS: Basophils Absolute Auto 0.1 K/mm3 (0.0-0.1); Basophils Percent Auto 0.5 % (0.2-1.2); Eosinophils Absolute Auto 0.1 K/mm3 (0-0.3); Eosinophils Percent Auto 1.2 % (0-4.4); Hematocrit 39.8 % (37.0-47.0); Hemoglobin 12.7 g/dL (12.0-15.0); Immature Granulocyte Absolute 0.03 K/mm3 (0.00-0.031); Immature Granulocyte Percent A 0.3 % (0-0.5); Lymphocytes Absolute Auto 0.81 K/mm3 (0.9-3.2); Lymphocytes Percent Auto 7.6 % (18.3-44.2); Mean Corpuscular HGB Conc 31.9 g/dl (32-36); Mean Corpuscular Hemoglobin 26.9 pg (26-34); Mean Corpuscular Volume 84.3 fl (80-100); Mean Platelet Volume 10.7 fl (7.4-10.4); Monocytes Absolute Auto 0.5 K/mm3 (0.1-0.6); Neutrophils Absolute Auto 9.1 K/mm3 (1.3-6.7); Neutrophils Percent Auto 85.4 % (45.5-73.1); Platelet Count Result 208 k/mm3 (150-375); Red Blood Count 4.72 M/mm3 (4.2-5.4); Red Cell Distribution Width 15.5 % (11.5-14.5); White Blood Count 10.7 K/mm3 (4.5-10.0)
[2024-07-18 01:36] LABS: Lactic Acid Reflex 1.1 mmol/L (0.7-2.0)
== END 2024-07-18 03:35 | disposition home or self-care (01) ==
PROVIDERS: Physician Assistant; Emergency Provider Emergency Medicine; PCP Family Medicine
DX: K52.9 Noninfective gastroenteritis and colitis, unspecified (principal); I48.0 Paroxysmal atrial fibrillation; E03.9 Hypothyroidism, unspecified; I12.9 Hypertensive chronic kidney disease with stage 1 through stage 4 chronic kidney disease, or unspecified chronic kidney disease; N18.30 Chronic kidney disease, stage 3 unspecified; G47.30 Sleep apnea, unspecified; M17.0 Bilateral primary osteoarthritis of knee; Z96.651 Presence of right artificial knee joint; Z86.711 Personal history of pulmonary embolism; Z87.891 Personal history of nicotine dependence; Z90.710 Acquired absence of both cervix and uterus; Z90.49 Acquired absence of other specified parts of digestive tract; Z98.49 Cataract extraction status, unspecified eye; Z79.899 Other long term (current) drug therapy
CPT/HCPCS: 36415; 74176; 80053; 82248; 83605; 83690; 83735; 85025; 85610; 85730; 86140; 86850; 86900; 86901; 96361; 96374; 99284; J2405; J7030

== ENCOUNTER 2024-07-18 10:29 | Emergency (ER) | payer MEDICARE, SELFPAY ==
[2024-07-18 10:46] VITALS: BP 96/64; PULSE 80; RESP 16; TEMP 37; O2SAT 98
--- NOTE | 2024-07-18 13:07 | ED_ITS ---
HPI - Nausea/Vomiting/Diarrhea General Chief complaint: Nausea/Vomiting/Diarrhea <Leatha Conti APRN - Last Filed: 07/18/24 13:17> Stated complaint: diarrhea with blood. <Leatha Conti APRN - Last Filed: 07/18/24 13: 17> Time Seen by Provider: 07/18/24 12:55 <Leatha Conti APRN - Last Filed: 07/18/24 13:17> Focused HPI: Patient is an 84-year-old female who presents to the ER with 3 episodes of huge bloody diarrhea. She reports she was here in the ER last night and they told me I did not have any rectal bleeding. Patient reports her abdominal pain has continued and she has brought in a pair of her underwear with her bloody diarrhea on it. 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 Patient denies chest pain, shortness of breath, fevers. GENERAL: Well-appearing, well-nourished, and in no acute distress. HEAD: Normocephalic, atraumatic. CHEST: Clear to auscultation. ?No respiratory distress. HEART: Regular rate and rhythm.? NEURO: ?Alert and oriented x3. Patient screened in triage and initial orders placed.? ?Additional care and disposition to be based upon?diagnostic testing and treatment. <Leatha Conti APRN - Last Filed: 07/18/24 13:17> History of Present Illness HPI Narrative: 84-year-old female presenting with diarrhea. States she was here last night and was able to go home. She woke from sleep with another episode of diarrhea. States that it had red stuff that was concerning for blood. Complains of mild lower abdominal pain but no other complaints. <Roxane Deleon MD - Last Filed: 07/21/24 13:26> Related Data Home medications: Home Medications Medication Instructions Recorded Confirmed colestipol 1 gram tablet 1 gm PO HS 08/07/19 04/15/24 ursodiol 300 mg capsule 600 mg PO BID 07/17/20 04/15/24 Calcium With Vitamin D3 See Rx Instructions .Route .COMPLEX 02/27/22 04/15/24 clobetasol See Rx Instructions .Route .COMPLEX 02/27/22 04/15/24 magnesium oxide 500 mg PO DAILY 02/27/22 04/15/24 nystatin See Rx Instructions .Route .COMPLEX 02/27/22 04/15/24 triamcinolone acetonide See Rx Instructions .Route .COMPLEX 02/27/22 04/15/24 propylene glycol 0.6 % eye drops 1 drp EACH EYE DAILY PRN Dry Eyes 08/02/23 04/15/24 (Systane Balance) <Leatha Conti APRN - Last Filed: 07/18/24 13:17> Allergies/Adverse reactions: Allergies Allergy/AdvReac Type Severity Reaction Status Date / Time shrimp Allergy Mild nausea, Verified 05/03/24 11:08 vomiting prednisone Allergy Mild Dizziness Uncoded 05/03/24 11:08 Tramadol Allergy Mild Dizziness Uncoded 05/03/24 11:08 SHELLFISH Allergy Unknown N&V Uncoded 05/03/24 11:08 <Leatha Conti APRN - Last Filed: 07/18/24 13:17> Review of Systems Review of Systems: All systems reviewed & are unremarkable except as noted in HPI and below <Roxane Deleon MD - Last Filed: 07/21/24 13:26> [facility] Past Medical History Medical History: Medical History Abnormal barium swallow Adult hypothyroidism Arthritis of knee, left Arthritis of knee, right Atrial fibrillation with RVR Benign essential hypertension Carpal tunnel syndrome Chronic diarrhea CKD (chronic kidney disease), stage III Cramp of toe Fatigue Hiatal hernia Hypertrophic lichen planus of vulva Leg cramping Numbness of toes Paroxysmal atrial fibrillation Personal history of gout Plantar fasciitis Primary biliary cholangitis Pulmonary embolism Sleep apnea, unspecified Vertigo <Leatha Conti APRN - Last Filed: 07/18/24 13:17> Surgical History Surgical History: Surgical History H/O: hysterectomy History of bladder surgery History of bladder suspension procedure History of bowel resection History of carpal tunnel surgery History of cataract surgery History of cholecystectomy History of colon resection History of cystoscopy History of total right knee replacement <Leatha Conti, BIRTH CERTIFICATE CLERK - Last Filed: 07/18/24 13:17> Family History Family History: Family History Sibling Family history of rheumatoid arthritis Family history of heart disease in male family member before age 55 Family history of obesity Hypertension Family history of diabetes mellitus in first degree relative Mother Family history of osteoarthritis Family history of congestive heart failure Hypertension Family history of arthritis Father Cerebrovascular accident Family history of diabetes mellitus in first degree relative Other Diabetes mellitus Family history of cardiovascular disease <Leatha Conti, BIRTH CERTIFICATE CLERK - Last Filed: 07/18/24 13:17> Social History Social History: Social History Smoking packs per day: 2.5 Smoking cigarettes per day: 50.0 Years smoked: 35 Smoking pack-years: 87.50 Smoking status: Former smoker Tobacco type: cigarettes Second hand tobacco smoke exposure: No Smoking end date: 08/28/87 Alcohol intake: never Substance use: never Substance use type: does not use Do You Feel Safe in your Home?: Yes Lack of Transportation: No Lack of Food: Never True Current Housing: I Have Housing Concerned About Future Housing: Decline to Answer Difficulty Paying Gas/Electric Bills: Decline to Answer Difficulty Paying for Meds: Decline to Answer Currently Unemployed: Decline to Answer Education: Decline to Answer Difficulty w/ Childcare or Family Care: Decline to Answer Living arrangements: alone Occupation/Education: retired 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 EYES: PERRLA and EOMI. ENT: Mucous membranes dry NECK: Supple. CHEST: No respiratory distress. HEART: Regular rate and rhythm ABDOMEN: Soft, nontender, nondistended STOOL: dark brown, guiaic negative EXTREMITIES: Normal range of motion SKIN: Warm, dry, no rash. NEURO: No focal deficits. Alert and oriented x3. PSYCH: Normal mood and affect. <Roxane Deleon MD - Last Filed: 07/21/24 13:26> Course Vital Signs Vital signs: Vital Signs Temperature 98.6 F 07/18/24 10:46 Pulse Rate 80 07/18/24 10:46 Respiratory Rate 16 07/18/24 10:46 Blood Pressure 96/64 L 07/18/24 10:46 Pulse Oximetry 98 07/18/24 10:46 Temperature 98.6 F 07/18/24 10:46 Pulse Rate 82 07/18/24 20:15 Respiratory Rate 16 07/18/24 20:15 Blood Pressure 164/71 H 07/18/24 20:15 Pulse Oximetry 99 07/18/24 20:15 <Leatha Conti APRN - Last Filed: 07/18/24 13:17> Vital Signs Temperature 98.6 F 07/18/24 10:46 Pulse Rate 80 07/18/24 10:46 Respiratory Rate 16 07/18/24 10:46 Blood Pressure 96/64 L 07/18/24 10:46 Pulse Oximetry 98 07/18/24 10:46 Temperature 98.6 F 07/18/24 10:46 Pulse Rate 82 07/18/24 20:15 Respiratory Rate 16 07/18/24 20:15 Blood Pressure 164/71 H 07/18/24 20:15 Pulse Oximetry 99 07/18/24 20:15 <Roxane Deleon MD - Last Filed: 07/21/24 13:26> MDM - Nausea/Vomiting/Diarrhea MDM Narrative Medical decision making narrative: 84-year-old female presenting with diarrhea. Vitals are stable. Exam remarkable for the above. She was actually just here last night was able to go home. Her abdomen is completely soft and benign, she denies any pain. Do not feel imaging again is warranted. Blood work with stable CKD. Patient had small volume diarrhea, this was sent for stool testing. Negative for C diff. UA is concerning for UTI. Starting the patient on Keflex and feel she is safe for outpatient management. She is comfortable with this plan. Discussed appropriate supportive care and return precautions. Recommended she start some probiotics and drink plenty of hydrating fluids. Discharged in stable condition. <Roxane Deleon MD - Last Filed: 07/21/24 13:26> Differential Diagnosis Differential diagnosis: Likely food poisoning, gastroenteritis, clostridium difficile infection and dehydration <Roxane Deleon MD - Last Filed: 07/21/24 13:26> Medical Records Attestation: I reviewed the patient's medical records. <Roxane Deleon MD - Last Filed: 07/21/24 13:26> Lab Data Attestation: I reviewed the patient's lab results. <Roxane Deleon MD - Last Filed: 07/21/24 13:26> Result diagrams: 07/18/24 15:12 07/18/24 14:33 <Leatha Conti APRN - Last Filed: 07/18/24 13:17> Labs: Lab Results 07/18/24 07/18/24 07/18/24 Range/Units 14:33 15:12 17:09 WBC 5.7 (4.5-10.0) K/mm3 RBC 4.15 L (4.2-5.4) M/mm3 Hgb 11.2 L (12.0-15.0) g/dL Hct 35.7 L (37.0-47.0) % MCV 86.0 (80-100) fl MCH 27.0 (26-34) pg MCHC 31.4 L (32-36) g/dl RDW 15.6 H (11.5-14.5) % Plt Count 178 (150-375) k/mm3 MPV 10.4 (7.4-10.4) fl Immature Gran % (Auto) 0.5 (0-0.5) % Neut % (Auto) 68.1 (45.5-73.1) % Lymph % (Auto) 19.3 (18.3-44.2) % [place] % (Auto) 9.2 H (2.6-8.5) % Eos % (Auto) 2.4 (0-4.4) % Baso % (Auto) 0.5 (0.2-1.2) % Lymph # (Auto) 1.11 (0.9-3.2) K/mm3 [place] # (Auto) 0.5 (0.1-0.6) K/mm3 Eos # (Auto) 0.1 (0-0.3) K/mm3 Baso # (Auto) 0.0 (0.0-0.1) K/mm3 Abs Immat Gran (auto) 0.03 (0.00-0.031) K/mm3 Absolute Neuts (auto) 3.9 (1.3-6.7) K/mm3 Absolute Nucleated RBC 0.000 (0.0-0.012) K/mm3 Nucleated RBC % 0.0 (0.0-0.2) % PT 15.1 H (11.1-14.7) Seconds INR 1.1 APTT 27.9 (22.3-36.8) Seconds Sodium 138 (137-145) mmol/L Potassium 4.3 (3.4-5.0) mmol/L Chloride 110 H (98-107) mmol/L Carbon Dioxide 21 L (22-30) mmol/L Anion Gap 7 (4-12) mmol/L BUN 40 H (7-17) mg/dL Creatinine 1.70 H (0.7-1.0) mg/dL Estim Creat Clear Calc 20 ml/min Estimated GFR 29 L (59 - ) Glucose 88 (65-110) mg/dL Calcium 9.1 (8.4-10.2) mg/dL Total Bilirubin 0.5 (0.2-1.3) mg/dL AST 29 (14-36) U/L ALT 18 (6-35) U/L Alkaline Phosphatase 97 (38-126) U/L Total Protein 7.0 (6.3-8.2) g/dL Albumin 3.4 L (3.5-5.1) g/dL Lipase 23 (23-300) U/L Urine Color (Yellow) Urine Appearance (Clear) Urine pH (5.0-9.0) Ur Specific [place] (1.001-1.035) Urine Protein (Negative) mg/dL Urine Glucose (UA) (Negative) mg/dL Urine Ketones (Negative) mg/dL Ur Blood (Man) (Negative) Urine Nitrate (Negative) Urine Bilirubin (Negative) Urine Urobilinogen (<2.0) mg/dL Leukocyte Esterase Rfl (Negative) SUSHILA/UL Urine RBC (0-2) /hpf Urine WBC (0-3) /hpf Ur Squamous Epith Cells (Few) /hpf Urine Bacteria /hpf Urine Casts C. difficile (PCR) Negative (NEGATIVE) 07/18/24 Range/Units 20:07 WBC (4.5-10.0) K/mm3 RBC (4.2-5.4) M/mm3 Hgb (12.0-15.0) g/dL Hct (37.0-47.0) % MCV (80-100) fl MCH (26-34) pg MCHC (32-36) g/dl RDW (11.5-14.5) % Plt Count (150-375) k/mm3 MPV (7.4-10.4) fl Immature Gran % (Auto) (0-0.5) % Neut % (Auto) (45.5-73.1) % Lymph % (Auto) (18.3-44.2) % [place] % (Auto) (2.6-8.5) % Eos % (Auto) (0-4.4) % Baso % (Auto) (0.2-1.2) % Lymph # (Auto) (0.9-3.2) K/mm3 [place] # (Auto) (0.1-0.6) K/mm3 Eos # (Auto) (0-0.3) K/mm3 Baso # (Auto) (0.0-0.1) K/mm3 Abs Immat Gran (auto) (0.00-0.031) K/mm3 Absolute Neuts (auto) (1.3-6.7) K/mm3 Absolute Nucleated RBC (0.0-0.012) K/mm3 Nucleated RBC % (0.0-0.2) % PT (11.1-14.7) Seconds INR APTT (22.3-36.8) Seconds Sodium (137-145) mmol/L Potassium (3.4-5.0) mmol/L Chloride (98-107) mmol/L Carbon Dioxide (22-30) mmol/L Anion Gap (4-12) mmol/L BUN (7-17) mg/dL Creatinine (0.7-1.0) mg/dL Estim Creat Clear Calc ml/min Estimated GFR (59 - ) Glucose (65-110) mg/dL Calcium (8.4-10.2) mg/dL Total Bilirubin (0.2-1.3) mg/dL AST (14-36) U/L ALT (6-35) U/L Alkaline Phosphatase (38-126) U/L Total Protein (6.3-8.2) g/dL Albumin (3.5-5.1) g/dL Lipase (23-300) U/L Urine Color Yellow (Yellow) Urine Appearance Clear (Clear) Urine pH 5.5 (5.0-9.0) Ur Specific [place] 1.015 (1.001-1.035) Urine Protein Negative (Negative) mg/dL Urine Glucose (UA) Negative (Negative) mg/dL Urine Ketones Trace H (Negative) mg/dL Ur Blood (Man) Negative (Negative) Urine Nitrate Negative (Negative) Urine Bilirubin Negative (Negative) Urine Urobilinogen 0.2 (<2.0) mg/dL Leukocyte Esterase Rfl 2+ H (Negative) SUSHILA/UL Urine RBC 0-2 (0-2) /hpf Urine WBC 51-100 H (0-3) /hpf Ur Squamous Epith Cells None seen (Few) /hpf Urine Bacteria None seen /hpf Urine Casts 0-2 C. difficile (PCR) (NEGATIVE) <Leatha Conti, BIRTH CERTIFICATE CLERK - Last Filed: 07/18/24 13:17> Lab Results 07/18/24 07/18/24 07/18/24 Range/Units 14:33 15:12 17:09 WBC 5.7 (4.5-10.0) K/mm3 RBC 4.15 L (4.2-5.4) M/mm3 Hgb 11.2 L (12.0-15.0) g/dL Hct 35.7 L (37.0-47.0) % MCV 86.0 (80-100) fl MCH 27.0 (26-34) pg MCHC 31.4 L (32-36) g/dl RDW 15.6 H (11.5-14.5) % Plt Count 178 (150-375) k/mm3 MPV 10.4 (7.4-10.4) fl Immature Gran % (Auto) 0.5 (0-0.5) % Neut % (Auto) 68.1 (45.5-73.1) % Lymph % (Auto) 19.3 (18.3-44.2) % [place] % (Auto) 9.2 H (2.6-8.5) % Eos % (Auto) 2.4 (0-4.4) % Baso % (Auto) 0.5 (0.2-1.2) % Lymph # (Auto) 1.11 (0.9-3.2) K/mm3 [place] # (Auto) 0.5 (0.1-0.6) K/mm3 Eos # (Auto) 0.1 (0-0.3) K/mm3 Baso # (Auto) 0.0 (0.0-0.1) K/mm3 Abs Immat Gran (auto) 0.03 (0.00-0.031) K/mm3 Absolute Neuts (auto) 3.9 (1.3-6.7) K/mm3 Absolute Nucleated RBC 0.000 (0.0-0.012) K/mm3 Nucleated RBC % 0.0 (0.0-0.2) % PT 15.1 H (11.1-14.7) Seconds INR 1.1 APTT 27.9 (22.3-36.8) Seconds Sodium 138 (137-145) mmol/L Potassium 4.3 (3.4-5.0) mmol/L Chloride 110 H (98-107) mmol/L Carbon Dioxide 21 L (22-30) mmol/L Anion Gap 7 (4-12) mmol/L BUN 40 H (7-17) mg/dL Creatinine 1.70 H (0.7-1.0) mg/dL Estim Creat Clear Calc 20 ml/min Estimated GFR 29 L (59 - ) Glucose 88 (65-110) mg/dL Calcium 9.1 (8.4-10.2) mg/dL Total Bilirubin 0.5 (0.2-1.3) mg/dL AST 29 (14-36) U/L ALT 18 (6-35) U/L Alkaline Phosphatase 97 (38-126) U/L Total Protein 7.0 (6.3-8.2) g/dL Albumin 3.4 L (3.5-5.1) g/dL Lipase 23 (23-300) U/L Urine Color (Yellow) Urine Appearance (Clear) Urine pH (5.0-9.0) Ur Specific [place] (1.001-1.035) Urine Protein (Negative) mg/dL Urine Glucose (UA) (Negative) mg/dL Urine Ketones (Negative) mg/dL Ur Blood (Man) (Negative) Urine Nitrate (Negative) Urine Bilirubin (Negative) Urine Urobilinogen (<2.0) mg/dL Leukocyte Esterase Rfl (Negative) SUSHILA/UL Urine RBC (0-2) /hpf Urine WBC (0-3) /hpf Ur Squamous Epith Cells (Few) /hpf Urine Bacteria /hpf Urine Casts C. difficile (PCR) Negative (NEGATIVE) 07/18/24 Range/Units 20:07 WBC (4.5-10.0) K/mm3 RBC (4.2-5.4) M/mm3 Hgb (12.0-15.0) g/dL Hct (37.0-47.0) % MCV (80-100) fl MCH (26-34) pg MCHC (32-36) g/dl RDW (11.5-14.5) % Plt Count (150-375) k/mm3 MPV (7.4-10.4) fl Immature Gran % (Auto) (0-0.5) % Neut % (Auto) (45.5-73.1) % Lymph % (Auto) (18.3-44.2) % [place] % (Auto) (2.6-8.5) % Eos % (Auto) (0-4.4) % Baso % (Auto) (0.2-1.2) % Lymph # (Auto) (0.9-3.2) K/mm3 [place] # (Auto) (0.1-0.6) K/mm3 Eos # (Auto) (0-0.3) K/mm3 Baso # (Auto) (0.0-0.1) K/mm3 Abs Immat Gran (auto) (0.00-0.031) K/mm3 Absolute Neuts (auto) (1.3-6.7) K/mm3 Absolute Nucleated RBC (0.0-0.012) K/mm3 Nucleated RBC % (0.0-0.2) % PT (11.1-14.7) Seconds INR APTT (22.3-36.8) Seconds Sodium (137-145) mmol/L Potassium (3.4-5.0) mmol/L Chloride (98-107) mmol/L Carbon Dioxide (22-30) mmol/L Anion Gap (4-12) mmol/L BUN (7-17) mg/dL Creatinine (0.7-1.0) mg/dL Estim Creat Clear Calc ml/min Estimated GFR (59 - ) Glucose (65-110) mg/dL Calcium (8.4-10.2) mg/dL Total Bilirubin (0.2-1.3) mg/dL AST (14-36) U/L ALT (6-35) U/L Alkaline Phosphatase (38-126) U/L Total Protein (6.3-8.2) g/dL Albumin (3.5-5.1) g/dL Lipase (23-300) U/L Urine Color Yellow (Yellow) Urine Appearance Clear (Clear) Urine pH 5.5 (5.0-9.0) Ur Specific [place] 1.015 (1.001-1.035) Urine Protein Negative (Negative) mg/dL Urine Glucose (UA) Negative (Negative) mg/dL Urine Ketones Trace H (Negative) mg/dL Ur Blood (Man) Negative (Negative) Urine Nitrate Negative (Negative) Urine Bilirubin Negative (Negative) Urine Urobilinogen 0.2 (<2.0) mg/dL Leukocyte Esterase Rfl 2+ H (Negative) SUSHILA/UL Urine RBC 0-2 (0-2) /hpf Urine WBC 51-100 H (0-3) /hpf Ur Squamous Epith Cells None seen (Few) /hpf Urine Bacteria None seen /hpf Urine Casts 0-2 C. difficile (PCR) (NEGATIVE) <Roxane Deleon MD - Last Filed: 07/21/24 13:26> Critical Care Time Critical Care Time Critical Care Time: No <Roxane Deleon MD - Last Filed: 07/21/24 13:26> Discharge Plan Discharge Clinical Impression: UTI (urinary tract infection), Diarrhea <Leatha Conti APRN - Last Filed: 07/18/24 13:17> Patient Disposition: Home, Self-Care <Leatha Conti APRN - Last Filed: 07/18/24 13:17> Condition: Stable <Leatha Conti APRN - Last Filed: 07/18/24 13:17> Instructions: Antibiotic Form, Urinary Tract Infection in Women (DC), Acute Diarrhea (ED) <Leatha Conti, BIRTH CERTIFICATE CLERK - Last Filed: 07/18/24 13:17> Additional Instructions: We are treating you with antibiotics for a bladder infection. Please take these as prescribed. We recommend taking probiotics as well. You may use Imodium as needed for the diarrhea. Please follow-up closely with your PCP. If your symptoms worsen or other concerning symptoms arise, please return to the ER. <Leatha Conti APRN - Last Filed: 07/18/24 13:17> Prescriptions: New cephalexin 500 mg capsule 500 mg PO Q12H 7 Days Qty: 14 0RF No Action Systane Balance 0.6 % drops 1 drp EACH EYE DAILY PRN (Reason: Dry Eyes) ursodiol 300 mg capsule 600 mg PO BID losartan 50 mg tablet 50 mg PO QHS Qty: 90 1RF Calcium With Vitamin D3 See Rx Instructions .ROUTE .COMPLEX Rx Instructions: calcium 600 mg + vitamin D3 20 mcg BID clobetasol See Rx Instructions .ROUTE .COMPLEX Rx Instructions: four times a day during a flare up magnesium oxide 500 mg 500 mg PO DAILY nystatin 5 mg See Rx Instructions .ROUTE .COMPLEX Rx Instructions: 5 mg orally QID PRN during a flare up triamcinolone acetonide See Rx Instructions .ROUTE .COMPLEX Rx Instructions: on vaginal opening BID colestipol 1 gram tablet 1 gm PO HS allopurinol 100 mg tablet See Rx Instructions .ROUTE .COMPLEX Qty: 90 0RF Dose Instruction: Take 1 tablet by mouth once daily Rx Instructions: Take 1 tablet by mouth once daily levothyroxine 100 mcg tablet 100 mcg PO DAILY Qty: 90 1RF Anoro Ellipta 62.5-25 mcg/actuation blister with device See Rx Instructions .ROUTE .COMPLEX Qty: 60 5RF Hold Instructions: .Provider Order Dose Instruction: INHALE 1 PUFF BY MOUTH EVERY 24 HOURS Rx Instructions: INHALE 1 PUFF BY MOUTH EVERY 24 HOURS omeprazole 20 mg capsule,delayed release(DR/EC) See Rx Instructions .ROUTE .COMPLEX Qty: 180 0RF Dose Instruction: Take 1 capsule by mouth twice daily Rx Instructions: Take 1 capsule by mouth twice daily meclizine [Antivert] 25 mg tablet,chewable 25 mg PO TID Qty: 20 0RF <Leatha Conti APRN - Last Filed: 07/18/24 13:17> Follow-up/Referrals: Jose Moe MD [Primary Care Provider] - Elena Raymond APRN [Advanced Practice Nurse] - <Leatha Conti APRN - Last Filed: 07/18/24 13:17>
[2024-07-18 14:13] VITALS: BP 121/68; PULSE 78; RESP 20; O2SAT 97
[2024-07-18] MEDS: SODIUM CHLORIDE 0.9% IV 1,000 ML 999 ML IV CONT (14:30)
[2024-07-18 15:00] LABS: Alanine Aminotransferase 18 U/L (6-35); Albumin Level 3.4 g/dL (3.5-5.1); Alkaline Phosphatase 97 U/L (38-126); Anion Gap 7 mmol/L (4-12); Aspartate Amino Transferase 29 U/L (14-36); Bilirubin,Total 0.5 mg/dL (0.2-1.3); Blood Urea Nitrogen 40 mg/dL (7-17); Calcium 9.1 mg/dL (8.4-10.2); Carbon Dioxide 21 mmol/L (22-30); Chloride 110 mmol/L (98-107); Estimated CRCL calculation 20 ml/min; Estimated Glomerular Filt Rate 29; Glucose 88 mg/dL (65-110); Lipase 23 U/L (23-300); Potassium 4.3 mmol/L (3.4-5.0); Sodium 138 mmol/L (137-145)
[2024-07-18 15:01] VITALS: BP 128/57; PULSE 83; RESP 15; O2SAT 97
[2024-07-18 15:17] LABS: Basophils Percent Auto 0.5 % (0.2-1.2); Eosinophils Absolute Auto 0.1 K/mm3 (0-0.3); Eosinophils Percent Auto 2.4 % (0-4.4); Hematocrit 35.7 % (37.0-47.0); Hemoglobin 11.2 g/dL (12.0-15.0); Immature Granulocyte Absolute 0.03 K/mm3 (0.00-0.031); Immature Granulocyte Percent A 0.5 % (0-0.5); Lymphocytes Absolute Auto 1.11 K/mm3 (0.9-3.2); Lymphocytes Percent Auto 19.3 % (18.3-44.2); Mean Corpuscular HGB Conc 31.4 g/dl (32-36); Mean Platelet Volume 10.4 fl (7.4-10.4); Monocytes Absolute Auto 0.5 K/mm3 (0.1-0.6); Monocytes Percent Auto 9.2 % (2.6-8.5); Neutrophils Absolute Auto 3.9 K/mm3 (1.3-6.7); Neutrophils Percent Auto 68.1 % (45.5-73.1); Platelet Count Result 178 k/mm3 (150-375); Red Blood Count 4.15 M/mm3 (4.2-5.4); Red Cell Distribution Width 15.6 % (11.5-14.5); White Blood Count 5.7 K/mm3 (4.5-10.0)
[2024-07-18 15:30] VITALS: BP 126/57; PULSE 87; RESP 19; O2SAT 95
[2024-07-18 15:45] LABS: INR 1.1; Prothrombin Time 15.1 Seconds (11.1-14.7)
[2024-07-18 15:46] LABS: Partial Thromboplastin Time 27.9 Seconds (22.3-36.8)
[2024-07-18 16:15] VITALS: BP 117/50; PULSE 83; RESP 15; O2SAT 96
[2024-07-18 18:02] LABS: Toxigenic C. Diff NEGATIVE (NEGATIVE)
--- NOTE | 2024-07-18 19:36 | PC.NURSE ---
Assumed care of pt after receiving report from VAISHALI Kirkland. @ 501 No EKG needed per KETTY Deleon
[2024-07-18] MEDS: LOPERAMIDE HCL 2 MG CAPSULE 4 MG PO (19:49)
[2024-07-18 20:15] VITALS: BP 164/71; PULSE 82; RESP 16; O2SAT 99
[2024-07-18 20:32] LABS: Add Urine Microscopic? YES; Appearance Urine Clear (Clear); Bacteria Urine None Seen /hpf; Bilirubin Urine Negative (Negative); Blood Urine Negative (Negative); Color Urine Yellow (Yellow); Glucose Urine UA Negative (Negative); Ketones Urine Trace mg/dL (Negative); Leukocyte Esterase Ur 2+ LEU/UL (Negative); Nitrate Urine Negative (Negative); Non Pathogenic Casts 0-2; Protein Urine Negative (Negative); RBC Urine 0-2 /hpf (0-2); Specific Grav Ur 1.015 (1.001-1.035); Squamous Epithelial Cell Urine None Seen /hpf (Few); Urobilinogen Urine 0.2 mg/dL (<2.0); WBC Urine 51-100 /hpf (0-3); pH Urine 5.5 (5.0-9.0)
[2024-07-18] MEDS: CEPHALEXIN 500 MG CAPSULE PO (21:20)
== END 2024-07-18 21:30 | disposition home or self-care (01) ==
PROVIDERS: Registered Nurse; Emergency Provider Emergency Medicine; PCP Family Medicine
DX: R19.7 Diarrhea, unspecified (principal); N39.0 Urinary tract infection, site not specified; J44.9 Chronic obstructive pulmonary disease, unspecified; I12.9 Hypertensive chronic kidney disease with stage 1 through stage 4 chronic kidney disease, or unspecified chronic kidney disease; N18.30 Chronic kidney disease, stage 3 unspecified; I48.0 Paroxysmal atrial fibrillation; E03.9 Hypothyroidism, unspecified; M17.0 Bilateral primary osteoarthritis of knee; G47.30 Sleep apnea, unspecified; Z96.651 Presence of right artificial knee joint; Z86.711 Personal history of pulmonary embolism; Z87.891 Personal history of nicotine dependence; Z90.710 Acquired absence of both cervix and uterus; Z90.49 Acquired absence of other specified parts of digestive tract; Z98.49 Cataract extraction status, unspecified eye; Z79.899 Other long term (current) drug therapy
CPT/HCPCS: 36415; 80053; 81001; 83690; 85025; 85610; 85730; 87045; 87086; 87427; 87449; 87493; 96360; 99283; A9270; J7030

== ENCOUNTER 2024-08-24 10:19 | Emergency (ER) | payer MEDICARE, SELFPAY ==
[2024-08-24 10:33] VITALS: BP 102/68; PULSE 110; RESP 20; TEMP 35.8; O2SAT 100
--- NOTE | 2024-08-24 10:37 | ED_ITS ---
HPI - URI/Sore Throat General Chief Complaint: Upper Respiratory Infection Stated Complaint: Cough Time Seen by Provider: 08/24/24 10:37 Source: patient, RN notes reviewed and old records reviewed Mode of arrival: ambulatory Limitations: no limitations History of Present Illness HPI Narrative: Patient presents with complaints of cough and runny nose. She reports symptoms have been present for 3 days. She denies sick contacts. She denies any fever, chills, sweats. She reports that she has been taking Robitussin for her symptoms. She reports that cough is minimally productive. Denies any shortness of breath or wheezing. No other concerns or complaints today. Related Data Home Medications ?Medication ?Instructions ?Recorded ?Confirmed ?Last Taken ?Type ursodiol 300 mg capsule 600 mg PO BID 07/17/20 08/24/24 02/26/22 History Calcium With Vitamin D3 See Rx Instructions .Route .COMPLEX 02/27/22 08/24/24 02/26/22 History clobetasol See Rx Instructions .Route .COMPLEX 02/27/22 08/14/24 02/26/22 History magnesium oxide 500 mg PO DAILY 02/27/22 08/24/24 02/26/22 History nystatin See Rx Instructions .Route .COMPLEX 02/27/22 08/14/24 02/26/22 History triamcinolone acetonide See Rx Instructions .Route .COMPLEX 02/27/22 08/14/24 02/26/22 History propylene glycol 0.6 % eye drops 1 drp EACH EYE DAILY PRN Dry Eyes 08/02/23 1 10/25/23 Unknown History (Systane Balance) lactobacillus combo no.11 15 1 cap PO DAILY 08/14/24 08/24/24 Unknown History billion cell sprinkle capsule (Probiotic) meclizine 25 mg chewable tablet 25 mg PO TID PRN dizziness 08/14/24 08/24/24 Unknown History (Antivert) Allergies Allergy/AdvReac Type Severity Reaction Status Date / Time shrimp Allergy Mild nausea, Verified 08/24/24 10:56 vomiting prednisone Allergy Mild Dizziness Uncoded 08/14/24 08:51 Tramadol Allergy Mild Dizziness Uncoded 08/14/24 08:51 SHELLFISH Allergy Unknown N&V Uncoded 08/14/24 08:51 Review of Systems Review of Systems: All systems reviewed & are unremarkable except as noted in HPI and below Constitutional: Constitutional: Reports no additional constitutional complaints ENT: Reports system reviewed and no additional complaints, except as documented and Reports nasal discharge Cardiovascular: Cardiovascular: Reports no additional cardiovascular complaints Respiratory: Respiratory: Reports no additional respiratory complaints and Reports cough Gastrointestinal: Gastrointestinal: Reports no additional gastrointestinal complaints [facility] Past Medical History Medical History (Reviewed 08/14/24 @ 08:56 by Mary Jo Ayon, [facility]) Abnormal barium swallow Leg cramping Cramp of toe Numbness of toes Plantar fasciitis Arthritis of knee, right Arthritis of knee, left Chronic diarrhea Paroxysmal atrial fibrillation Vertigo Hiatal hernia Hypertrophic lichen planus of vulva Pulmonary embolism Atrial fibrillation with RVR CKD (chronic kidney disease), stage III Carpal tunnel syndrome Adult hypothyroidism Benign essential hypertension Fatigue Personal history of gout Primary biliary cholangitis Sleep apnea, unspecified Surgical History Surgical History History of cystoscopy History of cataract surgery History of carpal tunnel surgery History of bladder suspension procedure History of bowel resection History of bladder surgery History of colon resection History of cholecystectomy H/O: hysterectomy History of total right knee replacement Family History Family History Sibling Family history of rheumatoid arthritis Family history of heart disease in male family member before age 55 Family history of obesity Hypertension Family history of diabetes mellitus in first degree relative Mother Family history of osteoarthritis Family history of congestive heart failure Hypertension Family history of arthritis Father Cerebrovascular accident Family history of diabetes mellitus in first degree relative Other Diabetes mellitus Family history of cardiovascular disease Social History Social History Smoking packs per day: 2.5 Smoking cigarettes per day: 50.0 Years smoked: 35 Smoking pack-years: 87.50 Smoking status: Former smoker Tobacco type: cigarettes Second hand tobacco smoke exposure: No Smoking end date: 08/28/87 Alcohol intake: never Substance use: never Substance use type: does not use Do You Feel Safe in your Home?: Yes Lack of Transportation: No Lack of Food: Never True Current Housing: I Have Housing Concerned About Future Housing: Decline to Answer Difficulty Paying Gas/Electric Bills: Decline to Answer Difficulty Paying for Meds: Decline to Answer Currently Unemployed: Decline to Answer Education: Decline to Answer Difficulty w/ Childcare or Family Care: Decline to Answer Living arrangements: alone Occupation/Education: retired 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 There is no relevant family history pertinent to the patient complaint. Exam Const: General: cooperative, no acute distress, alert and awake Orientation/consciousness: oriented to person, oriented to place and oriented to time HENMT: Head: normal to inspection Resp: Effort & Inspection: normal respiratory effort and able to speak in complete sentences Auscultation: clear to auscultation bilaterally, no crackles, no rales, no rhonchi and no wheezes Cardio: Palpation: normal PMI Rate: regular rate Rhythm: regular rhythm Heart sounds: S1 normal heart sound present and S2 normal heart sound present Neuro: General: oriented to person, oriented to place and oriented to time Cranial nerves: Yes CN's II-XII intact bilaterally Psych: Appearance: grossly normal Thought process: Normal thought process present Insight: Good insight present (Psych) Judgement: Good judgement present (Psych) Course Course Level of Care: Express Care Visit Vital Signs Vital signs: Vital Signs Temperature 96.5 F L 08/24/24 10:33 Pulse Rate 110 H 08/24/24 10:33 Respiratory Rate 20 08/24/24 10:33 Blood Pressure 102/68 08/24/24 10:33 Pulse Oximetry 100 08/24/24 10:33 Oxygen Delivery Room Air 08/24/24 10:33 Temperature 96.5 F L 08/24/24 10:33 Pulse Rate 110 H 08/24/24 10:33 Respiratory Rate 20 08/24/24 10:33 Blood Pressure 102/68 08/24/24 10:33 Pulse Oximetry 100 08/24/24 10:33 Oxygen Delivery Room Air 08/24/24 10:33 Reviewed MDM - URI/Sore Throat MDM Narrative Medical decision making narrative: Negative flu, negative COVID. Reassuring physical exam. Heart rate of 80 on auscultation, regular. Symptoms likely viral in origin. Treat symptomatically Discharge instructions reviewed with patient, as well as provided in writing per nursing staff. The instructions also include specific and strict return/GO TO THE ER as well as f/u information. All questions have been answered, and the patient deny any further questions with discharge and discharge plan. Some parts of this dictation were generated by voice recognition software and may contain typographical and/or grammatical inaccuracies. Differential Diagnosis Differential diagnosis: Likely upper respiratory infection, otitis media, sinusitis, viral infection and influenza Medical Records Attestation: I reviewed the patient's medical records. Discharge Plan Discharge Clinical Impression: Viral infection Patient Disposition: Home, Self-Care Condition: Stable Instructions: Antibiotic Form, Cold Symptoms (ED) Additional Instructions: Take medications as prescribed. Follow with primary care provider. Emergency department for new or worse symptoms Patient Language: Divehi Prescriptions: New benzonatate 200 mg capsule 200 mg PO TID PRN (Reason: cough) Qty: 30 0RF No Action Systane Balance 0.6 % drops 1 drp EACH EYE DAILY PRN (Reason: Dry Eyes) ursodiol 300 mg capsule 600 mg PO BID meclizine [Antivert] 25 mg tablet,chewable 25 mg PO TID PRN (Reason: dizziness) Probiotic 15 billion cell capsule, sprinkle 1 cap PO DAILY Rx Instructions: do not crush/chew/cut; swallow whole OR may open and sprinkle in cold drink/food levothyroxine 100 mcg tablet 100 mcg PO DAILY Qty: 90 1RF omeprazole 20 mg capsule,delayed release(DR/EC) See Rx Instructions .ROUTE .COMPLEX Qty: 180 1RF Dose Instruction: Take 1 capsule by mouth twice daily Rx Instructions: Take 1 capsule by mouth twice daily allopurinol 100 mg tablet See Rx Instructions .ROUTE .COMPLEX Qty: 90 1RF Dose Instruction: Take 1 tablet by mouth once daily Rx Instructions: Take 1 tablet by mouth once daily Calcium With Vitamin D3 See Rx Instructions .ROUTE .COMPLEX Rx Instructions: calcium 600 mg + vitamin D3 20 mcg BID clobetasol See Rx Instructions .ROUTE .COMPLEX Rx Instructions: four times a day during a flare up magnesium oxide 500 mg 500 mg PO DAILY nystatin 5 mg See Rx Instructions .ROUTE .COMPLEX Rx Instructions: 5 mg orally QID PRN during a flare up triamcinolone acetonide See Rx Instructions .ROUTE .COMPLEX Rx Instructions: on vaginal opening BID Anoro Ellipta 62.5-25 mcg/actuation blister with device See Rx Instructions .ROUTE .COMPLEX Qty: 60 5RF Dose Instruction: INHALE 1 PUFF BY MOUTH EVERY 24 HOURS Rx Instructions: INHALE 1 PUFF BY MOUTH EVERY 24 HOURS losartan 50 mg tablet See Rx Instructions .ROUTE .COMPLEX Qty: 90 0RF Dose Instruction: TAKE 1 TABLET BY MOUTH EVERY DAY AT BEDTIME Rx Instructions: TAKE 1 TABLET BY MOUTH EVERY DAY AT BEDTIME Follow-up/Referrals: Elena Raymond APRN [Primary Care Provider] - 2 Weeks Time of Disposition: 11:28
[2024-08-24 11:26] LABS: EDCOVIDSCREEN Negative (Negative); EDINFLUASCREEN Negative (Negative); EDINFLUBSCREEN Negative (Negative)
[2024-08-24 11:38] VITALS: PULSE 66; RESP 18; O2SAT 100
== END 2024-08-24 11:38 | disposition home or self-care (01) ==
PROVIDERS: Emergency Provider Nurse Practitioner Family; PCP Nurse Practitioner Family
DX: B34.9 Viral infection, unspecified (principal); Z20.822 Contact with and (suspected) exposure to COVID-19; Z87.891 Personal history of nicotine dependence; I48.0 Paroxysmal atrial fibrillation; I12.9 Hypertensive chronic kidney disease with stage 1 through stage 4 chronic kidney disease, or unspecified chronic kidney disease; N18.30 Chronic kidney disease, stage 3 unspecified; E03.9 Hypothyroidism, unspecified; M17.0 Bilateral primary osteoarthritis of knee; Z86.711 Personal history of pulmonary embolism; Z96.651 Presence of right artificial knee joint
CPT/HCPCS: 87426; 87804; 99213; G0463

== ENCOUNTER 2024-10-14 12:58 | Emergency (ER) | payer MEDICARE, SELFPAY ==
[2024-10-14 13:11] VITALS: BP 135/60; PULSE 84; RESP 16; TEMP 35.7; O2SAT 97
--- NOTE | 2024-10-14 13:20 | ED.EAR ---
HPI - Ear Problem General Chief complaint: Ear Stated complaint: left ear issue Time Seen by Provider: 10/14/24 13:20 Source: patient, RN notes reviewed and old records reviewed Mode of arrival: ambulatory Limitations: no limitations History of Present Illness HPI Narrative: Patient presents with complaints of left ear pain and drainage. She reports the pain began Monday, drainage began today. She reports decreased hearing as a result. She denies any fever, chills, sweats. She denies any injury or trauma. She has not been taking any medication for her symptoms. Related Data Home Medications ?Medication ?Instructions ?Recorded ?Confirmed ?Last Taken ?Type ursodiol 300 mg capsule 600 mg PO BID 07/17/20 08/24/24 02/26/22 History Calcium With Vitamin D3 See Rx Instructions .Route .COMPLEX 02/27/22 08/24/24 02/26/22 History magnesium oxide 500 mg PO DAILY 02/27/22 08/24/24 02/26/22 History nystatin See Rx Instructions .Route .COMPLEX 02/27/22 08/14/24 02/26/22 History triamcinolone acetonide See Rx Instructions .Route .COMPLEX 02/27/22 08/14/24 02/26/22 History propylene glycol 0.6 % eye drops 1 drp EACH EYE DAILY PRN Dry Eyes 08/02/23 08/24/24 Unknown History (Systane Balance) lactobacillus combo no.11 15 1 cap PO DAILY 08/14/24 08/24/24 Unknown History billion cell sprinkle capsule (Probiotic) meclizine 25 mg chewable tablet 25 mg PO TID PRN dizziness 08/14/24 08/24/24 Unknown History (Antivert) colestipol 1 gram tablet g PO 10/14/24 Unknown History Allergies Allergy/AdvReac Type Severity Reaction Status Date / Time shrimp Allergy Mild nausea, Verified 10/14/24 13:10 vomiting prednisone Allergy Mild Dizziness Uncoded 10/14/24 13:10 Tramadol Allergy Mild Dizziness Uncoded 10/14/24 13:10 SHELLFISH Allergy Unknown N&V Uncoded 10/14/24 13:10 Review of Systems Review of Systems: All systems reviewed & are unremarkable except as noted in HPI and below Constitutional: Constitutional: Reports no additional constitutional complaints ENT: Reports system reviewed and no additional complaints, except as documented, Reports ear discharge, Reports otalgia and Reports hearing loss Cardiovascular: Cardiovascular: Reports no additional cardiovascular complaints Respiratory: Respiratory: Reports no additional respiratory complaints Gastrointestinal: Gastrointestinal: Reports no additional gastrointestinal complaints [facility] Past Medical History Medical History Abnormal barium swallow Leg cramping Cramp of toe Numbness of toes Plantar fasciitis Arthritis of knee, right Arthritis of knee, left Chronic diarrhea Paroxysmal atrial fibrillation Vertigo Hiatal hernia Hypertrophic lichen planus of vulva Pulmonary embolism Atrial fibrillation with RVR CKD (chronic kidney disease), stage III Carpal tunnel syndrome Adult hypothyroidism Benign essential hypertension Fatigue Personal history of gout Primary biliary cholangitis Sleep apnea, unspecified Surgical History Surgical History History of cystoscopy History of cataract surgery History of carpal tunnel surgery History of bladder suspension procedure History of bowel resection History of bladder surgery History of colon resection History of cholecystectomy H/O: hysterectomy History of total right knee replacement Family History Family History Sibling Family history of rheumatoid arthritis Family history of heart disease in male family member before age 55 Family history of obesity Hypertension Family history of diabetes mellitus in first degree relative Mother Family history of osteoarthritis Family history of congestive heart failure Hypertension Family history of arthritis Father Cerebrovascular accident Family history of diabetes mellitus in first degree relative Other Diabetes mellitus Family history of cardiovascular disease Social History Social History Smoking packs per day: 2.5 Smoking cigarettes per day: 50.0 Years smoked: 35 Smoking pack-years: 87.50 Smoking status: Former smoker Tobacco type: cigarettes Second hand tobacco smoke exposure: No Smoking end date: 08/28/87 Alcohol intake: never Substance use: never Substance use type: does not use Do You Feel Safe in your Home?: Yes Lack of Transportation: No Lack of Food: Never True Current Housing: I Have Housing Concerned About Future Housing: Decline to Answer Difficulty Paying Gas/Electric Bills: Decline to Answer Difficulty Paying for Meds: Decline to Answer Currently Unemployed: Decline to Answer Education: Decline to Answer Difficulty w/ Childcare or Family Care: Decline to Answer Living arrangements: alone Occupation/Education: retired 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 There is no relevant family history pertinent to the patient complaint. Exam Const: General: cooperative, no acute distress, alert and awake Orientation/consciousness: oriented to person, oriented to place and oriented to time HENMT: Head: normal to inspection Ears: Abnormal EAC present erythema on the left, edema on the left, EAC tenderness on the left and otic discharge purulent on the left and unable to visualize TM on the left Mouth: Yes moist mucous membranes Resp: Effort & Inspection: normal respiratory effort and able to speak in complete sentences Auscultation: clear to auscultation bilaterally, no crackles, no rales, no rhonchi and no wheezes Cardio: Palpation: normal PMI Rate: regular rate Rhythm: regular rhythm Heart sounds: S1 normal heart sound present and S2 normal heart sound present Neuro: General: oriented to person, oriented to place and oriented to time Cranial nerves: Yes CN's II-XII intact bilaterally Psych: Appearance: grossly normal Thought process: Normal thought process present Insight: Good insight present (Psych) Judgement: Good judgement present (Psych) Course Course Level of Care: Express Care Visit Vital Signs Vital signs: Vital Signs Temperature 96.2 F L 10/14/24 13:11 Pulse Rate 84 10/14/24 13:11 Respiratory Rate 16 10/14/24 13:11 Blood Pressure 135/60 10/14/24 13:11 Pulse Oximetry 97 10/14/24 13:11 Oxygen Delivery Room Air 10/14/24 13:11 Temperature 96.2 F L 10/14/24 13:11 Pulse Rate 84 10/14/24 13:11 Respiratory Rate 16 10/14/24 13:11 Blood Pressure 135/60 10/14/24 13:11 Pulse Oximetry 97 10/14/24 13:11 Oxygen Delivery Room Air 10/14/24 13:11 Reviewed Procedures Other Procedure Procedure 1: Other Procedure: Ear wick inserted into left ear, no complication Medical Decision Making MDM Narrative Medical decision making narrative: History and exam consistent with otitis externa. Ear wick inserted left ear without any difficulty, patient tolerated procedure well. Otic drops prescribed Discharge instructions reviewed with patient, as well as provided in writing per nursing staff. The instructions also include specific and strict return/GO TO THE ER as well as f/u information. All questions have been answered, and the patient deny any further questions with discharge and discharge plan. Some parts of this dictation were generated by voice recognition software and may contain typographical and/or grammatical inaccuracies. Differential Diagnosis Differential Diagnosis: Otitis media, ear trauma Medical Records Medical records reviewed: Yes I reviewed the external patient's medical records. Vital Signs Vital Signs: Vital Signs Temperature 96.2 F L 10/14/24 13:11 Pulse Rate 84 10/14/24 13:11 Respiratory Rate 16 10/14/24 13:11 Blood Pressure 135/60 10/14/24 13:11 Pulse Oximetry 97 10/14/24 13:11 Oxygen Delivery Room Air 10/14/24 13:11 Temperature 96.2 F L 10/14/24 13:11 Pulse Rate 84 10/14/24 13:11 Respiratory Rate 16 10/14/24 13:11 Blood Pressure 135/60 10/14/24 13:11 Pulse Oximetry 97 10/14/24 13:11 Oxygen Delivery Room Air 10/14/24 13:11 reviewed Lab Data Lab results reviewed: Yes I reviewed the patient's lab results. Lab results narrative: reviewed Discharge Plan Discharge Clinical Impression: Otitis externa Qualifiers: Otitis externa type: unspecified type Chronicity: acute Laterality: left Qualified Code(s): H60.502 - Unspecified acute noninfective otitis externa, left ear Patient Disposition: Home, Self-Care Condition: Stable Instructions: Antibiotic Form, Swimmer's Ear (ED) Patient Language: Iranian Prescriptions: New ciprofloxacin-dexamethasone 0.3-0.1 % drops,suspension 4 drp LEFT EAR Q12H 7 Days Qty: 7.5 0RF No Action colestipol 1 gram tablet PO Systane Balance 0.6 % drops 1 drp EACH EYE DAILY PRN (Reason: Dry Eyes) ursodiol 300 mg capsule 600 mg PO BID meclizine [Antivert] 25 mg tablet,chewable 25 mg PO TID PRN (Reason: dizziness) Probiotic 15 billion cell capsule, sprinkle 1 cap PO DAILY Rx Instructions: do not crush/chew/cut; swallow whole OR may open and sprinkle in cold drink/food levothyroxine 100 mcg tablet 100 mcg PO DAILY Qty: 90 1RF omeprazole 20 mg capsule,delayed release(DR/EC) See Rx Instructions .ROUTE .COMPLEX Qty: 180 1RF Dose Instruction: Take 1 capsule by mouth twice daily Rx Instructions: Take 1 capsule by mouth twice daily allopurinol 100 mg tablet See Rx Instructions .ROUTE .COMPLEX Qty: 90 1RF Dose Instruction: Take 1 tablet by mouth once daily Rx Instructions: Take 1 tablet by mouth once daily Calcium With Vitamin D3 See Rx Instructions .ROUTE .COMPLEX Rx Instructions: calcium 600 mg + vitamin D3 20 mcg BID magnesium oxide 500 mg 500 mg PO DAILY nystatin 5 mg See Rx Instructions .ROUTE .COMPLEX Rx Instructions: 5 mg orally QID PRN during a flare up triamcinolone acetonide See Rx Instructions .ROUTE .COMPLEX Rx Instructions: on vaginal opening BID Anoro Ellipta 62.5-25 mcg/actuation blister with device See Rx Instructions .ROUTE .COMPLEX Qty: 60 5RF Dose Instruction: INHALE 1 PUFF BY MOUTH EVERY 24 HOURS Rx Instructions: INHALE 1 PUFF BY MOUTH EVERY 24 HOURS losartan 50 mg tablet See Rx Instructions .ROUTE .COMPLEX Qty: 90 0RF Dose Instruction: TAKE 1 TABLET BY MOUTH EVERY DAY AT BEDTIME Rx Instructions: TAKE 1 TABLET BY MOUTH EVERY DAY AT BEDTIME Follow-up/Referrals: Elena Raymond APRN [Primary Care Provider] - 2 Weeks Time of Disposition: 13:29
== END 2024-10-14 13:33 | disposition home or self-care (01) ==
PROVIDERS: Emergency Provider Nurse Practitioner Family; PCP Nurse Practitioner Family
DX: H60.502 Unspecified acute noninfective otitis externa, left ear (principal); Z87.891 Personal history of nicotine dependence; I48.0 Paroxysmal atrial fibrillation; I13.10 Hypertensive heart and chronic kidney disease without heart failure, with stage 1 through stage 4 chronic kidney disease, or unspecified chronic kidney disease; N18.30 Chronic kidney disease, stage 3 unspecified; E03.9 Hypothyroidism, unspecified; M17.0 Bilateral primary osteoarthritis of knee; M10.9 Gout, unspecified; Z86.711 Personal history of pulmonary embolism; Z96.651 Presence of right artificial knee joint
CPT/HCPCS: 99213; G0463

== ENCOUNTER 2024-10-28 14:20 | Outpatient (CLI) | payer MEDICARE, SELFPAY | END 2024-10-28 14:21 | disposition home or self-care (01) | LOC: ANHIMG 14:23 | PROVIDERS: PCP Nurse Practitioner Family; Visit Provider Family Medicine | DX: Z12.31 Encounter for screening mammogram for malignant neoplasm of breast (principal) | CPT/HCPCS: 77063; 77067 ==

== ENCOUNTER 2025-05-12 14:07 | Outpatient (CLI) | payer MEDICARE, SELFPAY ==
--- OUTSIDE RECORDS SUMMARY | 2010-05-17 03:00 | XMS_ITS | Continuity of Care Document ---
Author Organization [facility] Address [address] [place] [address] Phone Care Team Providers Care Enrollment Processor Name Role Phone Rogelio Langford Unavailable Unavailable Procedures Procedure Date Office/outpatient Visit, Est Eye Exam & Treatment No Script Refraction Office/outpatient Visit, Est Eye Exam & Treatment Refraction Visual Functional Status Assessed Office Consultation Eye Exam Established Pt Eye Exam Established Pt Advance Directives Directive Yes / No Effective Date File Name No Information Encounters Encounter Description Practice Location Reason(s) For Visit Diagnoses Date Provider Providers Copied on Encounter Office/outpati ent Visit, [facility] [place], [id number] [place] [address] [address], [place], [place], [id number], [place] tel:[phone] SEC [facility] No Information Sep-2 0-201 0 Anastasiya Mercado. [address] , [address], [place], [address], [place]. tel:[phone] [facility], [address], [place], [place], [id number], [place] tel:[phone] [facility] [place] No Information Sep-2 1-200 9 Anastasiya Mercado. [address], [address], [place], [address], [place]. tel:[phone] Office/outpati ent Visit, [facility], [address], [place], [place], [id number], [place] tel:[phone] [facility] [place] No Information Sep-2 4-200 8 Anastasiya Mercado. [address] [place], [place] [address] , [address], [place], [place], [facility], [place]. tel:[phone] [facility], [address] [place] [address] [address], [place], [place], [id number], [place] tel:[phone] [facility] [place] No Information Sep-0 7-200 7 [facility]. [facility] , [address], [place], [place], [facility], [place]. tel:[phone] Office Consultation [facility], [address] [place] [address] [address], [place], [place], [id number], [place] tel:[phone] SEC [place] [facility] No Information Wilber-2 6-200 7 Sherry Balderrama. [address] [facility], [address], [place], [place], [id number], [place]. tel:[phone] Referring Provider: Rogelio Hanna, [facility] [address], [place], [place], [facility]. tel:[phone] [facility], [address] [place] [address] [address], [place], [place], [id number], [place] tel:[phone] [facility] [place] No Information Samir-0 8-200 7 Anastasi[facility] Mercado. [facility] , [address], [place], [address], [place]. tel:[phone] [facility], [address], [place], [place], [id number], [place] tel:[phone] [facility] No Information May-2 5-200 7 Anastasiya Mercado. [facility] [address], [place], [address], [place]. tel:[phone] Family History Family Member Type Diagnosis Age At Onset No Information Payers Payer name Insurance type Covered constitution party ID Authoriza tion(s) [place] [id number] Social History Type Description Quantity Date Captured Comments Sex Female Smoking Status No Information Chief Complaint And Reason For Visit No Information Reason For Referral Reason For Referral No Information History Of Present Illness Encounter Date Complaint History Of Prese nt Illness No Information Functional Status Date Functional Assessmen t No Information Instructions Date Instruction Additional Infor mation No Information Assessments Type Assessment Date No Information Patient Care Teams Name Effective Dates (start - stop) Status Members No Information
--- NOTE | ~2025-05-12 | DEXA_ITS ---
Bone Density Report Name: RIKKI ALFREDO Age: 84 Sex: Female Ethnicity: White Date of : 1940 Indication: osteopenia; parental hip fracture; height loss; asthma or emphysema; hysterectomy; Referring Provider: SRAVAN, JERRY Street Study: Bone densitometry was performed. Exam Date: May 12, 2025 Accession number: [id number] Bone Density: Region BMD T-score Z-score Classification AP Spine(L1-L4) 0.932 -1.0 1.8 Normal Femoral Neck (Left) 0.579 -2.4 0.1 Osteopenia Total Hip (Left) 0.726 -1.8 0.6 Osteopenia Femoral Neck (Right) 0.629 -2.0 0.5 Osteopenia Total Hip (Right) 0.687 -2.1 0.2 Osteopenia Total Hip Mean 0.707 -2.0 0.4 Osteopenia World Health Organization criteria for BMD impression classify patients as: Normal (T-score at or above -1.0), Osteopenia (T-score between -1.0 and -2.5), or Osteoporosis (T-score at or below -2.5). 10-year Fracture Risk(1): Major Osteoporotic Fracture 33% Hip Fracture 23% Reported Risk Factors: [place] (), Neck BMD=0.579, BMI=27.4, parental fracture (1) FRAX(R) Version 3.08. Fracture probability calculated for an untreated patient. Fracture probability may be lower if the patient has received treatment. Previous Exams: Region Exam Age BMD T-score BMD Change BMD Change Date g/cm2 vs Baseline vs Previous AP Spine (L1-L4) 05/12/2025 84 0.932 -1.0 -0.048 (-4.9%) -0.013 (-1.3%) 05/03/2023 82 0.944 -0.9 -0.036 (-3.6%) -0.036 (-3.6%) 12/29/2020 80 0.980 -0.6 Total Hip(Left) 05/12/2025 84 0.726 -1.8 -0.037 (-4.9%) -0.030 (-3.9%) 05/03/2023 82 0.756 -1.5 -0.008 (-1.0%) -0.008 (-1.0%) 12/29/2020 80 0.764 -1.5 Total Hip(Right) 05/12/2025 84 0.687 -2.1 -0.037 (-5.2%) -0.001 (-0.2%) 05/03/2023 82 0.688 -2.1 -0.036 (-5.0%) -0.036 (-5.0%) 12/29/2020 80 0.724 -1.8 *Denotes significance at 95% confidence level, LSC for AP Spine = 0.022 g/cm2, LSC for Total Hip = 0.027 g/cm2 Clinical Information Provided by Patient: Parent has had a hip fracture Has used the following medications: Vitamin D, Calcium Has the following medical conditions: Asthma or Emphysema, Hysterectomy Patient maximum height was 64 Menopause Age: 49 No regular weight bearing exercise Drinks caffeinated beverages Onset of menses at age 13 Number of children 2 Impression: The patient has low bone mass, based on the Left Femoral Neck T-score. The patient has an estimated ten-year risk of hip fracture of 23% and an estimated ten-year risk of major fracture of 33%, based on the WHO FRAX algorithm. The patient has risk factors, including: parental hip fracture. The BMD for the Total Hip(Left) decreased, changing by -3.9% since the last DXA exam. Discussion: BONE DENSITY IS LOW AT ONE OR MORE SKELETAL SITES. THE PATIENT'S BMD AND CLINICAL RISK FACTORS CONTRIBUTE TO THIS PATIENT'S HIGH RISK OF FRACTURE. This patient's lowest T-score is low at one or more skeletal sites. It meets the World Health Organization's (WHO) criteria for ?low bone mass? (T-score between -1.0 and -2.5). The patient's 10-year risk of hip fracture and 10 year risk of a major osteoporotic fracture as calculated by FRAX exceeds the threshold where pharmacological therapy is recommended by the National Osteoporosis Foundation (NOF). However, all treatment decisions require clinical judgment and consideration of individual patient factors, including patient preferences, comorbidities, previous drug use, risk factors not captured in the FRAX model (e.g., frailty, falls, vitamin D deficiency, increased bone turnover, interval significant decline in bone density) and possible under or overestimation of fracture risk by FRAX. The patient should follow a healthful lifestyle (good nutrition with adequate calcium and vitamin D, and appropriate weight-bearing exercise). Follow-Up: Consider a repeat BMD and Vertebral Fracture Assessment (VFA) exam in 2 years or sooner if medically necessary, to reassess this patient's status. Reported by: YAEL on 05/12/2025 2:45:00 PM. Reviewed, dictated and finalized at location A.
--- OUTSIDE RECORDS SUMMARY | 2025-05-12 17:01 | XMS_ITS | Clinical Summary ---
Author Organization [facility] Address [address] [place] [id number] Care Team Providers Care Mediation Commissioner Name Role Phone Shubham Sesay DO Primary Care Provider [phone] Allergies Active Allergy Reactions Criticality Noted Date Comments Shellfish-Derived Products Nausea and Vomiting 12/25/2020 Social History Tobacco Use Types Packs/Day Years Used Date Smoking Tobacco: Never Smokeless Tobacco: Never Alcohol Use Standard Drinks/Week Comments Never 0 (1 standard drink = 0.6 oz pur e alcohol) AUDIT-C Answer Date Recorded Q1: How often do you have a drink containing alc ohol? Never 12/25/2020 Average Number of Drinks Not on file 021 Frequency of Binge Drinking Not on file 11/28 Comments Unknown Sex and Gender Information Value Date Recorded Sex Assigned at Not on file Legal Sex Female 8:48 PM CDT Gender Identity Not on file Sexual Orientation Not on file Last Filed Vital Signs Vital Sign Reading Time Taken Comments Blood Pressure 198/125 12/26/2020 2:30 AM CDT pt reports wanting to go home, and is tired. Pt is also tearful, Pulse 63 12/26/2020 2:30 AM CDT Temperature 37 C (98.6 F) 12/25/2020 8:57 PM CDT Respiratory Rate 19 12/26/2020 2:30 AM CDT Oxygen Saturation 95% 12/26/2020 2:3 0 AM CDT Inhaled Oxygen Concentration - - Weight 68 kg (150 lb) 12/25/2020 8:57 PM CDT Height 157.5 cm (5' 2) 12/25/2020 8:57 PM CDT Body Mass Index 27.44 12/25/2020 8:57 PM CDT Plan of Treatment Health Maintenance Due Date Last Done Comments DTaP, Tdap and Td Vaccines ( 1 - Tdap) 1959 Annual Medicare Wellness Visit 2004 RSV Immunization or 60+ Years (1 - 1-dose 75+ series) 2014 Pneumococcal Vaccine: 50+ Years (2 of 2 - PPSV23) 10/04/2017 10/04/2016 Zoster Vaccines (3 of 3) 11/22/2018 019, 07/23/2013 COVID-19 Vaccine (3 - 2024-2 6 season) 2025 11/16/2020, 10/08/2020 Meningococcal B Vaccine Aged Out No l onger eligible based on patient's age to complete this topic Meningococcal Vaccine Aged Out No bry toi eligible based on patient's age to complete this topic RSV Immunizations Under 20 Months Aged Out No longer eligible b ased on patient's age to complete this topic Insurance MED [facility] MEDICARE Care Teams Mediation Commissioner Relationship Specialty Start Date End Date Shubham Sesay DO [address] [address] PCP - General INTERNAL MEDICINE 12/25/20
--- OUTSIDE RECORDS SUMMARY | 2025-05-12 17:01 | XMS_ITS | Clinical Summary ---
Author Organization [facility] Address [address] [place] [address] Care Team Providers Care Assistant Product Manager Name Role Phone Jose Moe MD Primary Care Provider [phone] Source Comments [facility],non-owned Affiliates and Associated Physician Practices is amultiple site organization consisting of ambulatory clinics and hospital sitesin [place], [place], [place] and [place]. This disclosure is being madepursuant to the Care Everywhere program and may not contain all information available regarding this patient. Last updated 18.[facility] Allergies Active Allergy Reactions Criticality Noted Date Comments Prednisone Nausea and/or Vomiting,Dizziness Low 06/02/2020 Confusion, nausea and extreme dizziness Shellfish Allergy Nausea and/or Vomiting Low 10/14/2024 Shellfish-Derived Products Nausea and/or Vomiting,Vomiting Medium Shrimp Tramadol Dizziness Low 10/14/2024 Nausea and vomiting, dizziness Medications * Be aware that medications may not be up to date on this document. Alwaysverify current medications with the patient. allopurinol (ZYLOPRIM) 100 MG tablet Take 1 (one) tablet by mouth once daily Active omeprazole (PRILOSEC) 20 MG capsule Take 1 (one) capsule by mouth 2 times daily, before breakfast and supper Active Calcium Carb-Cholecalc iferol (CALCIUM/VITAM IN D) 600-400 MG-UNIT TABS Take 600 mg by mouth 2 times daily Active magnesium 500 MG tablet Take 1 (one) tablet by mouth once daily Active levothyroxine (SYNTHROID) 100 MCG tablet Take 1 (one) tablet by mouth once daily 0 Active Anoro Ellipta 62.5-25 MCG/ACT inhaler Inhale 1 (one) puff by mouth once daily 3 Active polyethyl glycol-propyl glycol (Systane) 0.4-0.3 % ophth solution Instill 1 (one) drop into both eyes as needed for Dry Eyes Active diclofenac sodium (Voltaren) 1 % gel Apply 4 (four) g to affected area 4 times daily as needed Active losartan (Cozaar) 50 MG tablet Take 1 (one) tablet by mouth once daily 4 Active triamcinolone acetonide (Kenalog) 0.1 % ointmentIndica tions:Erosive lichen planus of vagina APPLY OINTMENT TOPICALLY TO AFFECTED AREA NIGHTLY TO VULVAR TISSUE 30 g 1 4 Active colestipol (Colestid) 1 GM tabletIndicati ons:Primary biliary cirrhosis (HCC) Take 1 (one) tablet by mouth 2 times daily 180 tablet 2 5 Active ursodiol (Actigall) 300 MG capsule Take 2 (two) capsules by mouth 2 times daily 360 capsule 2 5 Active traMADol (Ultram) 50 MG tablet Take 1 (one) tablet by mouth 2 times daily as needed For pain. 5 Active nystatin (Mycostatin) 256068 UNIT/ML suspension Rinse with 5 mL for two minutes at a time four times daily and then spit. Do not eat, rinse, or drink for twenty minutes. Do not exceed 14 days. 473 mL 3 5 Active clobetasol (Temovate) 0.05 % gel Dry the affected, painful tissue. Apply gel to affected intraoral site(s) two times daily. Do not eat, rinse, or drink for thirty minutes. Discontinue when the pain subsides or after two weeks. 60 g 1 5 Active fluconazole (Diflucan) 100 MG tablet Take two tablets by mouth on the first day and one tablet by mouth everyday thereafter until complete. 15 tablet 2 5 Active nystatin (Mycostatin) 528727 UNIT/ML suspension Rinse with 5 mL for two minutes at a time four times daily and then spit. Do not eat, rinse, or drink for twenty minutes. Do not exceed 14 days. 473 mL 3 4 04/21/20 25 Discontin ued(Reord er) clobetasol (Temovate) 0.05 % gel Dry the affected, painful tissue. Apply gel to affected intraoral site(s) two times daily. Do not eat, rinse, or drink for thirty minutes. Discontinue when the pain subsides or after two weeks. 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 Osteoarthritis of left knee 03/18/2022 Oral lichen planus 05/19/2021 Tongue, fissured 05/19/2021 Hypothyroidism 04/28/2021 Lentigo 03/03/2021 Tinea pedis of both feet 03/03/2021 Seborrheic keratosis 03/03/2021 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 Overview (08/02/2022): 08/02/22 Fibroscan CAP 233, LSM 8.0 kPa Lesion of bladder Resolved Problems Problem Noted Date Diagnosed Date Resolved Date Screening exam for skin cancer 03/03/2021 05/09/2023 Lichen planus 11/09/2020 11/01/2022 Vaginal stenosis 10/26/2021 Encounters Date Type Department Care Team Description 05/02/2025 Telephone [facility] [address] [place] [address] Rodney Taylor RN Dexa Results 04/21/2025 9:45 AM CDT Office Visit [facility] [address] [place] [address] Rodney Orlando, DMD Oral candidiasis (Primary Dx); Oral lichen planus; Dry mouth; Tongue, fissured 04/21/2025 Travel from Last 3 Months Immunizations Immunization Administration Dates Next Due INFLUENZA VACCINE, TRIV. (AF LURIA, FLUZONE TRIVALENT; 6MO+) (IIV3) 06/04/2014 COVID MODERNA 12+ yr 50mcg/0.5mL 05/20/2024,11/2023 COVID MODERNA BIVALENT 12Y+ 50MCG/0.5ML 12/19/2022,05/13/2022 Covid Moderna booster monova lent 6y-11yr 0.5ml 07/01/2021,11/09/2020,10/12/2020 Covid Moderna primary monova lent 12+ yr 0.5mL 12/13/2021,07/01/2021,11/16/2020,2020 FLU VACCINE TRI IIV3 SPLIT I M (FLUVIRIN) 06/17/2015,06/11/2013 HEP A VACCINE, ADULT 07/26/2018 INFLUENZA [id number], HISTORIC VACCINE 06/18/2021 INFLUENZA VACCINE 05/25/2022,,06/07/2019,2016,06/06/2016,06/04/2014 INFLUENZA VACCINE, ADJUVANTE D, QUADR. (FLUAD QUADRIVALENT; 65Y+) (AIIV4) 05/22/2020 INFLUENZA VACCINE, HIGH-DOSE , QUADR. (FLUZONE HIGH-DOSE QUADRIVALENT; 65Y+), 0.7 ML (HD-IIV4) 06/12/2023,06/06/2022,05/22/2020,2018,06/11/2013 INFLUENZA VACCINE, HIGH-DOSE , TRIV. (FLUZONE HIGH-DOSE TRIVALENT; 65Y+) (HD-IIV3) 06/12/2024,06/07/2019,06/16/2017,2015 PNEUMOCOCCAL PPV VACCINE 06/13/2022 Pneumococcal Pcv13 Conj 10/04/2016 RSV AREXVY 60YR+ 0.5ML 09/19/2023 ZOSTER VACCINE, LIVE 07/23/2013 Zoster Hzv Vacc Recombinant Inj Im 09/27/2018,,07/26/2018 Family History Medical History Relation Name Comments CAD (Coronary Artery Disease) Brother Diabetes; unknown type Brother High Cholesterol Brother Hypertension Brother CAD (Coronary Artery Disease) Father CVA Father Diabetes; unknown type Father High Cholesterol Father Hypertension Father None Known Maternal Aunt None Known Maternal Grandfather None Known Maternal Grandmother None Known Maternal Uncle CAD (Coronary Artery Disease) Mother Diabetes; unknown type Mother Hypertension Mother Osteoporosis Mother None Known Other None Known Paternal Aunt None Known Paternal Grandfather None Known Paternal Grandmother None Known Paternal Uncle Diabetes; unknown type Sister High Cholesterol Sister Thyroid Disease Sister Asthma Neg Hx Cancer - Breast Neg Hx Cancer - Other Neg Hx Cancer - Skin, Melanoma Neg Hx Cancer - Skin, Non Melanoma Neg Hx Eczema Neg Hx Hemophilia Neg Hx Psoriasis Neg Hx Relation Name Status Comments Brother Father Maternal Aunt Maternal Grandfather Maternal Grandmother Maternal Uncle Mother Other Paternal Aunt Paternal Grandfather Paternal Grandmother Paternal Uncle Sister Social History Tobacco Use Types Packs/Day Years Used Date Smoking Tobacco: Former Cigarettes Passive Smoke Exposure: Never Smokeless Tobacco: Never Comments:quit 30 years ago Alcohol Use Standard Drinks/Week Comments Not Currently 0 (1 standard drink = 0.6 oz pur e alcohol) rarely PHQ-2 Answer Date Recorded Patient Health Questionnaire-2 Score 0 11/05/2024 Comments No Sex and Gender Information Value Date Recorded Sex Assigned at Not on file Legal Sex Female 5:48 AM LENDING MANAGER Gender Identity Not on file Sexual Orientation Not on file Last Filed Vital Signs Vital Sign Reading Time Taken Comments Blood Pressure 151/70 04/21/2025 10:03 AM CDT Pulse 78 04/21/2025 10:03 AM CDT Temperature 37.6 C (99.7 F) 09/23/2024 2:40 PM LENDING MANAGER Respiratory Rate 16 09/04/2024 9:24 AM LENDING MANAGER Oxygen Saturation 100% 09/23/2024 2:40 PM LENDING MANAGER Inhaled Oxygen Concentration - - Weight 63.5 kg (140 lb) 04/21/2025 10:03 AM CDT Height 157.5 cm (5' 2) 04/21/2025 10:03 AM CDT Body Mass Index 25.61 04/21/2025 10:03 AM CDT Plan of Treatment Upcoming Encounters Date Type Department Care Team (Late st Contact Info) Description 05/20/2025 10:10 AM CDT Office Visit [facility] - [facility] [address], [facility] [address] [place] [phone] Nat Wesley MD [address] [facility] [address] [place] [address] 05/26/2025 9:30 AM CDT Testing [facility] - ENT [address] [place] [phone] Jhoana Gipson AuD [address] [place] [address] [address] [place] [address] 05/26/2025 10:00 AM CDT Office Visit [facility] - ENT [address] [place] [phone] Ralph Conner MD [address] [place] [address] [address] [place] [address] 07/21/2025 11:15 AM LENDING MANAGER Office Visit [facility] - ENT [address] [place] [phone] Rodney Orlando DMD [address] [place] [address] [address] [place] [address] 09/22/2025 10:30 AM LENDING MANAGER Procedure visit [facility] - [place] [address] [place] [phone] 09/22/2025 11:00 AM LENDING MANAGER Office Visit [facility] - [place] [address] [place] [phone] Josemanuel Huynh MD [address] [place] [address] [address] [place] [address] Health Maintenance Due Date Last Done Comments BONE DENSITY TESTING 1940 DTAP/TDAP/TD VACCINES (1 - Tdap) 1958 HEPATITIS B VACCINE (1 of 3 - Risk 3-dose series) 1999 MEDICARE AWV CALENDAR YEAR 2024 COVID-19 VACCINE ( season) 2025 05/20/2024, 08/31/2023, 12/19/2022, Additional history exists INFLUENZA VACCINE (#1) 2025 , 06/12/2023, 06/06/2022, Additional history exists ZOSTER VACCINE Completed 09/27/2018, 08/28, 07/26/2018, Additional history exists PNEUMOCOCCAL VACCINE 50+ Completed 06/13/2022, 02/2017 Respiratory Syncytial Virus (RSV) Vaccine Pt: or over 60 yrs Completed 09/19/2023 DEPRESSION SCREENING Completed 09/20/2024, 11/07/2023, 05/09/2023 HIB VACCINE Aged Out No longer eligi ble based on patient's age to complete this topic HPV VACCINE Aged Out No longer eligi ble based on patient's age to complete this topic MENINGOCOCCAL (Group B) VACCINE SHARED DECISION-MAKING Aged Out No longer eligible based on patient's age to complete this topic MENINGOCOCCAL GROUPS A/C/Y/W VACCINE Aged Out No longer eligible based on patient's age to complete this topic Goals Goal Patient Goal Type Associated Problems Recent Progress Patient-Stated? Author Medication Management General On track( 025 2:43 PM LENDING MANAGER) Jaylyn Chambers, RN Note: Expected end date: Ongoing Interventions: Take all medications as prescribed Let your doctor know right away about any changes in your medications Make sure to request a refill of your medication at least one week prior to your last dose Insurance AETNA AETNA MEDICARE ADV Care Teams Assistant Product Manager Relationship Specialty Start Date End Date Jose Moe MD [address] [place] [phone] PCP - General Family Medicine 11/07/23
--- OUTSIDE RECORDS SUMMARY | 2025-05-12 17:01 | XMS_ITS | Encounter Summary ---
Author Organization [facility] Address [address] [facility] [place] [address] Care Team Providers Care Petrologist Name Role Phone Shubham Sesay DO Primary Care Provider [phone] Elena Raymond Primary Care Provider [phone] Unknown, Provider Primary Care Provider Jose Carrasco MD Primary Care Provider [phone] Reason for Visit * Reason Onset Date Comments MEDICATION REFILL 12/24/2021 Encounter Details Date Type Department Care Team (Late st Contact Info) Description 12/24/2021 Refill [facility] [address] [facility] [place], [place] [address] Rodney Orlando, D[place] [address] [place] [address] [place] [address] MEDICATION REFILL Social History Tobacco Use Types Packs/Day Years Used Date Smoking Tobacco: Former Cigarettes Smokeless Tobacco: Never Comments:quit 30 years ago Alcohol Use Standard Drinks/Week Comments Not Currently 0 (1 standard drink = 0.6 oz pur e alcohol) rarely Comments No Sex and Gender Information Value Date Recorded Sex Assigned at Not on file Legal Sex Female 5:48 AM RN OBGYN Gender Identity Not on file Sexual Orientation Not on file documented as of this encounter Plan of Treatment Upcoming Encounters Date Type Department Care Team (Late st Contact Info) Description 05/20/2025 10:10 AM CDT Office Visit [facility] [address], [address] [place] [phone] Nat Wesley MD [address] [place] [phone] 05/26/2025 9:30 AM CDT Testing [facility] ENT [address] [place] [phone] JackyJhoana guillory, Ivette [address] [place] [address] [address] [place] [address] 05/26/2025 10:00 AM CDT Office Visit [facility] - ENT [address] [place] [phone] Ralph Conner MD [address] [place] [address] [place] [address] 07/21/2025 11:15 AM RN OBGYN Office [facility] ENT [address] [place] [phone] Rodney Orlando DMD [address] [place] [address] [place] [address] 09/22/2025 10:30 AM RN OBGYN Procedure visit [facility] - [place] [address] [place] [phone] 09/22/2025 11:00 AM RN OBGYN Office Visit [facility] - [place] [address] [place] [phone] Josemanuel Huynh MD [address] [place] [address] [place] [address] documented as of this encounter Goals Goal Patient Goal Type Associated Problems Recent Progress Patient-Stated? Author Medication Management General On track( 025 2:43 PM RN OBGYN) Jaylyn Chambers, RN Note: Expected end date: Ongoing Interventions: Take all medications as prescribed Let your doctor know right away about any changes in your medications Make sure to request a refill of your medication at least one week prior to your last dose documented as of this encounter Visit Diagnoses Not on filedocumented in this encounter Care Teams Petrologist Relationship Specialty Start Date End Date Shubham Sesay DO [address] [place], [place] [phone] PCP - General 02/04/19 05/08/23 Elena Raymond PA [address] [place] [phone] PCP - General Nurse Practitioner Primary Care 05/09/23 10/15/23 Unknown, Provider PCP - General 10/16/23 11/06/23 Jose Moe MD [address] [place] [phone] PCP - General Family Medicine 11/07/23 documented as of this encounter
--- OUTSIDE RECORDS SUMMARY | 2025-05-12 17:01 | XMS_ITS | Clinical Summary ---
Author Organization [facility] [address] Address [address] [place] [address] Care Team Providers Care Clamp Carrier Operator Name Role Phone Jose Moe MD Primary Care Provider [phone] Allergies Active Allergy Reactions Criticality Noted Date Comments Prednisone Nausea only Low 06/02/2020 Shellfish Derived Nausea & Vomiting Low 06/02/2020 shrimp Medications ursodioL (ACTIGALL) 300 mg capsule Take 2 capsules (600 mg total) by mouth 0 Active colestipoL (COLESTID) 1 gram tablet every 12 hours 0 Active levothyroxine (SYNTHROID) 100 mcg tablet levothyroxine 100 mcg tablet TAKE 1 TABLET BY MOUTH ONCE DAILY Active allopurinoL (ZYLOPRIM) 100 mg tablet daily Active omeprazole 20 mg tablet,disinte grat, delay rel every 12 hours Activ e magnesium oxide,aspartat e,citr (Triple Magnesium Complex) 400 mg magnesium capsule Take by mouth daily Active calcium carbonate-alfred min D3 (CALTRATE 600 + D) 1500 mg (600 mg elemental) -400 units per tablet Take by mouth 2 (two) times a day Active amLODIPine (NORVASC) 5 mg tablet Take 0.5 tablets (2.5 mg total) by mouth daily 3 Active fluticasone propion-salmet Abdullahi (ADVAIR DISKUS) 100-50 mcg/dose diskus inhaler INHALE 1 DOSE BY MOUTH EVERY 12 HOURS 3 Active triamcinolone (KENALOG) 0.1 % ointment Apply to vulvar tissues nightly. 1 Active clobetasoL (TEMOVATE) 0.05 % gel DRY THE AFFECTED, PAINFUL TISSUE. APPLY TO THE AFFECTED INTRAORAL SITE(S) TWICE DAILY. DO NOT EAT, RINSE, OR DRINK FOR 30 MINUTES. DISCONTINUE WHEN THE PAIN SUBSIDES OR AFTER 2 WEEKS 3 Active nystatin 100,000 unit/mL suspension Rinse with 5 mL for two minutes at a time four times daily and then spit. Do not eat, rinse, or drink for twenty minutes. Do not exceed 14 days. 2 Active diclofenac sodium (VOLTAREN) 1 % gel APPLY 4 GRAMS TOPICALLY FOUR TIMES DAILY NEEDED FOR PAIN. 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 Lentigo 01/13/2014 Rash 01/13/2014 Knee pain 12/21/2011 Surgical History Surgery Date Site/Laterality Comments REPLACEMENT TOTAL KNEE GALLBLADDER SURGERY EYE SURGERY INCONTINENCE SURGERY BOWEL RESECTION HYSTERECTOMY CARPAL TUNNEL RELEASE HERNIA REPAIR Medical History Medical History Date Comments Emphysema of lung Constipation Hematuria Gout Thyroid disease Anemia GERD (gastroesophageal reflux disease) Whooping cough Family History Medical History Relation Name Comments Diabetes Child Hyperlipidemia Child Hypertension Child Diabetes Father Stroke Father Heart failure Mother Hypertension Mother Diabetes Other sibling Hypertension Other sibling heart problem Other sibling Relation Name Status Comments Child Father Mother Other sibling Alive Social History Tobacco Use Types Packs/Day Years Used Date Smoking Tobacco: Former Cigarettes 9 - 1988 Smokeless Tobacco: Never Tobacco Cessation:Counseling Given: Not Answered Alcohol Use Standard Drinks/Week Comments Never 0 (1 standard drink = 0.6 oz pur e alcohol) AUDIT-C Answer Date Recorded Q1: How often do you have a drink containing alc ohol? Monthly or less 04/08/2021 Average Number of Drinks Not on file Frequency of Binge Drinking Not on file 03/28 Personal Safety Answer Date Recorded Getting School Help Needed Not on file 08/23 Comments Unknown Sex and Gender Information Value Date Recorded Sex Assigned at Not on file Legal Sex Female 2:07 AM TRANSPORT COMPANY MANAGER Gender Identity Female 04/01/2021 7:19 AM CDT Sexual Orientation Not on file Obstetrics History Last Filed Vital Signs Vital Sign Reading Time Taken Comments Blood Pressure 142/70 02/09/2023 10:11 AM CDT Pulse 82 02/09/2023 10:11 AM CDT Temperature 36.4 C (97.5 F) 06/10/2020 8:47 AM CDT Respiratory Rate - - Oxygen Saturation 97% 02/09/2023 10:11 AM CDT Inhaled Oxygen Concentration - - Weight 65.8 kg (145 lb) 02/09/2023 10:11 AM CDT Height 157.5 cm (5' 2) 02/09/2023 10:11 AM CDT Body Mass Index 26.52 02/09/2023 10:11 AM CDT Plan of Treatment Health Maintenance Due Date Last Done Comments Depression Screening 1940 Fall Risk Assessment 1940 Osteoporosis Screening-Bone Density Scan 1939 DTaP/Tdap/Td Vaccine (1 - Tdap) 1950 Hepatitis B Screening 1957 Well Visit 65+ 2004 Zoster Vaccine (3 of 3) 11/22/2018 09/27/2018, 07/23 Covid-19 Vaccine (4 - 2024-2 6 season) 2025 07/01/2021, 11/16/2020, 10/08/2020 Influenza Vaccine (#1) 2025 2, 05/26/2021, 05/22/2020, Additional history exists Pneumococcal vaccine 65+ Completed 06/13/2022, 0202/2017 Insurance AETNA MEDICARE [employer] [address] Care Teams Clamp Carrier Operator Relationship Specialty Start Date End Date Jose Moe MD PCP - General Family Practice 01/27/23
== END 2025-05-12 14:08 | disposition home or self-care (01) ==
LOC: ANHFOHIMG 14:08
PROVIDERS: PCP Nurse Practitioner Family; Visit Provider Internal Medicine Gastroenterology
DX: K74.3 Primary biliary cirrhosis (principal); M85.852 Other specified disorders of bone density and structure, left thigh; M85.851 Other specified disorders of bone density and structure, right thigh
CPT/HCPCS: 77080